=== PATIENT | male | born 1965 | race Caucasian/White ===

== ENCOUNTER → 2022-07-14 | Outpatient (CLI) | payer BC, SELFPAY ==
[2022-07-14 14:37] LABS: Erythrocyte Sedimentation Rate 7 mm/hr (0-20)
[2022-07-14 15:19] LABS: AST(SGOT) 32 U/L (15-37); Alanine Aminotransfer ALT/SGPT 69 U/L (16-61); Albumin, Serum 3.9 g/dL (3.2-5.0); Alkaline Phosphatase 106 U/L (45-117); Amylase 76 U/L (25-115); Anion Gap 4 (5-15); BUN 14 mg/dL (7-18); BUN/Creat Ratio 13.6 RATIO (10-20); CRP < 2.90 mg/L (0.0-3.0); Calcium,Total 9.3 mg/dL (8.5-10.1); Chloride 108 mmol/L (98-107); Creatinine, Serum 1.03 mg/dL (0.70-1.30); EST Glomerular Filtration Rate 79 mL/min (>60); Est Glom Filt Rate - Afr Amer 95 mL/min (>60); Globulin 4.1 g/dL (2.2-4.2); Glucose 105 mg/dL (74-106); LDH 247 U/L (87-241); Lipase 162 U/L (73-393); Potassium 4.9 mmol/L (3.5-5.1); Sodium Level 140 mmol/L (136-145)
[2022-07-16 13:08] LABS: Anti-Centromere B Ab <0.2 AI (0.0-0.9); Anti-Chromatin <0.2 AI (0.0-0.9); Anti-Jo <0.2 AI (0.0-0.9); Anti-Scleroderma-70 AB <0.2 AI (0.0-0.9); RNP Ab <0.2 AI (0.0-0.9); SJOGREN'S Anti-SS-A test < 0.2 AI (0.0-0.9); SJOGREN'S Anti-SS-B test < 0.2 AI (0.0-0.9); Smith Ab <0.2 AI (0.0-0.9)
[2022-07-16 15:08] LABS: Endomysial Antibody IgA Positive (Negative)
[2022-07-17 17:47] LABS: Immunoglobulin A 337 mg/dL (90-386); t-Transglutaminase IgA 39 U/mL (0-3)
[2022-07-17 17:51] LABS: Anti-dsDNA Ab <1 IU/mL (0-9)
[2022-07-23 11:08] LABS: Albumin 3.9 g/dL (2.9-4.4); Alpha-1-Globulins 0.2 g/dL (0.0-0.4); Cytoplasmic Ab (C-ANCA) <1:20 titer (Neg:<1:20); Immunoglobulin A 326 mg/dL (90-386); Immunoglobulin G 942 mg/dL (603-1613); Immunoglobulin M 44 mg/dL (20-172); PROEL- TOTAL PROTEIN 7.3 g/dL (6.0-8.5)
[2022-07-23 11:21] LABS: Immunoglobulin E 42 IU/mL (6-495); Perinuclear Ab (P-ANCA) <1:20 titer (Neg:<1:20)
== END | disposition home or self-care (01) ==
LOC: LAB 13:49
PROVIDERS: PCP Family Medicine; Referring Provider Internal Medicine Gastroenterology; Visit Provider Internal Medicine Gastroenterology
DX: K83.4 Spasm of sphincter of Oddi (principal); K86.1 Other chronic pancreatitis; R79.89 Other specified abnormal findings of blood chemistry
CPT/HCPCS: 36415; 80053; 82150; 82784; 82785; 83516; 83615; 83690; 84165; 85652; 86140; 86225; 86235; 86255; 86256; 86334

== ENCOUNTER → 2022-07-15 | Outpatient (CLI) | payer BC, SELFPAY ==
[2022-07-18 13:04] LABS: Pancreatic Elastase, Fecal 183 (>200)
[2022-07-20 09:22] LABS: Calprotectin, Stool 166 ug/g (0-120); Fats, Neutral Normal (.); Fats, Total Increased (.)
== END | disposition home or self-care (01) ==
PROVIDERS: PCP Family Medicine; Referring Provider Internal Medicine Gastroenterology; Visit Provider Internal Medicine Gastroenterology
DX: K58.9 Irritable bowel syndrome, unspecified (principal); K86.1 Other chronic pancreatitis; K83.4 Spasm of sphincter of Oddi; R79.89 Other specified abnormal findings of blood chemistry
CPT/HCPCS: 82653; 82705; 83630; 83993; 87493; 87506

== ENCOUNTER → 2022-07-23 | Outpatient (CLI) | payer BC, SELFPAY ==
--- NOTE | 2022-07-23 17:40 | CT_ITS ---
EXAM: CT ABDOMEN AND PELVIS WITH INTRAVENOUS CONTRAST CLINICAL INDICATION: abdominal pain TECHNIQUE: Helically acquired images were obtained of the abdomen and pelvis with intravenous contrast. This CT exam was performed using one or more of the following dose reduction techniques: automated exposure control, adjustment of the mA and/or kV according to patient size, and/or use of iterative reconstruction technique. This report was created using [employer] report generation technology. CONTRAST: Oral and amp; IV Readi-CAT and amp; 100mL Isovue-370 RADIATION DOSE: CTDIvol = 19.80 mGy, DLP = 1082.83 mGy-cm. COMPARISON: None. FINDINGS: LOWER THORAX: Unremarkable. Lung bases are clear. No cardiomegaly. No significant pericardial effusion. ABDOMEN: LIVER: Unremarkable. Homogeneous. No focal mass. GALLBLADDER AND BILE DUCTS: Cholecystectomy. No intra- or extrahepatic biliary ductal dilation. PANCREAS: Unremarkable. No focal cystic or solid mass. SPLEEN: Unremarkable. Normal size without focal cystic or solid mass. ADRENALS: Unremarkable. No nodules. KIDNEYS AND URETERS: Small well-circumscribed simple 1.7 cm x 1.3 cm left medial mid renal cyst. No follow-up is necessary. Normal renal size and position. No hydronephrosis. STOMACH AND BOWEL: Oral contrast reached the proximal transverse colon, no obstruction. Moderate stool in the proximal half of the colon, moderate gas in the distal colon and rectum. Possibly mild wall thickening of the jejunal segment, in the left upper abdomen. PELVIS: APPENDIX: Unremarkable retrocecal appendix contains gas. BLADDER: Unremarkable. REPRODUCTIVE: Unremarkable as visualized. No mass. ABDOMEN and PELVIS: INTRAPERITONEAL SPACE: Unremarkable. No ascites or other fluid collection. No free air. BONES/JOINTS: Incidental small typical benign bone hemangioma in T9. No spinal stenosis. No suspicious lytic or blastic abnormality. SOFT TISSUES: Mild bulging into the proximal inguinal rings, no inflammatory changes. No discrete abdominal or pelvic wall hernia. VASCULATURE: Unremarkable. Abdominal aorta is non-dilated. LYMPH NODES: Minimal mesenteric adenopathy. CT/Abdomen/Pelvis WITH Contrast IMPRESSION: Suspicion of jejunal enteritis. No bowel obstruction. Moderate colonic gas and stool. Electronically Signed: Tita Mason MD at 6:42 EDT ,
== END | disposition home or self-care (01) ==
LOC: CT 17:37
PROVIDERS: PCP Family Medicine; Referring Provider Internal Medicine Gastroenterology; Visit Provider Internal Medicine Gastroenterology
DX: K83.4 Spasm of sphincter of Oddi (principal); K86.1 Other chronic pancreatitis; R79.89 Other specified abnormal findings of blood chemistry
CPT/HCPCS: 74177; Q9967

== ENCOUNTER → 2023-01-12 | Outpatient (CLI) | payer BC, SELFPAY ==
[2023-01-12 16:28] LABS: Erythrocyte Sedimentation Rate 14 mm/hr (0-20)
[2023-01-12 16:40] LABS: CRP < 2.90 mg/L (0.0-3.0)
[2023-01-14 15:08] LABS: Endomysial Antibody IgA Negative (Negative); Immunoglobulin A 333 mg/dL (90-386); t-Transglutaminase IgA 4 U/mL (0-3)
== END | disposition home or self-care (01) ==
LOC: LAB 15:11
PROVIDERS: PCP Family Medicine; Referring Provider Internal Medicine Gastroenterology; Visit Provider Internal Medicine Gastroenterology
DX: K90.0 Celiac disease (principal); K85.00 Idiopathic acute pancreatitis without necrosis or infection
CPT/HCPCS: 36415; 82784; 83516; 85652; 86140; 86255

== ENCOUNTER → 2023-01-16 | Outpatient (CLI) | payer BC, SELFPAY ==
[2023-01-21 15:08] LABS: Pancreatic Elastase, Fecal 137 (>200)
== END | disposition home or self-care (01) ==
LOC: LABSPEC 06:15
PROVIDERS: PCP Family Medicine; Referring Provider Internal Medicine Gastroenterology; Visit Provider Internal Medicine Gastroenterology
DX: K90.0 Celiac disease (principal); K85.00 Idiopathic acute pancreatitis without necrosis or infection
CPT/HCPCS: 82653

== ENCOUNTER → 2023-05-07 | Outpatient (CLI) | payer BC, SELFPAY ==
[2023-05-07 15:11] LABS: Erythrocyte Sedimentation Rate 17 mm/hr (0-20)
[2023-05-07 15:43] LABS: CRP < 2.90 mg/L (0.0-3.0)
[2023-05-11 14:08] LABS: Endomysial Antibody IgA Negative (Negative); Immunoglobulin A 302 mg/dL (90-386); t-Transglutaminase IgA <2 U/mL (0-3)
== END | disposition home or self-care (01) ==
LOC: LAB 14:27
PROVIDERS: PCP Family Medicine; Referring Provider Internal Medicine Gastroenterology; Visit Provider Internal Medicine Gastroenterology
DX: K90.0 Celiac disease (principal)
CPT/HCPCS: 36415; 82784; 83516; 85652; 86140; 86255

== ENCOUNTER 2023-07-20 09:34 | Day surgery (SDC) | payer BC, SELFPAY ==
[2023-07-20] VITALS (8 sets, daily range): BP systolic 94–141; BP diastolic 71–90; PULSE 64–77; RESP 12–18; TEMP 36.3–36.7; O2SAT 97–100; BMI 25.4
--- NOTE | 2023-07-20 09:54 | HP.PCM_ITS ---
History and Physical Date of Admission: 07/20/23 57 M who presents to the office today for FH colon cancer with mets to liver mother with age 52; father colitis; brother colitis with r/t esophageal vessel rupture. Prior workup: MRI abd 06.11.18 OSH with degradation of exam r/t motion. Distal pancreatic cyst 3mm. Hepatic subcentimeter cysts noted with right lobe, steatosis. *BGI established 07.14.22 with history of idiopathic chronic pancreatitis and previously diagnosed sphincter Oddi dysfunction by Dr. Pitts [facility]. Utilizes Creon 36k 2 tabs with meals to manage pancreatitis; increased approximately a ye ar prior and aided in reducing frequency. Feels he is doing overall well but has issues several times a month with LUQ abdominal pain radiating into back, increased flatulence; symptoms previously lasted approximately a day but have since been lasting longer. Previous doctor prescribed PRN oxycodone for the pain which was helpful and will follow a clear liquid diet. GERD and issue which is managed with Prilosec 20mg QD. ? Biochemical CRP, ANCA, amylase, CMP (ALT H69), lipase, ESR, GAME, ALBINA without pertinent abnormality. LDH H247, Celiac +, tiss transglutaminase H39 Stool testing C.Difficile (cancelled), enteric pathogen, lactoferrin WNL. Ova/parasites and giardia not run. Calprotectin H166, Elastase L183, total fats increased Contact 07.18.22 to discuss results. ? CT abd/pel 07.23.22 with findings suggestive of jejunal enteritis and moderate colonic gas and stool burden. OV 10.10.22 suspect celiac disease-causing EPI resulting in pancreatitis, though there is possibility of chronic pancreatitis not related to celiac disease. Perform blood/stool testing after 3 months of gluten free. OV 01.12.23 Feels he is doing well since going gluten free; will continue to have intermittent bloating and pain that he can trace to foods. Does not wish to see esthetician facialist at this time. ? Biochemical ESR, CRP WNL. ? Celiac +, tiss transglutaminase 4 ? Stool elastase L 137 Contact 01.15.23 with bloodwork results, start gluten free diet. Contact 01.22.23 to increase Creon to 3 with meals and two with snacks; call in 1-2 months with an update. ? Biochemical 05.07.23 ESR, CRP, celiac WNL. OV 05.22.23 Is doing over all well since last visit. Has been trying hard to continue gluten free diet. Still has intermittent abdominal pain. Unsure if related to gluten intake or not. BM normal/ ROS Const Constitutional: No fatigue ENT ENT: No difficulty swallowing Gastro GI: Positive for excessive flatus and nausea/dyspepsia; No abdominal pain, belching, bloating, change in bowel habits, change in stool character, coffee ground emesis, constipation, cramping, diarrhea, heartburn, difficulty swallowing, feeling full early, incontinent of stools, Vomiting blood/hematemesis, Blood in stool, loose stools, Black,tarry stools, pain with swallowing, vomiting or other Musc Musculoskeletal: No joint pain Skin Skin: No yellowing of the eye or itchy eyes Psych Psychiatric: No anxiety and No depression Endo Endocrine: No fatigue Aller/Imm Allergy/Immunologic: No itchy eyes Ag/Lymp Hematologic/Lymphatic: No easy bleeding or easy bruising Exam Const General: cooperative and comfortable Nutritional Appearance: average body habitus and well nourished [facility] Head: normal to inspection Ears: hearing grossly normal bilaterally Nose: external nose normal Face and sinus: normal facial exam Mouth: oral mucosae normal Throat: posterior oropharynx normal Eyes General: appearance normal, both eyes and all related structures Neck Neck: normal visual inspection Chest Chest palpation & inspection: normal inspection of the chest and normal palpation of entire chest wall Resp Effort & Inspection: normal respiratory effort Auscultation: Bilateral: Clear to Auscultation Cardio Palpation: normal PMI Rate: regular rate Rhythm: regular rhythm GI Inspection: normal to inspection Auscultation: normal bowel sounds Percussion: normal to percussion Palpation: no hepatosplenomegaly Skin General: no rashes or lesions noted Neuro General: patient alert Extrem General: normal to inspection Psych Affect: normal affect Quality Reporting Tobacco Screening ([facility] 138) Smoking Status: Former smoker Assessment and Plan Assessment and Plan (1) Celiac disease: Status: Chronic Plan: From his imaging showing jejunitis, stool studies that show elevated fecal calprotectin and low fecal elastase, a high antiendomysial antibody and a very high tissue transglutaminase antibody I suspect that he has celiac disease that is indirectly causing exocrine pancreatic insufficiency therefore resulting in pancreatitis. (2) Idiopathic pancreatitis: Status: Chronic Qualifiers: Chronicity: acute Acute pancreatitis complication: unspecified Qualified Code(s): K85.00 - Idiopathic acute pancreatitis without necrosis or infection Plan: It is possible that he has elements of chronic pancreatitis because he says that anytime he has any alcohol he gets abdominal pain that is include sugar alcohols and alcohols such as alcohol and mouthwash. Otherwise he does not take in any alcohol because of the pain associated with it. I told him that we would have to see what his tissue transglutaminase does, ESR, CRP, fecal calprotectin and fecal elastase is after 3 months of being on a gluten-free diet. 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 There are no clinical changes since date of exam.
[2023-07-20] MEDS: Lactated Ringers 1,000 ML 15 ML IV (10:01)
--- NOTE | 2023-07-20 11:01 | OP.CCLET_ITS ---
07/20/2023 Israel Haque MD Re : Colonoscopy procedure for Destin Alexandra Dear Dr. Haque This procedure was performed on Thursday, July 20, 2023. My impressions and recommendations are as follows: Impressions : - Diverticulosis in the sigmoid colon. - The examination was otherwise normal on direct and retroflexion views. - No specimens collected. Recommendations : - Discharge patient to home. - Resume previous diet. - Continue present medications. - Repeat colonoscopy in 10 years for screening purposes. My findings are described in the full procedure note, which is enclosed. If I can be of further assistance, please feel free to contact me at . Sincerely, Harvey Pereira, 07/20/2023 11:00:27 AM This report has been signed electronically.
--- NOTE | 2023-07-20 11:01 | OP.COLON_ITS ---
Patient Name: Destin Alexandra Procedure Date: 07/20/2023 10:25 AM Date of : 1965 Age: 57 Procedure: Colonoscopy Indications: Screening for colorectal malignant neoplasm Providers: Harvey Pereira DO Referring MD: Israel Haque MD Medicines: Monitored Anesthesia Care Patient Profile: This is a 57 year old male. Refer to note in patient chart for documentation of history and physical. Last Colonoscopy: date unknown. Unable to locate last colonoscopy report. Complications: No immediate complications. Procedure: Pre-Anesthesia Assessment: - Prior to the procedure, a History and Physical was performed, and patient medications and allergies were reviewed. The patient is competent. The risks and benefits of the procedure and the sedation options and risks were discussed with the patient. All questions were answered and informed consent was obtained. Patient identification and proposed procedure were verified by the physician in the pre-procedure area. Mental Status Examination: alert and oriented. Airway Examination: normal oropharyngeal airway and neck mobility. Respiratory Examination: clear to auscultation. CV Examination: normal. Prophylactic Antibiotics: The patient does not require prophylactic antibiotics. Prior Anticoagulants: The patient has taken no anticoagulant or antiplatelet agents. ASA Grade Assessment: II - A patient with mild systemic disease. After reviewing the risks and benefits, the patient was deemed in satisfactory condition to undergo the procedure. The anesthesia plan was to use monitored anesthesia care (MAC). Immediately prior to administration of medications, the patient was re-assessed for adequacy to receive sedatives. The heart rate, respiratory rate, oxygen saturations, blood pressure, adequacy of pulmonary ventilation, and response to care were monitored throughout the procedure. The physical status of the patient was re-assessed after the procedure. After I obtained informed consent, the scope was passed under direct vision. Throughout the procedure, the patient's blood pressure, pulse, and oxygen saturations were monitored continuously. The pediatric colonoscope was introduced through the anus and advanced to the cecum, identified by appendiceal orifice and ileocecal valve. The colonoscopy was performed without difficulty. The patient tolerated the procedure well. The quality of the bowel preparation was adequate. The ileocecal valve, appendiceal orifice, and rectum were photographed. Scope In: 10:35:10 AM Scope Withdrawal Time 0 hours 9 minutes 19 seconds Scope Out: 10:50:30 AM Total Procedure Duration Time 0 hours 15 minutes 20 seconds Findings: The perianal and digital rectal examinations were normal. A few small-mouthed diverticula were found in the sigmoid colon. The exam was otherwise without abnormality on direct and retroflexion views. Impression: - Diverticulosis in the sigmoid colon. - The examination was otherwise normal on direct and retroflexion views. - No specimens collected. Recommendation: - Discharge patient to home. - Resume previous diet. - Continue present medications. - Repeat colonoscopy in 10 years for screening purposes. Procedure Code(s): --- Professional --- G0121, Colorectal cancer screening; colonoscopy on individual not meeting criteria for high risk CPT copyright 2021 [employer]. All rights reserved. The codes documented in this report are preliminary and upon private watchman review may be revised to meet current compliance requirements. Harvey Pereira DO 07/20/2023 11:00:27 AM This report has been signed electronically. Number of Addenda: 0 Note Initiated On: 07/20/2023 10:25 AM
== END 2023-07-20 11:48 | disposition home or self-care (01) ==
LOC: EN 09:35 → AC 09:36
PROVIDERS: PCP Family Medicine; Referring Provider Family Medicine; Visit Provider Internal Medicine Gastroenterology
PROC: 0DJD8ZZ Inspection of Lower Intestinal Tract, Via Natural or Artificial Opening Endoscopic (ICD-10-PCS; CPT 45378; principal; 2023-07-20 10:25)
DX: K90.0 Celiac disease (principal); K57.30 Diverticulosis of large intestine without perforation or abscess without bleeding; Z87.891 Personal history of nicotine dependence; Z80.0 Family history of malignant neoplasm of digestive organs; K85.00 Idiopathic acute pancreatitis without necrosis or infection
CPT/HCPCS: 45378; J7120; J2405

== ENCOUNTER → 2023-08-06 | Outpatient (CLI) | payer BC, SELFPAY ==
--- NOTE | 2023-08-06 13:36 | CT_ITS ---
STUDY: CT ABDOMEN AND PELVIS WITH CONTRAST REASON FOR EXAM: Male, 57 years old. Abdominal pain. History of celiac disease. Chronic abdominal pain. RADIATION DOSAGE (If Supplied By Facility): CTDIvol = ( 15.35 ) mGy, DLP = ( 750.74 ) mGycm TECHNIQUE: Transaxial images were obtained from the dome of the diaphragm to the symphysis pubis with oral contrast. Oral and amp;amp; IV Readi-CAT and amp;amp; 100mL Isovue-300 was administered. Sagittal and coronal images were reconstructed. Individualized dose optimization techniques were used for this CT. COMPARISON: Comparison is made with prior study dated July 23, 2022. FINDINGS: The visualized lung bases are unremarkable. The visualized portions of the heart are within normal limits. There is decreased attenuation of the liver consistent with steatosis. The patient is status post cholecystectomy. Normal spleen. Heterogeneous enlargement of the head of the prostate with tiny cystic changes within. Correlation with ultrasound or MRI is recommended. Normal bilateral adrenal glands. Normal right kidney. Stable 1.7 cm cyst in the medial aspect of the left kidney. Normal visualized stomach. Normal small intestine. There are scattered colonic diverticula consistent with diverticulosis. The appendix is visualized and appears normal. Normal abdominal aorta. Normal inferior vena cava. Normal retroperitoneum. Normal urinary bladder. Normal abdominal wall. There are mild degenerative changes of the visualized lumbar spine. CT/Abdomen/Pelvis WITH Contrast IMPRESSION: Heterogeneous enlargement of the head of the pancreas with tiny cystic changes within. Correlation with ultrasound and/or MRI is recommended for further evaluation. Electronically Signed: Carlos Casillas MD at 15:22 EST ,
== END | disposition home or self-care (01) ==
LOC: CT 13:35
PROVIDERS: PCP Family Medicine; Referring Provider Internal Medicine Gastroenterology; Visit Provider Internal Medicine Gastroenterology
DX: K90.0 Celiac disease (principal); R10.84 Generalized abdominal pain
CPT/HCPCS: 74177; Q9967

== ENCOUNTER → 2023-08-24 | Outpatient (CLI) | payer BC, SELFPAY ==
--- NOTE | 2023-08-24 10:38 | US_ITS ---
INDICATION: CT 11.9.23 abnormality recommend US, PANCREATITIS EXAMINATION: Ultrasound US Abdomen RUQ (limited) TECHNIQUE: Ac scale and color doppler imaging was performed of the right upper quadrant. COMPARISON: 08/06/2023 CT and 07/23/2015 ultrasound. FINDINGS: LIVER: Heterogeneous increased echogenicity. Mildly enlarged with the right lobe length measuring 16.4 cm No evidence of a mass. No intrahepatic duct dilation. GALLBLADDER: Status post cholecystectomy. COMMON BILE DUCT: Normal measuring 3 mm in diameter. PANCREAS: Nonvisualization of the pancreas due to overlying bowel gas. RIGHT KIDNEY: 5 mm nonobstructing stone. FREE FLUID: No free fluid in the right upper quadrant. US/Abdomen Limited IMPRESSION: 1. Pancreas not visualized due to overlying bowel gas. 2. Fatty infiltration of the liver and mild hepatomegaly. 3. No evidence of an acute abnormality in the right upper quadrant. Electronically Signed: Israel Beck DO at 5:37 EST ,
== END | disposition home or self-care (01) ==
LOC: US 10:37
PROVIDERS: PCP Family Medicine; Referring Provider Internal Medicine Gastroenterology; Visit Provider Internal Medicine Gastroenterology
DX: K85.00 Idiopathic acute pancreatitis without necrosis or infection (principal)
CPT/HCPCS: 76705

== ENCOUNTER → 2023-11-16 | Outpatient (CLI) | payer BC, SELFPAY ==
[2023-11-16 15:06] LABS: ALB/GLOB Ratio 1.1 RATIO (0.9-2.4); AST(SGOT) 26 U/L (15-37); Alanine Aminotransfer ALT/SGPT 63 U/L (16-61); Albumin, Serum 3.8 g/dL (3.2-5.0); Alkaline Phosphatase 87 U/L (45-117); Amylase 79 U/L (25-115); Anion Gap 2 (5-15); BUN 13 mg/dL (7-18); BUN/Creat Ratio 11.9 RATIO (10-20); Calcium,Total 8.9 mg/dL (8.5-10.1); Chloride 111 mmol/L (98-107); Creatinine, Serum 1.09 mg/dL (0.70-1.30); EST Glomerular Filtration Rate 73 mL/min (>60); Est Glom Filt Rate - Afr Amer 89 mL/min (>60); Globulin 3.6 g/dL (2.2-4.2); Glucose 99 mg/dL (74-106); Lipase 46 U/L (13-75); Potassium 4.5 mmol/L (3.5-5.1); Protein, Total 7.4 g/dL (6.4-8.2); Sodium Level 140 mmol/L (136-145)
[2023-11-18 16:10] LABS: Carbohydrate AG 19-9 25 U/mL (0-35); Deamidated Gliadin IgA 25 units (0-19); Deamidated Gliadin IgG 8 units (0-19); Endomysial Antibody IgA Negative (Negative); Immunoglobulin A 330 mg/dL (90-386); t-Transglutaminase IgA <2 U/mL (0-3)
== END | disposition home or self-care (01) ==
LOC: LAB 13:47
PROVIDERS: PCP Family Medicine; Referring Provider Internal Medicine Gastroenterology; Visit Provider Internal Medicine Gastroenterology
DX: K90.0 Celiac disease (principal); K85.00 Idiopathic acute pancreatitis without necrosis or infection
CPT/HCPCS: 36415; 80053; 82150; 82784; 83516; 83690; 86255; 86301

== ENCOUNTER → 2023-11-17 | Outpatient (CLI) | payer BC, SELFPAY ==
--- OUTSIDE RECORDS SUMMARY | 2023-11-17 19:55 | XMS RPT_ITS | CCD ---
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 Name Role Phone Shama Santiago MD Primary Care Provider SHAMA SANTIAGO Attending Unavailable SHAMA SANTIAGO Primary Care Unavailable SHAMA SANTIAGO Primary Care Unavailable SHAMA SANTIAGO Referring Unavailable SHAMA SANTIAGO Primary Care Unavailable SHAMA SANTIAGO Referring Unavailable SHAMA SANTIAGO Attending Unavailable SHAMA SANTIAGO Primary Care Unavailable SHAMA SANTIAGO Referring Unavailable Shama Santiago MD Primary Care Provider SHAMA SANTIAGO Primary Care Unavailable FRIEND, DO GODFREY Attending Unavailable FRIEND, DO GODFREY Referring Unavailable Allergies Allergy Classification Reported Allergen(s) Allergy Type Date of Onset Reaction(s) Facility (2 sources) Penicillins; Translations: [PENICILLINS] Drug Allergy 11-05-2005 Swelling, Shortness of Breath [facility] Work Phone: (15 sources) topiramate; Translations: [TOPIRAMATE] Drug Allergy 2015 Other: See Comments [facility] Work Phone: (15 sources) Valproate; Translations: [DIVALPROEX SODIUM] Drug Allergy 2015 Other: See Comments [facility] Work Phone: (2 sources) Tetanus Vaccines And Toxoid; Translations: [TETANUS VACCINES AND TOXOID] Drug Allergy 11-05-2005 Swelling [facility] Work Phone: (13 sources) Penicillins Drug Allergy 11-05-2005 Swelling, Shortness of Breath [facility] Work Phone: (13 sources) Tetanus Vaccines And Toxoid Drug Allergy 11-05-2005 Swelling [facility] Work Phone: Medications Completed/Discontinued Medications Medication Drug Class(es) Dates Sig (Normalized) Sig (Original) amylase 087323 unt / lipase 95252 unt / protease [id number] unt delayed release oral capsule (17 sources) Start: 10-12-2021 End: 05-14-2023 take 3 capsules by mouth three times daily at mealtime zoivlb-ikquxilv-ka ylase (CREON) 36,000-114,000- 180,000 unit delayed release capsule Take 3 capsules by mouth three times daily with meals. 810 capsule 3 05/14/2023 Active Problems Active Problems Problem Classification Problem Date Documented Da te Episodic/Chronic Biliary tract disease (15 sources) Dysfunction of sphincter of Oddi; Translations: [Spasm of sphincter of Oddi] Onset: 5 05-12-2017 Chronic Calculus of urinary tract (14 sources) Urolithiasis ; Translations: [Urinary calculus, unspecified] 09-23-2021 Episodic Disorders of lipid metabolism (18 sources) Mixed hyperlipidemia; Translations: [Mixed hyperlipidemia] Onset: 5 2015 Chronic Esophageal disorders (18 sources) Gastroesophageal reflux disease without esophagitis; Translations: [Gastro-esophageal reflux disease without esophagitis] Onset: 6 09-23-2021 Chronic Headache; including migraine (17 sources) Migraine without aura, not refractory ; Translations: [Migraine without aura, not intractable, without status migrainosus] Onset: 6 11-08-2015 Chronic Other gastrointestinal disorders (13 sources) Celiac disease; Translations: [Celiac disease] Onset: 3 Chronic Other screening for suspected conditions (not mental disorders or infectious disease) (15 sources) Liver function tests abnormal; Translations: [Abnormal results of liver function studies] Onset: 6 2015 Episodic Other upper respiratory disease (15 sources) Allergic rhinitis; Translations: [Allergic rhinitis, unspecified] Onset: 6 11-17-2018 Chronic Other upper respiratory disease (14 sources) Deviated nasal septum; Translations: [Deviated nasal septum] 2015 Episodic Pancreatic disorders (not diabetes) (18 sources) Idiopathic chronic pancreatitis; Translations: [Other chronic pancreatitis] Onset: 05-12-2017 Chronic Past or Other Problems Problem Classification Problem Date Documented Date Episodic/Chronic Abdominal hernia (14 sources) Diaphragmatic hernia; Translations: [Diaphragmatic hernia without obstruction or gangrene] Onset: 10-05-2007 2015 Episodic Anal and rectal conditions (14 sources) Anal fissure; Translations: [Anal fissure, unspecified] Onset: 01-22-2012 2015 Episodic Diabetes mellitus without complication (18 sources) Hyperglycemia; Translations: [Impaired fasting glucose] Onset: 11-13-2017 11-13-2017 Episodic Genitourinary symptoms and ill-defined conditions (14 sources) Proteinuria; Translations: [Proteinuria, unspecified] Onset: 11-28-2016 05-12-2017 Episodic Immunizations and screening for infectious disease (1 source) Encounter for immunization; Translations: [Encounter for immunization] Onset: 10-15-2022 Episodic Other aftercare (1 source) Drug therapy finding; Translations: [Other assisted (current) drug therapy] Onset: 11-10-2016 11-13-2017 Episodic Other aftercare (20 sources) Patient encounter status; Translations: [Other assisted (current) drug therapy] Onset: 11-08-2015 09-12-2020 Episodic Other aftercare (1 source) Other assisted (current) drug therapy; Translations: [Medication management] Onset: 09-12-2020 Episodic Other skin disorders (14 sources) Vitiligo; Translations: [Vitiligo] Onset: 11-08-2015 11-17-2018 Episodic Pancreatic disorders (not diabetes) (15 sources) Cyst of pancreas; Translations: [Cyst of pancreas] Onset: 05-23-2019 05-23-2019 Episodic Screening and history of mental health and substance abuse codes (14 sources) Ex-smoker; Translations: [Personal history of nicotine dependence] Onset: 03-27-2021 03-27-2021 Episodic Results Test Name Value Interpretation Reference Range Facil ity Vital Signs Date Time Vital Sign Value Performing Clinician Elenita bradford 05-14-2023 15:09-0400 Body height 174 cm Shama Santiago MD Work Phone: [facility] 05-14-2023 15:09-0400 Body weight 77.56 kg Shama Santiago MD Work Phone: [facility] 05-14-2023 15:09-0400 Diastolic blood pressure 80 mm[Hg] Shama Santiago MD Work Phone: [facility] 05-14-2023 15:09-0400 Heart rate 68 /min Shama Santiago MD Work Phone: [facility] 05-14-2023 15:09-0400 Respiratory rate 16 /min Shama Santiago MD Work Phone: [facility] 05-14-2023 15:09-0400 SaO2% (BldA) [Mass fraction] 98 % Shama Santiago MD Work Phone: [facility] 05-14-2023 15:09-0400 Systolic blood pressure 128 mm[Hg] Shama Santiago MD Work Phone: [facility] 10-15-2022 14:36-0500 Diastolic blood pressure 80 mm[Hg] Shama Santiago MD Work Phone: [facility] 10-15-2022 14:36-0500 Systolic blood pressure 130 mm[Hg] Shama Santiago MD Work Phone: [facility] 10-15-2022 14:01-0500 Body weight 78.93 kg Shama Santiago MD Work Phone: [facility] 10-15-2022 14:01-0500 Heart rate 60 /min Shama Santiago MD Work Phone: [facility] 10-15-2022 14:01-0500 Respiratory rate 16 /min Shama Santiago MD Work Phone: [facility] 04-14-2022 14:00-0400 Body height 173.4 cm Shama Santiago MD Work Phone: [facility] 04-14-2022 14:00-0400 Body weight 78.47 kg Shama Santiago MD Work Phone: [facility] 04-14-2022 14:00-0400 Diastolic blood pressure 86 mm[Hg] Shama Santiago MD Work Phone: [facility] 04-14-2022 14:00-0400 Heart rate 64 /min Shama Santiago MD Work Phone: [facility] 04-14-2022 14:00-0400 Respiratory rate 14 /min Shama Santaigo MD Work Phone: [facility] 04-14-2022 14:00-0400 Systolic blood pressure 120 mm[Hg] Shama Santiago MD Work Phone: [facility] Encounters Encounter Date Encounter Type Care Provider Facility Start: 11-17-2023 Chart abstracting Shama mccray MD Work Phone: [facility] Procedures Date Procedure Procedure Detail Performing Clinician Start: 07-20-2023 Colonoscopy Shama mccray MD Work Phone: Start: 05-07-2023 Lipid 1996 panel - S darrell or Plasma Shama Santiago MD Work Phone: Start: 04-14-2022 Adult depression scr eening assessment Shama Santiago MD Work Phone: Start: 12-25-2017 Colonoscopy Shama mccray MD Work Phone: Plan of Treatment Date Care Activity Detail Author Start: 07-20-2033 Colonoscopy Colonoscopy [facility] Start: 07-20-2033 Colorectal Cancer Screening Colorectal Cancer Screening [facility] Start: 07-20-2033 Screening for malignant neoplasm of colon [facility] Start: 05-07-2028 Lipid 1996 panel - Serum or Plasma Lipid Screening [facility] Start: 05-07-2028 Lipid panel Lipid Screening [facility] Start: 05-07-2028 LIPID SCREEN LIPID SCREEN [facility] Start: 05-07-2028 PROSTATE CANCER SCREENING DISCUSSION PROSTATE CANCER SCREENING DISCUSSION [facility] Start: 05-07-2028 Prostate specific antigen measurement Prostate Cancer Screening Discussion [facility] Start: 10-15-2027 LIPID SCREEN LIPID SCREEN [facility] Start: 04-14-2027 LIPID SCREEN LIPID SCREEN [facility] Start: 04-14-2027 PROSTATE CANCER SCREENING DISCUSSION PROSTATE CANCER SCREENING DISCUSSION [facility] Start: 10-12-2026 LIPID SCREEN LIPID SCREEN [facility] Start: 05-07-2026 DIABETES SCREEN DIABETES SCREEN [facility] Start: 05-07-2026 Diabetes Screening Diabetes Screening [facility] Start: 04-03-2026 PROSTATE CANCER SCREENING DISCUSSION PROSTATE CANCER SCREENING DISCUSSION [facility] Start: 10-15-2025 DIABETES SCREEN DIABETES SCREEN [facility] Start: 04-14-2025 DIABETES SCREEN DIABETES SCREEN [facility] Start: 10-12-2024 DIABETES SCREEN DIABETES SCREEN [facility] Start: 10-30-2023 End: 12-30-2023 Comprehensive metabolic 2000 panel - Serum or Plasma COMP METABOLIC PANEL Lab Routine Mixed hyperlipidemia Expected: 10/30/2023, Expires: 12/30/2023 [facility] Work Phone: Immunizations Immunization Date Immunization Notes Care Provider Fa david 10-12-2021 influenza, injectabl e, quadrivalent, contains preservative Shama Santiago MD Work Phone: [facility] 01-10-2021 COVID-19 vaccine, fu ll dose (MODERNA) Shama Santiago MD Work Phone: [facility] 12-13-2020 COVID-19 vaccine, fu ll dose (MODERNA) Shama Santiago MD Work Phone: [facility] Work Phone: 11-13-2020 zoster vaccine recombinant Shama Santiago MD Work Phone: [facility] Work Phone: 09-12-2020 influenza, injectabl e, quadrivalent, contains preservative Shama Santiago MD Work Phone: [facility] 09-12-2020 zoster vaccine recombinant Shama Santiago MD Work Phone: [facility] Payers Date Payer Category Payer Unknown [employer] PPO OOS [id number] 2012-Present [phone] [address] [place] [address] PPO [id number] 2012 Unknown [employer] PPO OOS [id number] 2012-Present [phone] [address] [place] [address] PPO [id number] 2012 Unknown [id number] 1965 Unknown [id number] Unknown [id number] Social History Date Type Detail Facility Start: 06-30-2014 End: 10-15-2022 Tobacco smoking status NHIS Ex-smoker [facility] History of tobacco use Cigarette Smoker C [facility] Start: 10-12-2021 End: 05-14-2023 Alcohol intake Current non-drinker of alcohol (finding) [facility] Start: 1965 Sex Assigned At Not on file [facility] Start: 04-04-2022 End: 04-14-2022 Exposure to SARS-CoV-2 (event) Not sure [facility] History of tobacco use Current smoker [facility] Work Phone: Start: 06-30-2014 End: 05-14-2023 Cigarettes smoked current (pack per day) - Reported 1 [facility] Work Phone: Start: 06-30-2014 End: 10-15-2022 Tobacco use and exposure Smokeless tobacco non-user [facility] Work Phone: Start: 10-15-2022 Tobacco Comment quit [address] [place] [address] Start: 10-15-2022 End: 05-14-2023 Tobacco use panel [facility] Work Phone: Adult Depression Screening Assessment 0 [facility] Work Phone: Clinical Notes 01-29-2022 to 11-17-2023 Isaac Mora LPN - 11/17/2023 10:20 AM ESTTelephone Encounter - Shama Santiago MD - 10/25/2023 8:25 PM ESTTelephone Encounter - Ellen Villanueva Ma - 10/24/2023 9:40 AM EST Note Date & Type Note Facility 11-17-2023 History of Presen t illness Narrative Scan on 11/16/2023 3:29 PM by Provider, SCAR Martinez: Chemistry documented in this encounter [facility] 10-25-2023 Miscellaneous Notes The following approved medication requests have been transmitted electronically. Requested Prescriptions Signed Prescriptions Disp Refills atorvastatin (LIPITOR) 10 mg tablet 90 tablet 1 Sig: TAKE 1 TABLET DAILY AT BEDTIME FOR CHOLESTEROL Authorizing Provider: SHAMA SANTIAGO MD Patient has been identified by name and date of : Yes, Provider Shama Santiago MD Date October 24, 2023 Time 9:40 AM Patient phones for refill(s): Requested Prescriptions Pending Prescriptions Disp Refills atorvastatin (LIPITOR) 10 mg tablet [Pharmacy Med Name: ATORVASTATIN TABS 10MG] 90 tablet 3 Sig: TAKE 1 TABLET DAILY AT BEDTIME FOR CHOLESTEROL Date of last office visit in primary care: 05/14/2023 Date of next office visit in primary care: 11/18/2023 Please advise. Thank you. Ellen Villanueva Ma. documented in this encounter [facility] 07-23-2023 Miscellaneous Notes The following approved medication requests have been transmitted electronically. Requested Prescriptions Signed Prescriptions Disp Refills omeprazole (PRILOSEC) 20 mg capsule 90 capsule 1 Sig: Take 1 capsule by mouth once daily. Authorizing Provider: SHAMA SANTIAGO propranolol ER (INDERAL LA) 80 mg 24 hr capsule 90 capsule 1 Sig: Take 1 capsule by mouth once daily. Authorizing Provider: SHAMA SANTIAGO MD Last refill 01/14/23 Qty: 90 with 1 refill [facility] 05/14/23 NOV 11/18/23 Isaac Mora LPN Pharmacy verified in [facility] Patient has been identified by name and date of : Yes Patient aware RX will be sent to pharmacy. No need to notify patient. Patient phones for refill(s): Requested Prescriptions Pending Prescriptions Disp Refills omeprazole (PRILOSEC) 20 mg capsule 90 capsule 1 Sig: Take 1 capsule by mouth once daily. propranolol ER (INDERAL LA) 80 mg 24 hr capsule 90 capsule 1 Sig: Take 1 capsule by mouth once daily. Date of last office visit : 05/14/2023 Date of next office visit : 11/18/2023 Last 2 Encounter Wt Readings: Date: Wt: 05/14/2023 77.6 kg (171 lb) 10/15/2022 78.9 kg (174 lb) Not applicable Please advise. Mya Barnard documented in this encounter [facility] 07-21-2023 Note HNO ID: [id number] Author: Becka Clark LPN Service: ? Author Type: ? Type: Progress Notes Filed: 07/21/2023 6:16 PM Note Text: Scan on 07/20/2023 11:13 AM by Michelle Maloney PA-C: Colonoscopy Scan on 07/20/2023 11:10 AM by Michelle Maloney PA-C: Colonoscopy [facility] 07-21-2023 History of Presen t illness Narrative Scan on 07/20/2023 11:13 AM by Michelle Maloney PA-C: Colonoscopy Scan on 07/20/2023 11:10 AM by Michelle Maloney PA-C: Colonoscopy documented in this encounter [facility] 05-14-2023 Note HNO ID: [id number] Author: Shama Santiago MD Service: ? Author Type: Physician Type: Progress Notes Filed: 05/14/2023 7:50 PM Note Text: Chief Complaint Patient presents with: Physical HPI Destin Alexandra is a 57 year old male who presents here today for Physical. Office visit - Physical 05/14/2023 Patient with Hx of Chronic pancreatitis, elevated fasting blood sugar, GERD, hyperlipidemia, Migraines as well as those reviewed and addresed below and in ROS. Patient has been doing ok. Had a pancreatitis flare last week and needs a refill of his percocet he takes prn. Office visit - 6 month follow up 10/15/2022 Patient with Hx of Chronic pancreatitis, elevated fasting blood sugar, GERD, hyperlipidemia, Migraines as well as those reviewed and addresed below and in ROS. Patient has seen Dr. Pereira in [place] and has been diagnosed with Celiac disease and he suspects this may be causing his pancreatitis attacks. Past medical history, appointments, medications, allergies reviewed. Previous Medical History PAST MEDICAL HISTORY Diagnosis Date Allergic rhinitis 11/05/2005 Anal fissure 01/22/2012 Celiac disease 10/15/[address] Pereira Current use of proton pump inhibitor 11/10/2016 Mg check 10/2017 Current use of proton pump inhibitor 11/10/2016 Mg check 10/2017 Deviated nasal septum per CT: recurrent sinusitis Diaphragmatic hernia without mention of obstruction or gangrene 10/05/2007 Elevated fasting blood sugar 11/13/2017 Ex-smoker 03/27/2021 Started 14 and quit 5 years later. Smoked 1 pack per week Gastroesophageal reflux disease without esophagitis 11/08/2015 Normal EGD 2006, while on PPI Idiopathic chronic pancreatitis (HCC) 05/12/2017 Causes was not determined (but may been the Depakote or Topamax he was on and is a side affect) Migraine without aura and without status migrainosus, not intractable 11/08/2015 has had benefits from Midrin, inderal, Imitrex, Ellavil. 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 10/30 liver US normal; 11/01 CT: poss. 4mm liver cyst; 09/29 hepatitis serology A,B,C negative Pancreatic cyst 05/23/2019 With Hx of pancreatitis will get US every 3 yrs. Next due 2020. Proteinuria 11/28/2016 Recheck 12/2016 was neg. Sphincter of Oddi dysfunction 2015 Syncope and collapse 01/01 referral to Kare[facility] Isaacs, neuro: diagnosed as vasovagal. EEG normal. Also 2D echo Normal; carotid duplex: 0-29% stenosis. CT WWO contrast brain: negative except left maxillary sinusitis; deviated septum, retention cyst Urinary calculus, unspecified Renal stones, multiple CT confirmations: at least seven occurrences. Stones: calcium oxalate/ calcium phospate. 24 urine: calcium, creatinine, Na normal; citrate low, uric acid and oxalate high Vitiligo 11/08/2015 Previous Surgical History PAST SURGICAL HISTORY Procedure Laterality Date CHOLECYSTECTOMY 07/04/14 COLONOSCOPY 02/02/12 repeat 5 yrs COLONOSCOPY FLX DX W/COLLJ SPEC WHEN PFRMD 10/05/2007 Colonoscopy COLONOSCOPY FLX DX W/COLLJ SPEC WHEN PFRMD 12/25/2017 Colonoscopy - 5 year follow-up normal-family history- ESOPHAGOGASTRODUODENOSCOPY TRANSORAL DIAGNOSTIC 10/05/2007 EGD FECAL OCCULT BLOOD TEST 11/28/2016 negative PAST SURGICAL HISTORY OF 1985 muscle biopsy--myositis?; symptoms resolved at intake visit 06/04 SEPTOPLASTY/SUBMUCOUS RESECJ W/WO CARTILAGE GRF 2003 Septoplasty SPHINCTEROTOMY ANAL DIVISION SPHINCTER SPX 02/03/12 Family History FAMILY HISTORY Problem Relation Age of Onset Colon Cancer Mother age 52, mets to liver Allergies Mother Stroke Father GI Father colitis, details unknown GI Brother colitis, details unknown; of esophageal vessel rupture Diabetes Other none Coronary Artery Disease Other none Allergies Sister Patient Allergies ALLERGIES Allergen Reactions Penicillins Swelling, Shortness of Breath Depakote [Divalproe* Other: See Comments pancreatitis Tetanus Vaccines An* Swelling Topamax [Topiramate] Other: See Comments Renal stones Current Medications Current Outpatient Medications on File Prior to Visit Medication Sig atorvastatin (LIPITOR) 10 mg tablet Take 1 tablet by mouth daily at bedtime. For cholesterol. omeprazole (PRILOSEC) 20 mg capsule Take 1 capsule by mouth once daily. propranolol ER (INDERAL LA) 80 mg 24 hr capsule Take 1 capsule by mouth once daily. smrjph-ufdljjri-xmlljtc (CREON) 36,000-114,000- 180,000 unit delayed release capsule Take 2 capsules by mouth three times daily with meals. hyoscyamine (LEVSIN) 0.125 mg tablet Take 1 tablet by mouth twice daily. promethazine (PHENERGAN) 12.5 mg tablet Take 1 tablet by mouth every 6 hours as ne (more content not included)... [facility] 05-14-2023 History of Presen t illness Narrative Chief Complaint Patient presents with: Physical HPI Destin Alexandra is a 57 year old male who presents here today for Physical. Office visit - Physical 05/14/2023 Patient with Hx of Chronic pancreatitis, elevated fasting blood sugar, GERD, hyperlipidemia, Migraines as well as those reviewed and addresed below and in ROS. Patient has been doing ok. Had a pancreatitis flare last week and needs a refill of his percocet he takes prn. Office visit - 6 month follow up 10/15/2022 Patient with Hx of Chronic pancreatitis, elevated fasting blood sugar, GERD, hyperlipidemia, Migraines as well as those reviewed and addresed below and in ROS. Patient has seen Dr. Pereira in [place] and has been diagnosed with Celiac disease and he suspects this may be causing his pancreatitis attacks. Past medical history, appointments, medications, allergies reviewed. Previous Medical History PAST MEDICAL HISTORY Diagnosis Date Allergic rhinitis 11/05/2005 Anal fissure 01/22/2012 Celiac disease 10/15/[address] Pereira Current use of proton pump inhibitor 11/10/2016 Mg check 10/2017 Current use of proton pump inhibitor 11/10/2016 Mg check 10/2017 Deviated nasal septum per CT: recurrent sinusitis Diaphragmatic hernia without mention of obstruction or gangrene 10/05/2007 Elevated fasting blood sugar 11/13/2017 Ex-smoker 03/27/2021 Started 14 and quit 5 years later. Smoked 1 pack per week Gastroesophageal reflux disease without esophagitis 11/08/2015 Normal EGD 2006, while on PPI Idiopathic chronic pancreatitis (HCC) 05/12/2017 Causes was not determined (but may been the Depakote or Topamax he was on and is a side affect) Migraine without aura and without status migrainosus, not intractable 11/08/2015 has had benefits from Midrin, inderal, Imitrex, Ellavil. Topamax discontinued because of increased kidney stones Mixed hyperlipidemia Myopathy, unspecified 10/85 myopathic illness characterized by proximal weakness, elevated CPK, normal NCS and EMG Nonspecific abnormal results of liver function study 09/29 09/29 Liver enzymes noted elevated on routine labwork. 10/30 liver US normal; 11/01 CT: poss. 4mm liver cyst; 09/29 hepatitis serology A,B,C negative Pancreatic cyst 05/23/2019 With Hx of pancreatitis will get US every 3 yrs. Next due 2020. Proteinuria 11/28/2016 Recheck 12/2016 was neg. Sphincter of Oddi dysfunction 2015 Syncope and collapse 01/01 referral to Kareem Isaacs, neuro: diagnosed as vasovagal. EEG normal. Also 2D echo Normal; carotid duplex: 0-29% stenosis. CT WWO contrast brain: negative except left maxillary sinusitis; deviated septum, retention cyst Urinary calculus, unspecified Renal stones, multiple CT confirmations: at least seven occurrences. Stones: calcium oxalate/ calcium phospate. 24 urine: calcium, creatinine, Na normal; citrate low, uric acid and oxalate high Vitiligo 11/08/2015 Previous Surgical History PAST SURGICAL HISTORY Procedure Laterality Date CHOLECYSTECTOMY 07/04/14 COLONOSCOPY 02/02/12 repeat 5 yrs COLONOSCOPY FLX DX W/COLLJ SPEC WHEN PFRMD 10/05/2007 Colonoscopy COLONOSCOPY FLX DX W/COLLJ SPEC WHEN PFRMD 12/25/2017 Colonoscopy - 5 year follow-up normal-family history- ESOPHAGOGASTRODUODENOSCOPY TRANSORAL DIAGNOSTIC 10/05/2007 EGD FECAL OCCULT BLOOD TEST 11/28/2016 negative PAST SURGICAL HISTORY OF 1985 muscle biopsy--myositis?; symptoms resolved at intake visit 06/04 SEPTOPLASTY/SUBMUCOUS RESECJ W/WO CARTILAGE GRF 2003 Septoplasty SPHINCTEROTOMY ANAL DIVISION SPHINCTER SPX 02/03/12 Family History FAMILY HISTORY Problem Relation Age of Onset Colon Cancer Mother age 52, mets to liver Allergies Mother Stroke Father GI Father colitis, details unknown GI Brother colitis, details unknown; of esophageal vessel rupture Diabetes Other none Coronary Artery Disease Other none Allergies Sister Patient Allergies ALLERGIES Allergen Reactions Penicillins Swelling, Shortness of Breath Depakote [Divalproe* Other: See Comments pancreatitis Tetanus Vaccines An* Swelling Topamax [Topiramate] Other: See Comments Renal stones Current Medications Current Outpatient Medications on File Prior to Visit Medication Sig atorvastatin (LIPITOR) 10 mg tablet Take 1 tablet by mouth daily at bedtime. For cholesterol. omeprazole (PRILOSEC) 20 mg capsule Take 1 capsule by mouth once daily. propranolol ER (INDERAL LA) 80 mg 24 hr capsule Take 1 capsule by mouth once daily. vkrbmw-ppnruuuu-azlhlvv (CREON) 36,000-114,000- 180,000 unit delayed release capsule Take 2 capsules by mouth three times daily with meals. hyoscyamine (LEVSIN) 0.125 mg tablet Take 1 tablet by mouth twice daily. promethazine (PHENERGAN) 12.5 mg tablet Take 1 tablet by mouth every 6 hours as needed. oxyCODONE IR (ROXICODONE) 5 mg immediate release tablet Take 1 tablet by mouth every 8 hours as needed for pain for up to 7 days. This is for recurrent pancreatitis outbreaks. SUMAtriptan Succinate 6 mg/0.5 mL crtg Inject 6 mg subcutaneously. As needed for migraine. May repeat after 1 hour if needed. No more than 2 doses in 24 hours. No current facility-administered medications on file prior to visit. Social History Social History Tobacco Use Smoking status: Former Packs/day: 1.00 Years: 10.00 Additional pack years: 0.00 Total pack years: 10.00 Types: Cigarettes Smokeless tobacco: Never Tobacco comments: quit 1993 Substance Use Topics Alcohol use: No Drug use: No Review of Symptoms REVIEW OF SYSTEMS GENERAL: No weight loss, malaise or fevers HEENT: Negative for frequent or significant headaches, No changes in hearing or vision, no nose bleeds or other nasal problems NECK: Negative for lumps, goiter, pain and significant neck swelling RESPIRATORY: Negative for cough, hemoptysis, wheezing, COPD, dyspnea or shortness of breath CARDIOVASCULAR: Negative for chest pain, leg swelling, hypertension, CHF or palpitations GI: No nausea, vomiting, or diarrhea and No heartburn or reflux symptoms. No blood : No history of dysuria, frequency or blood MUSCULOSKELETAL: Negative for new or changes in typical joint pain or swelling, back pain or muscle pain SKIN: Negative for lesions, rash, and itching PSYCH: Negative for sleep disturbance, mood disorder and recent psychosocial stressors HEMATOLOGY/LYMPHOLOGY: Negative for prolonged bleeding, bruising easily or swollen nodes ENDOCRINE: Negative for cold or heat intolerance, polyuria, polydipsia and goiter NEURO: No history of headaches, syncope, paralysis, seizures or tremors EXAM: BP 128/80 Pulse 68 Resp 16 Ht 174 cm (5' 8.5 ) Wt 77.6 kg (171 lb) SpO2 98% BMI 25.62 kg/m General Appearance: Well appearing, alert, in no acute distress, well-hydrated, well nourished.. Skin: Skin color, texture, turgor normal, no suspicious rashes or lesions. Head: Normocephalic, no masses, lesions, tenderness or abnormalities. Eyes: Anicteric sclera. Pupils are equally round and reactive to light. Extraocular movements are intact. . Ears: External ears, TM's normal, canals clear. Nose/Sinuses: Nares normal, septum midline, mucosa normal, no drainage or sinus tenderness. Oropharynx: Lips, mucosa, and tongue normal, teeth and gums normal, oropharynx normal. Neck: Supple, no adenopathy; thyroid symmetric, normal size, no bruits. Lungs: Lungs clear to auscultation. No wheezing, rhonchi, rales.. Heart: RRR without murmur, gallop, or rubs. No ectopy. Abdomen: Normal abdominal exam, Abdomen soft, non-tender. Bowel sounds normal. No masses, organomegaly. Extremities: No deformities, edema, skin discoloration, clubbing or cyanosis. Good capillary refill. . Musculoskeletal: No joint swelling, deformity, or tenderness. Peripheral Pulses: Normal. Neurologic: Gait normal. Reflexes normal and symmetric. Sensation to light touch and crainal nerves 2-12 intact.. Genitalia: Normal, Penis normal. No urethral discharge. Scrotum normal to palpation. No hernia.. Rectal: Normal exam. Health Maintenance List COLORECTAL CANCER SCREENING due on 12/25/2022 COVID-19 VACCINE(4 - Moderna series) due on 10/15/2023 DIABETES SCREEN due on 05/07/2026 LIPID SCREEN due on 05/07/2028 PROSTATE CANCER SCREENING DISCUSSION due on 05/07/2028 DEPRESSION ASSESSMENT Completed SHINGRIX VACCINE Completed DTAP,TDAP,TD Discontinued INFLUENZA Discontinued HEPATITIS C SCREENING Discontinued HIV SCREENING Discontinued Data reviewed Component Latest Ref Rng & Units 10/15/2022 05/07/2023 WBC 3.70 - 11.00 k/uL 7.22 RBC 4.20 - 6.00 m/uL 5.55 Hemoglobin 13.0 - 17.0 g/dL 16.1 Hematocrit 39.0 - 51.0 % 49.4 MCV 80.0 - 100.0 fL 89.0 MCH 26.0 - 34.0 pg 29.0 MCHC 30.5 - 36.0 g/dL 32.6 RDW-CV 11.5 - 15.0 % 13.9 Platelet Count 150 - 400 k/uL 229 MPV 9.0 - 12.7 fL 11.4 Neut% % 58.0 Abs Neut (ANC) 1.45 - 7.50 k/uL 4.19 Lymph% % 26.6 Abs Lymph 1.00 - 4.00 k/uL 1.92 [place]% % 8.9 Abs [place] <0.87 k/uL 0.64 Eosin% % 6.0 Abs Eosin <0.46 k/uL 0.43 Baso% % 0.4 Abs Baso <0.11 k/uL 0.03 Immature Gran % % 0.1 IMMATURE GRANS (ABS) <0.10 k/uL <0.03 NRBC /100 WBC 0.0 Absolute nRBC <0.01 k/uL <0.01 DTYPE Auto Protein, Total 6.3 - 8.0 g/dL 6.9 7.3 Albumin 3.9 - 4.9 g/dL 4.4 4.2 Calcium 8.5 - 10.2 mg/dL 9.3 9.3 Bilirubin, Total 0.2 - 1.3 mg/dL 0.3 0.5 Alkaline Phosphatase 38 - 113 U/L 86 79 AST 14 - 40 U/L 28 33 ALT 10 - 54 U/L 40 34 Glucose 74 - 99 mg/dL 102 (H) 92 BUN 9 - 24 mg/dL 15 15 Creatinine 0.73 - 1.22 mg/dL 0.91 1.11 Sodium 136 - 144 mmol/L 140 141 Potassium 3.7 - 5.1 mmol/L 4.4 4.3 Chloride 97 - 105 mmol/L 105 108 (H) CO2 22 - 30 mmol/L 25 22 Anion Gap 9 - 18 mmol/L 10 11 eGFR >=60 mL/min/1.73m 97 76 Color Yellow Light Yellow Clarity Clear Clear Glucose, Urine Trace, Negative Negative Bilirubin, Urine Negative Negative Ketones, Urine Trace, Negative Negative Specific [place], Ur 1.005 - 1.030 1.014 Hemoglobin/Blood,Ur Negative, Trace Negative pH, Urine 5.0 - 8.0 6.0 Protein, Urine Trace, Negative Negative Urobilinogen Negative Negative Nitrites Negative Negative Leukest Negative, 25 Jose Martin/uL Negative WBC, Urine 0-5 /HPF 0-5 /HPF RBC, Urine 0-3 /HPF 0-3 /HPF Total Cholesterol, Nonfasting <200 mg/dL 126 146 Triglycerides, Nonfasting <150 mg/dL 166 (H) 167 (H) HDL Cholesterol, Nonfasting >39 mg/dL 33 (L) 34 (L) LDL Cholesterol, Nonfasting <100 mg/dL 60 79 Non HDL Cholesterol, Nonfasting <130 mg/dL 93 112 VLDL Cholesterol, Nonfasting <30 mg/dL 33 (H) 33 (H) Total Chol/HDL Ratio, Nonfasting <5.10 mg/dL 3.82 4.29 LDL/HDL Ratio, Nonfasting <2.54 mg/dL 1.82 2.32 Hemoglobin A1C 4.3 - 5.6 % 6.3 (H) 6.2 (H) Estimated Average Glucose mg/dL 134 131 Vitamin B12 232 - 1,245 pg/mL 921 PSA <2.60 ng/mL 2.37 Magnesium 1.7 - 2.3 mg/dL 2.4 (H) A/P ASSESSMENT/PLAN: 1. Well adult exam - ICD9: V70.0, ICD10: Z00.00 (primary diagnosis) - Counseled on healthy diet and regular exercise - Colorectal cancer screening recommended - agrees to Colonoscopy - Follow up for annual exam in one year 2. Elevated fasting blood sugar - ICD9: 790.21, ICD10: R73.01 - improved. Patient to continue work on diet. 3. Mixed hyperlipidemia - ICD9: 272.2, ICD10: E78.2 - Controlled - Continue current medications - Counseled on healthy diet and regular exercise 4. Gastroesophageal reflux disease without esophagitis - ICD9: 530.81, ICD10: K21.9 - Continue treatment with Prilosec 20 mg QD 5. Migraine without aura and without status migrainosus, not intractable - ICD9: 346.10, ICD10: G43.009 - stable no changes. 6. Idiopathic chronic pancreatitis (HCC) - ICD9: 577.1, ICD10: K86.1 Cont prn - OXYCODONE 5 MG TABLET - cont f/u with with gastro. 7. Celiac disease - ICD9: 579.0, ICD10: K90.0 - management per gastro 8. Pancreatic cyst - ICD9: 577.2, ICD10: K86.2 - management per gastro. Requested Prescriptions Signed Prescriptions Disp Refills svreiw-issuysjn-kscpzsx (CREON) 36,000-114,000- 180,000 unit delayed release capsule 810 capsule 3 Sig: Take 3 capsules by mouth three times daily with meals. oxyCODONE IR (ROXICODONE) 5 mg immediate release tablet 21 tablet 0 Sig: Take 1 tablet by mouth every 8 hours as needed for pain for up to 7 days. This is for recurrent pancreatitis outbreaks. F/u 6 months routine check CMP, Lipid and A1c Shama Santiago MD documented in this encounter [facility] 05-12-2023 Note HNO ID: [id number] Author: Isaac Mora LPN Service: ? Author Type: ? Type: Progress Notes Filed: 05/13/2023 12:18 AM Note Text: Scan on 05/11/2023 2:35 PM by ProviderMichelle PA-C: Miscellaneous Lab [facility] 05-12-2023 History of Presen t illness Narrative Scan on 05/11/2023 2:35 PM by ProviderMichelle PA-C: Miscellaneous Lab documented in this encounter [facility] 04-27-2023 Miscellaneous Notes Patient has been identified by name and date of : Yes, Provider Dr Mullins 04/27/23 Time 9:58 am Pharmacy phones for refill(s): Requested Prescriptions Pending Prescriptions Disp Refills atorvastatin (LIPITOR) 10 mg tablet 90 tablet 1 Sig: Take 1 tablet by mouth daily at bedtime. For cholesterol. Date of last office visit in primary care: 10/15/22 next apt 05/14/23 Last 2 Encounter Wt Readings: Date: Wt: 10/15/2022 78.9 kg (174 lb) 04/14/2022 78.5 kg (173 lb) Previous labs/tests for medication: Cholesterol: HDL Cholesterol (mg/dL) Date Value 05/04/2018 30 HDL Cholesterol, Nonfasting (mg/dL) Date Value 10/15/2022 33 10/12/2021 33 LDL Cholesterol (mg/dL) Date Value 05/04/2018 108 LDL Cholesterol, Nonfasting (mg/dL) Date Value 10/15/2022 60 10/12/2021 73 ALT (U/L) Date Value 10/15/2022 40 04/03/2021 38 Non HDL Cholesterol, Nonfasting (mg/dL) Date Value 10/15/2022 93 10/12/2021 103 Thank you. Estefani DANIELLE documented in this encounter [facility] 01-22-2023 Note HNO ID: [id number] Author: Indigo Hitchcock MA Service: ? Author Type: Access Consultant Type: Progress Notes Filed: 01/22/2023 10:23 PM Note Text: Scan on 01/21/2023 3:39 PM by External Provider, PASherieC: Miscellaneous Lab Indigo Hitchcock MA [facility] 01-19-2023 Note HNO ID: [id number] Author: Indigo Hitchcock MA Service: ? Author Type: Access Consultant Type: Progress Notes Filed: 01/19/2023 1:50 PM Note Text: Scan on 01/12/2023 4:37 PM by External Provider: Hematology Scan on 01/12/2023 5:05 PM by External Provider: Hematology Scan on 01/14/2023 3:36 PM by External Provider: Miscellaneous Lab Indigo Hitchcock MA [facility] 01-19-2023 History of Presen t illness Narrative Scan on 01/12/2023 4:37 PM by External Provider: Hematology Scan on 01/12/2023 5:05 PM by External Provider: Hematology Scan on 01/14/2023 3:36 PM by External Provider: Miscellaneous Lab Indigo Hitchcock MA documented in this encounter [facility] 01-14-2023 Miscellaneous Notes The following approved medication requests have been transmitted electronically. Requested Prescriptions Signed Prescriptions Disp Refills omeprazole (PRILOSEC) 20 mg capsule 90 capsule 1 Sig: Take 1 capsule by mouth once daily. Authorizing Provider: SHAMA SANTIAGO propranolol ER (INDERAL LA) 80 mg 24 hr capsule 90 capsule 1 Sig: Take 1 capsule by mouth once daily. Authorizing Provider: SHAMA SANTIAGO MD Patient has been identified by name and date of : Yes Requested Prescriptions Pending Prescriptions Disp Refills omeprazole (PRILOSEC) 20 mg capsule 90 capsule 1 Sig: Take 1 capsule by mouth once daily. propranolol ER (INDERAL LA) 80 mg 24 hr capsule 90 capsule 1 Sig: Take 1 capsule by mouth once daily. SOURAV-10/15/22 Labs-10/15/22 NOV-04/20/23 med filled 07/22/22 RX INSTRUCTIONS: Patient aware RX escripted to mail away pharmacy. No need to notify patient. Beth Walters documented in this encounter [facility] 10-17-2022 Miscellaneous Notes Patient notified and voiced understanding. Indigo Hitchcock MA Let patient know electrolytes. Liver functions and kidney functions were ok. A1c higher at 6.3%. diabetes is 6.5% and higher. Advise working on reduced carbs, sugars, starches and sweets in diet. Lipid panel showed Trigs only slightly elevated at 166 (goal<150 and were 234), HDL is low at 33 Goal>40) and LDL is very good at 60. No changes needed in medication but increase exercise will help bring the HDL up and reduced fat in diet will help to further reduce the Trigs. documented in this encounter [facility] 10-15-2022 Note HNO ID: [id number] Author: Shama Santiago MD Service: ? Author Type: Physician Type: Progress Notes Filed: 10/16/2022 9:12 AM Note Text: Chief Complaint Patient presents with: F/U 6 months HPI Destin Alexandra is a 57 year old male who presents here today for 6 month follow up. Patient with Hx of Chronic pancreatitis, elevated fasting blood sugar, GERD, hyperlipidemia, Migraines as well as those reviewed and addresed below and in ROS. Patient has seen Dr. Pereira in Gastro and has been diagnosed with Celiac disease and he suspects this may be causing his pancreatitis attacks. Past medical history, appointments, medications, allergies reviewed. Previous Medical History PAST MEDICAL HISTORY Diagnosis Date Allergic rhinitis 11/05/2005 Anal fissure 01/22/2012 Current use of proton pump inhibitor 11/10/2016 Mg check 10/2017 Current use of proton pump inhibitor 11/10/2016 Mg check 10/2017 Deviated nasal septum per CT: recurrent sinusitis Diaphragmatic hernia without mention of obstruction or gangrene 10/05/2007 Elevated fasting blood sugar 11/13/2017 Ex-smoker 03/27/2021 Started 14 and quit 5 years later. Smoked 1 pack per week Gastroesophageal reflux disease without esophagitis 11/08/2015 Normal EGD 2006, while on PPI Idiopathic chronic pancreatitis (HCC) 05/12/2017 Causes was not determined (but may been the Depakote or Topamax he was on and is a side affect) Migraine without aura and without status migrainosus, not intractable 11/08/2015 has had benefits from Midrin, inderal, Imitrex, Ellavil. 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 10/30 liver US normal; 11/01 CT: poss. 4mm liver cyst; 09/29 hepatitis serology A,B,C negative Pancreatic cyst 05/23/2019 With Hx of pancreatitis will get US every 3 yrs. Next due 2020. Proteinuria 11/28/2016 Recheck 12/2016 was neg. Sphincter of Oddi dysfunction 2015 Syncope and collapse 01/01 referral to Kareem Isaacs, neuro: diagnosed as vasovagal. EEG normal. Also 2D echo Normal; carotid duplex: 0-29% stenosis. CT WWO contrast brain: negative except left maxillary sinusitis; deviated septum, retention cyst Urinary calculus, unspecified Renal stones, multiple CT confirmations: at least seven occurrences. Stones: calcium oxalate/ calcium phospate. 24 urine: calcium, creatinine, Na normal; citrate low, uric acid and oxalate high Vitiligo 11/08/2015 Previous Surgical History PAST SURGICAL HISTORY Procedure Laterality Date CHOLECYSTECTOMY 07/04/14 COLONOSCOPY 02/02/12 repeat 5 yrs COLONOSCOPY FLX DX W/COLLJ SPEC WHEN PFRMD 10/05/2007 Colonoscopy COLONOSCOPY FLX DX W/COLLJ SPEC WHEN PFRMD 12/25/2017 Colonoscopy - 5 year follow-up normal-family history- ESOPHAGOGASTRODUODENOSCOPY TRANSORAL DIAGNOSTIC 10/05/2007 EGD FECAL OCCULT BLOOD TEST 11/28/2016 negative PAST SURGICAL HISTORY OF 1985 muscle biopsy--myositis?; symptoms resolved at intake visit 06/04 SEPTOPLASTY/SUBMUCOUS RESECJ W/WO CARTILAGE GRF 2003 Septoplasty SPHINCTEROTOMY ANAL DIVISION SPHINCTER SPX 02/03/12 Family History FAMILY HISTORY Problem Relation Age of Onset Colon Cancer Mother age 52, mets to liver Allergies Mother Stroke Father GI Father colitis, details unknown GI Brother colitis, details unknown; of esophageal vessel rupture Diabetes Other none Coronary Artery Disease Other none Allergies Sister Patient Allergies ALLERGIES Allergen Reactions Penicillins Swelling, Shortness of Breath Depakote [Divalproe* Other: See Comments pancreatitis Tetanus Vaccines An* Swelling Topamax [Topiramate] Other: See Comments Renal stones Current Medications Current Outpatient Medications on File Prior to Visit Medication Sig omeprazole (PRILOSEC) 20 mg capsule Take 1 capsule by mouth once daily. propranolol ER (INDERAL LA) 80 mg 24 hr capsule Take 1 capsule by mouth once daily. atorvastatin (LIPITOR) 10 mg tablet Take 1 tablet by mouth daily at bedtime. For cholesterol. egczjv-qsvrjspd-pjlmoub (CREON) 36,000-114,000- 180,000 unit delayed release capsule Take 2 capsules by mouth three times daily with meals. hyoscyamine (LEVSIN) 0.125 mg tablet Take 1 tablet by mouth twice daily. oxyCODONE IR (ROXICODONE) 5 mg immediate release tablet Take 1 tablet by mouth every 8 hours as needed for pain for up to 7 days. This is for recurrent pancreatitis outbreaks. SUMAtriptan Succinate 6 mg/0.5 mL crtg Inject 6 mg subcutaneously. As needed for migraine. May repeat after 1 hour if needed. No more than 2 doses in 24 hours. promethazine (PHENERGAN) 12.5 mg tablet Take 1 tablet by mouth every 6 hours as needed. No current facility-administered medicatio (more content not included)... [facility] 10-15-2022 Instructions Shama Santiago MD - 10/15/2022 2:51 PM EST Please get labs and urine test done on or after 04/03/2023 prior to your next visit. documented in this encounter [facility] 10-15-2022 History of Presen t illness Narrative Chief Complaint Patient presents with: F/U 6 months HPI Destin Alexandra is a 57 year old male who presents here today for 6 month follow up. Patient with Hx of Chronic pancreatitis, elevated fasting blood sugar, GERD, hyperlipidemia, Migraines as well as those reviewed and addresed below and in ROS. Patient has seen Dr. Pereira in [place]astro and has been diagnosed with Celiac disease and he suspects this may be causing his pancreatitis attacks. Past medical history, appointments, medications, allergies reviewed. Previous Medical History PAST MEDICAL HISTORY Diagnosis Date Allergic rhinitis 11/05/2005 Anal fissure 01/22/2012 Current use of proton pump inhibitor 11/10/2016 Mg check 10/2017 Current use of proton pump inhibitor 11/10/2016 Mg check 10/2017 Deviated nasal septum per CT: recurrent sinusitis Diaphragmatic hernia without mention of obstruction or gangrene 10/05/2007 Elevated fasting blood sugar 11/13/2017 Ex-smoker 03/27/2021 Started 14 and quit 5 years later. Smoked 1 pack per week Gastroesophageal reflux disease without esophagitis 11/08/2015 Normal EGD 2006, while on PPI Idiopathic chronic pancreatitis (HCC) 05/12/2017 Causes was not determined (but may been the Depakote or Topamax he was on and is a side affect) Migraine without aura and without status migrainosus, not intractable 11/08/2015 has had benefits from Midrin, inderal, Imitrex, Ellavil. 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 10/30 liver US normal; 11/01 CT: poss. 4mm liver cyst; 09/29 hepatitis serology A,B,C negative Pancreatic cyst 05/23/2019 With Hx of pancreatitis will get US every 3 yrs. Next due 2020. Proteinuria 11/28/2016 Recheck 12/2016 was neg. Sphincter of Oddi dysfunction 2015 Syncope and collapse 01/01 referral to Kareem Isaacs, neuro: diagnosed as vasovagal. EEG normal. Also 2D echo Normal; carotid duplex: 0-29% stenosis. CT WWO contrast brain: negative except left maxillary sinusitis; deviated septum, retention cyst Urinary calculus, unspecified Renal stones, multiple CT confirmations: at least seven occurrences. Stones: calcium oxalate/ calcium phospate. 24 urine: calcium, creatinine, Na normal; citrate low, uric acid and oxalate high Vitiligo 11/08/2015 Previous Surgical History PAST SURGICAL HISTORY Procedure Laterality Date CHOLECYSTECTOMY 07/04/14 COLONOSCOPY 02/02/12 repeat 5 yrs COLONOSCOPY FLX DX W/COLLJ SPEC WHEN PFRMD 10/05/2007 Colonoscopy COLONOSCOPY FLX DX W/COLLJ SPEC WHEN PFRMD 12/25/2017 Colonoscopy - 5 year follow-up normal-family history- ESOPHAGOGASTRODUODENOSCOPY TRANSORAL DIAGNOSTIC 10/05/2007 EGD FECAL OCCULT BLOOD TEST 11/28/2016 negative PAST SURGICAL HISTORY OF 1984 muscle biopsy--myositis?; symptoms resolved at intake visit 06/04 SEPTOPLASTY/SUBMUCOUS RESECJ W/WO CARTILAGE GRF 2003 Septoplasty SPHINCTEROTOMY ANAL DIVISION SPHINCTER SPX 02/03/12 Family History FAMILY HISTORY Problem Relation Age of Onset Colon Cancer Mother age 52, mets to liver Allergies Mother Stroke Father GI Father colitis, details unknown GI Brother colitis, details unknown; of esophageal vessel rupture Diabetes Other none Coronary Artery Disease Other none Allergies Sister Patient Allergies ALLERGIES Allergen Reactions Penicillins Swelling, Shortness of Breath Depakote [Divalproe* Other: See Comments pancreatitis Tetanus Vaccines An* Swelling Topamax [Topiramate] Other: See Comments Renal stones Current Medications Current Outpatient Medications on File Prior to Visit Medication Sig omeprazole (PRILOSEC) 20 mg capsule Take 1 capsule by mouth once daily. propranolol ER (INDERAL LA) 80 mg 24 hr capsule Take 1 capsule by mouth once daily. atorvastatin (LIPITOR) 10 mg tablet Take 1 tablet by mouth daily at bedtime. For cholesterol. lcavxu-jahgzaaz-ibugivp (CREON) 36,000-114,000- 180,000 unit delayed release capsule Take 2 capsules by mouth three times daily with meals. hyoscyamine (LEVSIN) 0.125 mg tablet Take 1 tablet by mouth twice daily. oxyCODONE IR (ROXICODONE) 5 mg immediate release tablet Take 1 tablet by mouth every 8 hours as needed for pain for up to 7 days. This is for recurrent pancreatitis outbreaks. SUMAtriptan Succinate 6 mg/0.5 mL crtg Inject 6 mg subcutaneously. As needed for migraine. May repeat after 1 hour if needed. No more than 2 doses in 24 hours. promethazine (PHENERGAN) 12.5 mg tablet Take 1 tablet by mouth every 6 hours as needed. No current facility-administered medications on file prior to visit. Social History Social History Tobacco Use Smoking status: Former Packs/day: 1.00 Years: 10.00 Pack years: 10.00 Types: Cigarettes Smokeless tobacco: Never Tobacco comments: quit 1993 Substance Use Topics Alcohol use: No Drug use: No Review of Symptoms REVIEW OF SYSTEMS GENERAL: No weight loss, malaise or fevers NECK: Negative for lumps, goiter, pain and significant neck swelling RESPIRATORY: Negative for cough, hemoptysis, wheezing, COPD, dyspnea or shortness of breath CARDIOVASCULAR: Negative for chest pain, leg swelling, hypertension, CHF or palpitations GI: No nausea, vomiting, or diarrhea. Has had two pancreatic bouts since last being seen. ENDOCRINE: Negative for cold or heat intolerance, polyuria, polydipsia and goiter NEURO: No history of headaches, syncope, paralysis, seizures or tremors EXAM: BP 130/90 (BP Site: Left Arm, BP Position: Sitting, BP Cuff Size: Regular Adult) Pulse 60 Resp 16 Wt 78.9 kg (174 lb) BMI 26.26 kg/m BP 130/80 Pulse 60 Resp 16 Wt 78.9 kg (174 lb) BMI 26.26 kg/m Last 5 Encounter Wt Readings: Date: Wt: 10/15/2022 78.9 kg (174 lb) 04/14/2022 78.5 kg (173 lb) 10/12/2021 78.9 kg (174 lb) 03/27/2021 77.6 kg (171 lb) 09/12/2020 78 kg (172 lb) General Appearance: Well appearing, alert, in no acute distress, well-hydrated, well nourished.. Neck: Supple, no adenopathy; thyroid symmetric, normal size, no bruits. Lungs: Lungs clear to auscultation. No wheezing, rhonchi, rales.. Heart: RRR without murmur, gallop, or rubs. No ectopy. Abdomen: Normal abdominal exam, Abdomen soft, non-tender. Bowel sounds normal. No masses, organomegaly. Extremities: No deformities, edema, skin discoloration, Good capillary refill. . Peripheral Pulses: Normal. Health Maintenance List COVID-19 VACCINE(4 - Booster for Moderna series) due on 02/10/2022 DEPRESSION ASSESSMENT Never done COLORECTAL CANCER SCREENING due on 12/25/2022 DIABETES SCREEN due on 04/14/2025 LIPID SCREEN due on 04/14/2027 PROSTATE CANCER SCREENING DISCUSSION due on 04/14/2027 SHINGRIX VACCINE Completed DTAP,TDAP,TD Discontinued INFLUENZA Discontinued HEPATITIS C SCREENING Discontinued HIV SCREENING Discontinued Data reviewed Component Latest Ref Rng & Units 04/14/2022 WBC 3.70 - 11.00 k/uL 8.42 RBC 4.20 - 6.00 m/uL 5.74 Hemoglobin 13.0 - 17.0 g/dL 16.7 Hematocrit 39.0 - 51.0 % 52.5 (H) MCV 80.0 - 100.0 fL 91.5 MCH 26.0 - 34.0 pg 29.1 MCHC 30.5 - 36.0 g/dL 31.8 RDW-CV 11.5 - 15.0 % 13.6 Platelet Count 150 - 400 k/uL 252 MPV 9.0 - 12.7 fL 11.6 Neut% % 57.3 Abs Neut (ANC) 1.45 - 7.50 k/uL 4.83 Lymph% % 29.0 Abs Lymph 1.00 - 4.00 k/uL 2.44 [place]% % 8.6 Abs [place] <0.87 k/uL 0.72 Eosin% % 4.3 Abs Eosin <0.46 k/uL 0.36 Baso% % 0.6 Abs Baso <0.11 k/uL 0.05 Immature Gran % % 0.2 IMMATURE GRANS (ABS) <0.10 k/uL <0.03 NRBC /100 WBC 0.0 Absolute nRBC <0.01 k/uL <0.01 DTYPE Auto Protein, Total 6.3 - 8.0 g/dL 7.0 Albumin 3.9 - 4.9 g/dL 4.3 Calcium 8.5 - 10.2 mg/dL 9.4 Bilirubin, Total 0.2 - 1.3 mg/dL 0.4 Alkaline Phosphatase 38 - 113 U/L 83 AST 14 - 40 U/L 28 ALT 10 - 54 U/L 35 Glucose 74 - 99 mg/dL 103 (H) BUN 9 - 24 mg/dL 12 Creatinine 0.73 - 1.22 mg/dL 0.91 Sodium 136 - 144 mmol/L 139 Potassium 3.7 - 5.1 mmol/L 4.7 Chloride 97 - 105 mmol/L 105 CO2 22 - 30 mmol/L 22 Anion Gap 9 - 18 mmol/L 12 eGFR >=60 mL/min/1.73m 98 Color Yellow Light Yellow Clarity Clear Clear Glucose, Urine Negative Negative Bilirubin, Urine Negative Negative Ketones, Urine Negative Negative Specific [place], Ur 1.005 - 1.030 1.008 Hemoglobin/Blood,Ur Negative 1+ (A) pH, Urine 5.0 - 8.0 6.0 Protein, Urine Negative Negative Urobilinogen Negative Negative Nitrites Negative Negative Leukest Negative Negative WBC, Urine 0-5 /HPF 0-5 /HPF RBC, Urine 0-3 /HPF 0-3 /HPF Total Cholesterol, Nonfasting <200 mg/dL 140 Triglycerides, Nonfasting <150 mg/dL 234 (H) HDL Cholesterol, Nonfasting >39 mg/dL 35 (L) LDL Cholesterol, Nonfasting <100 mg/dL 58 Non HDL Cholesterol, Nonfasting <130 mg/dL 105 VLDL Cholesterol, Nonfasting <30 mg/dL 47 (H) Total Chol/HDL Ratio, Nonfasting <5.10 mg/dL 4.00 LDL/HDL Ratio, Nonfasting <2.54 mg/dL 1.66 Hemoglobin A1C 4.3 - 5.6 % 6.1 (H) Estimated Average Glucose mg/dL 128 Vitamin B12 232-1,245 pg/mL 724 PSA <2.60 ng/mL 2.08 Magnesium 1.7 - 2.3 mg/dL 2.3 A/P ASSESSMENT/PLAN: 1. Mixed hyperlipidemia - ICD9: 272.2, ICD10: E78.2 (primary diagnosis) - to be determined upon return of lab results - Encouraged following a low fat, low cholesterol diet. - Discussed the benefits of regular aerobic exercise and weight loss. - Encouraged following a low carbohydrate, healthy oil intake diet. - Continue current therapy. 2. Elevated fasting blood sugar - ICD9: 790.21, ICD10: R73.01 Await A1c to see if life changes helping. 3. Idiopathic chronic pancreatitis (HCC) - ICD9: 577.1, ICD10: K86.1 Cont prn - OXYCODONE 5 MG TABLET - cont enzyme replacement. 4. Gastroesophageal reflux disease without esophagitis - ICD9: 530.81, ICD10: K21.9 - Continue treatment with Prilosec 20 mg QD 5. Migraine without aura and without status migrainosus, not intractable - ICD9: 346.10, ICD10: G43.009 - stable clinically 6. Celiac disease - ICD9: 579.0, ICD10: K90.0 - seeing Gastro: Friend Requested Prescriptions Signed Prescriptions Disp Refills atorvastatin (LIPITOR) 10 mg tablet 90 tablet 1 Sig: Take 1 tablet by mouth daily at bedtime. For cholesterol. xjusjk-ysqlrkgg-gmarhhr (CREON) 36,000-114,000- 180,000 unit delayed release capsule 540 capsule 1 Sig: Take 2 capsules by mouth three times daily with meals. hyoscyamine (LEVSIN) 0.125 mg tablet 180 tablet 1 Sig: Take 1 tablet by mouth twice daily. promethazine (PHENERGAN) 12.5 mg tablet 90 tablet 0 Sig: Take 1 tablet by mouth every 6 hours as needed. oxyCODONE IR (ROXICODONE) 5 mg immediate release tablet 21 tablet 0 Sig: Take 1 tablet by mouth every 8 hours as needed for pain for up to 7 days. This is for recurrent pancreatitis outbreaks. F/u 6 months WAE check CMP, lipid, UA, A1c, B12, Mg, PSA prior. Shama Santiago MD documented in this encounter [facility] 07-22-2022 Miscellaneous Notes Last refills 01/29/22 Qty: 90 with 1 refill SOURAV 04/14/22 NOV 10/15/22 Isaac Mora LPN Patient has been identified by name and date of : Yes Requested Prescriptions Pending Prescriptions Disp Refills omeprazole (PRILOSEC) 20 mg capsule 90 capsule 1 Sig: Take 1 capsule by mouth once daily. propranolol ER (INDERAL LA) 80 mg 24 hr capsule 90 capsule 1 Sig: Take 1 capsule by mouth once daily. RX INSTRUCTIONS: Patient aware RX will be sent to pharmacy. No need to notify patient. Marisabel Estes Pss documented in this encounter [facility] 04-14-2022 Instructions Shama Santiago MD - 04/14/2022 2:36 PM EDT Please get labs and urine test done on or after 10/03/2022 prior to your next visit. documented in this encounter [facility] 04-14-2022 History of Presen t illness Narrative Chief Complaint Patient presents with: Physical HPI Destin Alexandra is a 56 year old male who presents here today for Physical. Patient with Hx of Chronic pancreatitis, elevated fasting blood sugar, GERD, hyperlipidemia, Migraines as well as those reviewed and addresed below and in ROS. Patient has noted with the Creon increase a year ago he may not have as frequent pancreatitis episodes but they seem to last longer. Past medical history, appointments, medications, allergies reviewed. Previous Medical History PAST MEDICAL HISTORY Diagnosis Date Allergic rhinitis 11/05/2005 Anal fissure 01/22/2012 Current use of proton pump inhibitor 11/10/2016 Mg check 10/2017 Current use of proton pump inhibitor 11/10/2016 Mg check 10/2017 Deviated nasal septum per CT: recurrent sinusitis Diaphragmatic hernia without mention of obstruction or gangrene 10/05/2007 Elevated fasting blood sugar 11/13/2017 Ex-smoker 03/27/2021 Started 14 and quit 5 years later. Smoked 1 pack per week Gastroesophageal reflux disease without esophagitis 11/08/2015 Normal EGD 2006, while on PPI Idiopathic chronic pancreatitis (HCC) 05/12/2017 Causes was not determined (but may been the Depakote or Topamax he was on and is a side affect) Migraine without aura and without status migrainosus, not intractable 11/08/2015 has had benefits from Midrin, inderal, Imitrex, Ellavil. 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 10/30 liver US normal; 11/01 CT: poss. 4mm liver cyst; 09/29 hepatitis serology A,B,C negative Pancreatic cyst 05/23/2019 With Hx of pancreatitis will get US every 3 yrs. Next due 2020. Proteinuria 11/28/2016 Recheck 12/2016 was neg. Sphincter of Oddi dysfunction 2015 Syncope and collapse 01/01 referral to Kareem Isaacs, neuro: diagnosed as vasovagal. EEG normal. Also 2D echo Normal; carotid duplex: 0-29% stenosis. CT WWO contrast brain: negative except left maxillary sinusitis; deviated septum, retention cyst Urinary calculus, unspecified Renal stones, multiple CT confirmations: at least seven occurrences. Stones: calcium oxalate/ calcium phospate. 24 urine: calcium, creatinine, Na normal; citrate low, uric acid and oxalate high Vitiligo 11/08/2015 Previous Surgical History PAST SURGICAL HISTORY Procedure Laterality Date CHOLECYSTECTOMY 07/04/14 COLONOSCOPY 02/02/12 repeat 5 yrs COLONOSCOPY FLX DX W/COLLJ SPEC WHEN PFRMD 10/05/2007 Colonoscopy COLONOSCOPY FLX DX W/COLLJ SPEC WHEN PFRMD 12/25/2017 Colonoscopy - 5 year follow-up normal-family history- ESOPHAGOGASTRODUODENOSCOPY TRANSORAL DIAGNOSTIC 10/05/2007 EGD FECAL OCCULT BLOOD TEST 11/28/2016 negative PAST SURGICAL HISTORY OF 1985 muscle biopsy--myositis?; symptoms resolved at intake visit 06/04 SEPTOPLASTY/SUBMUCOUS RESECJ W/WO CARTILAGE GRF 2003 Septoplasty SPHINCTEROTOMY ANAL DIVISION SPHINCTER SPX 02/03/12 Family History FAMILY HISTORY Problem Relation Age of Onset Colon Cancer Mother age 52, mets to liver Allergies Mother Stroke Father GI Father colitis, details unknown GI Brother colitis, details unknown; of esophageal vessel rupture Diabetes Other none Coronary Artery Disease Other none Allergies Sister Patient Allergies ALLERGIES Allergen Reactions Penicillins Swelling, Shortness of Breath Depakote [Divalproe* Other: See Comments pancreatitis Tetanus Vaccines An* Swelling Topamax [Topiramate] Other: See Comments Renal stones Current Medications Current Outpatient Medications on File Prior to Visit Medication Sig omeprazole (PRILOSEC) 20 mg capsule Take 1 capsule by mouth once daily. propranolol ER (INDERAL LA) 80 mg 24 hr capsule Take 1 capsule by mouth once daily. atorvastatin (LIPITOR) 10 mg tablet Take 1 tablet by mouth daily at bedtime. For cholesterol. wqxxqq-eqyhurlb-agqnxog (CREON) 36,000-114,000- 180,000 unit delayed release capsule Take 2 capsules by mouth three times daily with meals. hyoscyamine (LEVSIN) 0.125 mg tablet Take 1 tablet by mouth twice daily. SUMAtriptan Succinate 6 mg/0.5 mL crtg Inject 6 mg subcutaneously. As needed for migraine. May repeat after 1 hour if needed. No more than 2 doses in 24 hours. promethazine (PHENERGAN) 12.5 mg tablet Take 1 tablet by mouth every 6 hours as needed. oxyCODONE IR (ROXICODONE) 5 mg immediate release tablet Take 1 tablet by mouth every 6 hours as needed for pain for up to 180 days. No current facility-administered medications on file prior to visit. Social History Social History Tobacco Use Smoking status: Former Smoker Packs/day: 1.00 Years: 10.00 Pack years: 10.00 Types: Cigarettes Smokeless tobacco: Never Used Tobacco comment: quit 1993 Substance Use Topics Alcohol use: No Drug use: No Review of Symptoms REVIEW OF SYSTEMS GENERAL: No weight loss, malaise or fevers HEENT: Negative for frequent or significant headaches, No changes in hearing or vision, no nose bleeds or other nasal problems NECK: Negative for lumps, goiter, pain and significant neck swelling RESPIRATORY: Negative for cough, hemoptysis, wheezing, COPD, dyspnea or shortness of breath CARDIOVASCULAR: Negative for chest pain, leg swelling, hypertension, CHF or palpitations GI: No nausea, vomiting, or diarrhea, No heartburn or reflux symptoms, See HPI and no blood : No history of dysuria, blood MUSCULOSKELETAL: Negative for joint pain or swelling, back pain or muscle pain SKIN: Negative for lesions, rash, and itching PSYCH: Negative for sleep disturbance, mood disorder and recent psychosocial stressors HEMATOLOGY/LYMPHOLOGY: Negative for prolonged bleeding, bruising easily or swollen nodes ENDOCRINE: Negative for cold or heat intolerance, polyuria, polydipsia and goiter NEURO: No history of headaches, syncope, paralysis, seizures or tremors EXAM: BP 120/86 (BP Site: Left Arm, BP Position: Sitting, BP Cuff Size: Regular Adult) Pulse 64 Resp 14 Ht 173.4 cm (5' 8.25 ) Wt 78.5 kg (173 lb) BMI 26.11 kg/m Last 6 Encounter Wt Readings: Date: Wt: 04/14/2022 78.5 kg (173 lb) 10/12/2021 78.9 kg (174 lb) 03/27/2021 77.6 kg (171 lb) 09/12/2020 78 kg (172 lb) 11/28/2019 77.1 kg (170 lb) 06/09/2019 76.2 kg (168 lb) General Appearance: Well appearing, alert, in no acute distress, well-hydrated, well nourished.. Skin: Skin color, texture, turgor normal, no suspicious rashes or lesions. Head: Normocephalic, no masses, lesions, tenderness or abnormalities. Eyes: Anicteric sclera. Pupils are equally round and reactive to light. Extraocular movements are intact. . Ears: External ears, TM's normal, canals clear. Neck: Supple, no adenopathy; thyroid symmetric, normal size, no bruits. Lungs: Lungs clear to auscultation. No wheezing, rhonchi, rales.. Heart: RRR without murmur, gallop, or rubs. No ectopy. Abdomen: Normal abdominal exam, Abdomen soft, non-tender. Bowel sounds normal. No masses, organomegaly. Extremities: No deformities, edema, skin discoloration.. Musculoskeletal: Spine range of motion normal. Muscular strength intact, No joint swelling, deformity, or tenderness. Peripheral Pulses: Normal. Neurologic: Gait normal. Reflexes normal and symmetric. Sensation to light touch and crainal nerves 2-12 intact.. Genitalia: Normal, Penis normal. No urethral discharge. Scrotum normal to palpation. No hernia.. Rectal: Normal exam. Health Maintenance List DEPRESSION SCREENING due on 06/09/2020 COVID-19 VACCINE(4 - Booster for Moderna series) due on 04/17/2022 COLORECTAL CANCER SCREENING due on 12/25/2022 DIABETES SCREEN due on 10/12/2024 PROSTATE CANCER SCREENING DISCUSSION due on 04/03/2026 LIPID SCREEN due on 10/12/2026 SHINGRIX VACCINE Completed DTAP,TDAP,TD Discontinued INFLUENZA Discontinued HEPATITIS C SCREENING Discontinued HIV SCREENING Discontinued Data reviewed A/P ASSESSMENT/PLAN: 1. Well adult exam - ICD9: V70.0, ICD10: Z00.00 (primary diagnosis) - Counseled on healthy diet and regular exercise - Follow up for annual exam in one year 2. Mixed hyperlipidemia - ICD9: 272.2, ICD10: E78.2 - to be determined upon return of lab results - Encouraged following a low fat, low cholesterol diet. - Discussed the benefits of regular aerobic exercise and weight loss. - Encouraged following a low carbohydrate, healthy oil intake diet. - Continue current therapy. 3. Elevated fasting blood sugar - ICD9: 790.21, ICD10: R73.01 - Await labs 4. Gastroesophageal reflux disease without esophagitis - ICD9: 530.81, ICD10: K21.9 - Continue treatment with Prilosec 20 mg every day - Await labs 5. Migraine without aura and without status migrainosus, not intractable - ICD9: 346.10, ICD10: G43.009 - Clinically stable no changes. 6. Idiopathic chronic pancreatitis (HCC) - ICD9: 577.1, ICD10: K86.1 Cont prn - OXYCODONE 5 MG TABLET - Cont Levsin. - Consult to Gastro: Dr. Pereira. PDMP website checked and validated. All prescriptions have been APPROPRIATELY filled. No suspicious activity was identified. 04/14/2022 by Shama Santiago MD 7. Sphincter of Oddi dysfunction - ICD9: 576.5, ICD10: K83.4 - As per #6 8. Allergic rhinitis, unspecified seasonality, unspecified trigger - ICD9: 477.9, ICD10: J30.9 - Stable. F/u 6 months routine check LIPID, CMP and A1c prior Shama Santiago MD documented in this encounter [facility] 01-29-2022 Miscellaneous Notes Patient has been identified by name and date of : Yes Patient phones for refill(s): Pending Prescriptions Disp Refills OMEPRAZOLE 20 MG CAPSULE,DELAYED RELEASE 90 capsule 1 Sig: Take 1 capsule by mouth once daily. YULISA: No PROPRANOLOL ER 80 MG CAPSULE,24 HR,EXTENDED RELEASE 90 capsule 1 Sig: Take 1 capsule by mouth once daily. YULISA: No Date of last office visit with pcp:10/12/2021 Future appt: 04/14/2022 Last 2 Encounter Wt Readings: Date: Wt: 10/12/2021 78.9 kg (174 lb) 03/27/2021 77.6 kg (171 lb) Previous labs/tests for medication: Blood Pressure: BUN (mg/dL) Date Value 04/03/2021 17 Sodium (mmol/L) Date Value 04/03/2021 141 Last 1 Encounter BP Readings: Date: BP: 10/12/2021 122/80 Liver Function: ALT (U/L) Date Value 04/03/2021 38 AST (U/L) Date Value 04/03/2021 27 Please advise. Thank you. Adrienne Campuzano RN documented in this encounter [facility] Diagnosis Mixed hyperlipidemia- Primary Elevated fasting blood sugar Impaired fasting glucose Idiopathic chronic pancreatitis (HCC) Gastroesophageal reflux disease without esophagitis Esophageal reflux Migraine without aura and without status migrainosus, not intractable Migraine without aura, without mention of intractable migraine without mention of status migrainosus Celiac disease Prostate cancer screening Special screening for malignant neoplasm of prostate Medication management Encounter for long-term (current) use of other medications [facility] Diagnosis Well adult exam- Primary Routine general medical examination at a health care facility Elevated fasting blood sugar Impaired fasting glucose Mixed hyperlipidemia Gastroesophageal reflux disease without esophagitis Esophageal reflux Migraine without aura and without status migrainosus, not intractable Migraine without aura, without mention of intractable migraine without mention of status migrainosus Idiopathic chronic pancreatitis (HCC) Celiac disease Pancreatic cyst Cyst and pseudocyst of pancreas documented in this encounter [facility] Advance Directives Documents on File Type Date Recorded Patient Circulation Supervisor Expl anation Advance Directive(s) 12/25/2017 9:54 AM Advance Directive(s) 12/21/2017 8:46 AM Documents on File Type Date Recorded Patient Circulation Supervisor Expl anation Advance Directive(s) 12/25/2017 9:54 AM Advance Directive(s) 12/21/2017 8:46 AM Reason for Referral Specialty Diagnoses / Procedures Referred By Robert wylie Referred To Contact Gastroenterology Diagnoses Idiopathic chronic pancreatitis (HCC) Sphincter of Oddi dysfunction Procedures CONSULT TO GASTROENTEROLOGY OFFICE/OUTPATIENT [facility] 60-74 MINUTES Shama Santiago MD [address] [place] [address] Referral ID Status Reason Start Date Expiration Date Visits Requested Visits Authorized [id number] Authorized PCP Requested Referral 04/14/2022 04/14/2023 1 1 Summary Purpose Family History No Family History Records FoundNo Family History Records Found Additional Source Comments Source Comments (unrecognize d section and content) In the event this informatio n is protected by the Federal Confidentiality of Alcohol and Drug Abuse Patient Records regulations: The Federal rules restrict any use of the information to criminally investigate or prosecute any alcohol or drug abuse patient.[facility] the event this information is protected by the Federal Confidentiality of Alcohol and Drug Abuse Patient Records regulations: The Federal rules restrict any use of the information to criminally investigate or prosecute any alcohol or drug abuse patient.[facility] the event this information is protected by the Federal Confidentiality of Alcohol and Drug Abuse Patient Records regulations: The Federal rules restrict any use of the information to criminally investigate or prosecute any alcohol or drug abuse patient.[facility] the event this information is protected by the Federal Confidentiality of Alcohol and Drug Abuse Patient Records regulations: The Federal rules restrict any use of the information to criminally investigate or prosecute any alcohol or drug abuse patient.[facility] the event this information is protected by the Federal Confidentiality of Alcohol and Drug Abuse Patient Records regulations: The Federal rules restrict any use of the information to criminally investigate or prosecute any alcohol or drug abuse patient.[facility] the event this information is protected by the Federal Confidentiality of Alcohol and Drug Abuse Patient Records regulations: The Federal rules restrict any use of the information to criminally investigate or prosecute any alcohol or drug abuse patient.[facility] the event this information is protected by the Federal Confidentiality of Alcohol and Drug Abuse Patient Records regulations: The Federal rules restrict any use of the information to criminally investigate or prosecute any alcohol or drug abuse patient.[facility] the event this information is protected by the Federal Confidentiality of Alcohol and Drug Abuse Patient Records regulations: The Federal rules restrict any use of the information to criminally investigate or prosecute any alcohol or drug abuse patient.[facility] the event this information is protected by the Federal Confidentiality of Alcohol and Drug Abuse Patient Records regulations: The Federal rules restrict any use of the information to criminally investigate or prosecute any alcohol or drug abuse patient.[facility] the event this information is protected by the Federal Confidentiality of Alcohol and Drug Abuse Patient Records regulations: The Federal rules restrict any use of the information to criminally investigate or prosecute any alcohol or drug abuse patient.[facility] the event this information is protected by the Federal Confidentiality of Alcohol and Drug Abuse Patient Records regulations: The Federal rules restrict any use of the information to criminally investigate or prosecute any alcohol or drug abuse patient.[facility] the event this information is protected by the Federal Confidentiality of Alcohol and Drug Abuse Patient Records regulations: The Federal rules restrict any use of the information to criminally investigate or prosecute any alcohol or drug abuse patient.[facility] the event this information is protected by the Federal Confidentiality of Alcohol and Drug Abuse Patient Records regulations: The Federal rules restrict any use of the information to criminally investigate or prosecute any alcohol or drug abuse patient.[facility] the event this information is protected by the Federal Confidentiality of Alcohol and Drug Abuse Patient Records regulations: The Federal rules restrict any use of the information to criminally investigate or prosecute any alcohol or drug abuse patient.[facility] Reason for Visit (unrecogniz ed section and content) Reason Comments Physical Reason Comments Refill Request Reason Comments F/U 6 months Reason Comments Results Reason Onset Date Comments Refill Request 01/14/2023 Reason Onset Date Comments Refill Request 04/27/2023 Reason Comments Outside Hycr-Spe-EIJ Ordered Reason Comments Physical Reason Comments Outside Colonoscopy Reason Onset Date Comments Refill Request 07/23/2023 Care Teams (unrecognized sec tion and content) Concrete Conveyor Operator Relationship Specialty Start Date End Date Shama Santiago MD [address] [place] [address] PCP - General Family Practice 08/07/15 Concrete Conveyor Operator Relationship Specialty Start Date End Date Shama Santiago MD [address] [place] [address] PCP - General Family Medicine 08/07/15 Concrete Conveyor Operator Relationship Specialty Start Date End Date Shama Santiago MD [address] [place] [address] PCP - General Family Medicine 08/07/15 Concrete Conveyor Operator Relationship Specialty Start Date End Date Shama Santiago MD [address] [place] [address] PCP - General Family Medicine 08/07/15 Concrete Conveyor Operator Relationship Specialty Start Date End Date Shama Santiago MD [address] [place] [address] PCP - General Family Medicine 08/07/15 Concrete Conveyor Operator Relationship Specialty Start Date End Date Shama Santiago MD [address] [place] [address] PCP - General Family Medicine 08/07/15 Concrete Conveyor Operator Relationship Specialty Start Date End Date Shama Santiago MD [address] [place] [address] PCP - General Family Medicine 08/07/15 Concrete Conveyor Operator Relationship Specialty Start Date End Date Shama Santiago MD [address] [place] [address] PCP - General Family Medicine 08/07/15 [employer] Relationship Specialty Start Date End Date Shama Santiago MD [address] [facility] [place] [address] PCP - General Family Medicine 08/07/15 [employer] Relationship Specialty Start Date End Date Shama Santiago MD [address] [place] [address] PCP - General Family Medicine 08/07/15 (unrecognized sect ion and content) No Status Records FoundNo Status Records Found INFORMATION SOURCE (unrecogn ized section and content) DATE CREATED AUTHOR AUTHOR'S KAYE CHAVIRA 11/04/2023 [facility] FOR RECORDS PERTAINING TO PATIENTS WHO ARE OR HAVE BEEN ENROLLED IN A CHEMICAL DEPENDENCY/SUBSTANCEABUSE PROGRAM, SOME INFORMATION MAY BE OMITTED. This clinical summary was aggregated from multiple sources. Caution should be exercised in using it in the provision of clinical care. This summary normalizes information from multiple sources, and as a consequence, information in this document may materially change the coding, format and clinical context of patient data. In addition, data may be omitted in some cases. CLINICAL DECISIONS SHOULD BE BASED ON THE PRIMARY CLINICAL RECORDS. [facility] [employer] [facility]. provides no warranty or guarantee of the accuracy or completeness of information in this document.
[2023-11-23 20:07] LABS: Pancreatic Elastase, Fecal 114 (>200)
== END | disposition home or self-care (01) ==
LOC: LABSPEC 14:38
PROVIDERS: PCP Family Medicine; Referring Provider Internal Medicine Gastroenterology; Visit Provider Internal Medicine Gastroenterology
DX: K90.0 Celiac disease (principal); K85.00 Idiopathic acute pancreatitis without necrosis or infection
CPT/HCPCS: 82653

== ENCOUNTER → 2024-05-16 | Outpatient (CLI) | payer BC, SELFPAY ==
[2024-05-16 16:12] LABS: Erythrocyte Sedimentation Rate 15 mm/hr (0-20)
[2024-05-16 16:44] LABS: CRP < 2.90 mg/L (0.0-3.0)
[2024-05-19 16:10] LABS: Deamidated Gliadin IgA 15 units (0-19); Deamidated Gliadin IgG 5 units (0-19); Endomysial Antibody IgA Negative (Negative); Immunoglobulin A 322 mg/dL (90-386); t-Transglutaminase IgA 2 U/mL (0-3)
== END | disposition home or self-care (01) ==
PROVIDERS: PCP Family Medicine; Referring Provider Internal Medicine Gastroenterology; Visit Provider Internal Medicine Gastroenterology
DX: K85.00 Idiopathic acute pancreatitis without necrosis or infection (principal); K90.0 Celiac disease; K83.4 Spasm of sphincter of Oddi; R10.84 Generalized abdominal pain
CPT/HCPCS: 36415; 82784; 83516; 85652; 86140; 86255

== ENCOUNTER → 2024-05-17 | Outpatient (CLI) | payer BC, SELFPAY ==
[2024-05-20 00:07] LABS: Pancreatic Elastase, Fecal 510 (>200)
== END | disposition home or self-care (01) ==
LOC: LABSPEC 10:16
PROVIDERS: PCP Family Medicine; Referring Provider Internal Medicine Gastroenterology; Visit Provider Internal Medicine Gastroenterology
DX: K85.00 Idiopathic acute pancreatitis without necrosis or infection (principal); K90.0 Celiac disease; K83.4 Spasm of sphincter of Oddi; R10.84 Generalized abdominal pain
CPT/HCPCS: 82653

== ENCOUNTER → 2025-07-24 | Outpatient (CLI) | payer BC, SELFPAY ==
--- NOTE | 2025-07-24 10:11 | NM_ITS ---
PROCEDURE: GASTRIC EMPTYING STUDY 07/24/2025 REASON FOR EXAM: ABDOMINAL PAIN COMPARISON: None TECHNIQUE: Procedure Code: NMGES Modality: NM Procedure: GASTRIC EMPTYING STUDY The patient ingested a standard meal of oatmeal, and water. Delete there was no vomiting postprandially. Anterior and posterior planar images of the upper abdomen were obtained for 1 minute immediately following the meal at 1h, 2h and 4h if more than 10% of the activity persisted within the stomach. Regions of interest were drawn, and a geometric mean was used to calculate a [id number]. Medications taken in the past 24 hours that may affect gastric emptying: None RADIOPHARMACEUTICAL: Technetium labeled sulfur colloid DOSE 1.2mCi FINDINGS: Percent activity remaining in stomach: 1 hour 38 % (normal 37-90%) 2 NM/Gastric Emptying Study IMPRESSION: Normal gastric emptying examination. Reading Location: [id number]
--- OUTSIDE RECORDS SUMMARY | 2025-07-24 13:26 | XMS RPT_ITS | CCD ---
Author Organization [facility] Care Team Providers Care Solar Installation Supervisor Name Role Phone Israel Santiago MD Primary Care Provider Care Physician, No Primary Primary Care Provider Unavailable Care Physician, No Primary Referring Provider Un available FriendDr. Godfrey Attending Provider [phone] Israel Santiago MD Primary Care Provider Israel Santiago MD Primary Care Provider Dr. Israel Santiago Primary Care Provider Dr. Israel Santiago Referring Provider Dr. Epifanio Pereira Attending Provider Dr. Israel Santiago Primary Care Provider Dr. Israel Santiago Referring Provider Dr. Epifanio Pereira Attending Provider [phone] Dr. Epifanio Pereira Other Provider Dr. Israel Santiago Primary Care Provider Dr. Israel Santiago Referring Provider Dr. Epifanio Pereira Attending Provider Dr. Epifanio Pereira Other Provider ISRAEL SANTIAGO Primary Care Unavailable FRIEND, DO GODFREY Attending Unavailable FRIEND, DO EPIFANIO Referring Unavailable Dr. Israel Santiago Primary Care Provider Dr. Israel Santiago Referring Provider Dr. Epifanio Pereira Attending Provider [phone] Israel Santiago MD Primary Care Provider Kn[place]le TOBACCO SPRAYER.Batsheva SIGALA Unavailable Darby Wilkins PA-C Unavailable Israel Santiago MD Primary Care Provider Supa TOBACCO SPRAYER.WIRE BRUSH OPERATORBatsheva Unavailable Darby Wilkins PA-C Unavailable ISRAEL SANTIAGO Attending Unavailable ISRAEL SANTIAGO Primary Care Unavailable ISRAEL SANTIAGO Referring Unavailable ISRAEL SANTIAGO Primary Care Unavailable ISRAEL SANTIAGO Primary Care Unavailable ISRAEL SANTIAGO Referring Unavailable ISRAEL SANTIAGO Attending Unavailable ISREAL SANTIAGO Primary Care Unavailable ISRAEL SANTIAGO Primary Care Unavailable ISRAEL SANTIAGO Referring Unavailable Friend, Epifanio Attending Unavailable Israel Santiago Referring Unavailable Israel Santiago Primary Care Unavailable Friend, Epifanio Attending Unavailable Israel Santiago Referring Unavailable Israel Santiago Primary Care Unavailable Friend, Epifanio Referring Unavailable Friend, Epifanio Attending Unavailable Israel Santiago Primary Care Unavailable Allergies Allergy Classification Reported Allergen(s) Allergy Type Date of Onset Reaction(s) Facility (4 sources) Penicillins; Translations: [PENICILLINS] Drug Allergy 6 Swelling, Shortness of Breath [facility] Work Phone: (20 sources) topiramate; Translations: [TOPIRAMATE] Drug Allergy 5 Other: See Comments [facility] Work Phone: (20 sources) Valproate; Translations: [DIVALPROEX SODIUM] Drug Allergy 5 Other: See Comments [facility] Work Phone: (2 sources) Tetanus Vaccines And Toxoid; Translations: [TETANUS VACCINES AND TOXOID] Drug Allergy 6 Swelling [facility] Work Phone: (20 sources) Penicillins Drug Allergy 6 Swelling, Shortness of Breath [facility] Work Phone: (20 sources) Tetanus Vaccines And Toxoid Drug Allergy 6 Swelling [facility] Work Phone: (8 sources) Penicillins Allergy to substance 4 Swelling [facility] (9 sources) tetanus and diphtheria toxoids; Translations: [tetanus and diphtheria toxoids] Allergy to substance 4 Swelling [facility] (2 sources) Penicillins Drug Allergy 6 Swelling, Shortness of Breath [facility] (1 source) Penicillins Drug allergy (disorder) 3 [facility] (1 source) topiramate Drug Allergy 3 [facility] (1 source) Valproate Drug Allergy 3 [facility] Medications Current Medications Medication Drug Class(es) Dates Sig (Normalized) Sig (Original) amylase 177269 unt / lipase 27572 unt / protease 204162 unt delayed release oral capsule (20 sources) Start: 10-12-2021 End: 11-23-2024 take 3 capsules by mouth three times daily at mealtime [id number]-[id number] mylase (CREON) 36,000-114,000- 180,000 unit delayed release capsule Take 3 capsules by mouth three times a day with meals. 810 capsule 3 11/23/2024 Active Comment on above: Take 2 capsules by m outh three times daily with meals. Take 3 capsules by m outh three times daily with meals. atorvastatin 10 mg oral tablet (20 sources) HMG-CoA Reductase Inhibitor Start: 10-12-2021 End: 03-20-2025 atorvastatin (LIPITOR) 10 mg tablet TAKE 1 TABLET DAILY AT BEDTIME FOR CHOLESTEROL 90 tablet 1 03/20/2025 Active Comment on above: Take 1 tablet by paco th daily at bedtime. For cholesterol. TAKE 1 TABLET DAILY AT BEDTIME FOR CHOLESTEROL dicyclomine hydrochloride 10 mg oral capsule (20 sources) Anticholinergic Start: 08-05-2023 End: 08-05-2023 take 1 capsule by mouth twice daily as needed for pain dicyclomine (BENTYL) 10 mg capsule TAKE 1 CAPSULE BY MOUTH 2 TIMES A DAY NEEDED FOR ABDOMINAL PAIN. MAY TAKE AN ADDITIONAL CAPSULE NEEDED. 08/05/2023 Active Start: 07-14-2023 take 10 mg by mouth three times daily Dicyclomine Active 10 MG PO THREE TIMES A DAY July 13, 2023 11:00pm Start: 06-02-2023 End: 07-02-2023 take 10 mg by mouth three times daily Dicyclomine Discontinued 10 MG PO THREE TIMES A DAY June 01, 2023 11:00pm July 01, 2023 11:04pm Comment on above: TAKE 1 CAPSULE BY MO [facility] 2 TIMES A DAY NEEDED FOR ABDOMINAL PAIN. MAY TAKE AN ADDITIONAL CAPSULE NEEDED. omeprazole 20 mg delayed release oral capsule (20 sources) Proton Pump Inhibitor Start: End: take 1 capsule by mouth once daily omeprazole (PRILOSEC) 20 mg capsule Take 1 capsule by mouth once daily. 90 capsule 1 05/26/2025 Active Comment on above: Take 1 capsule by [facility] once daily. oxyCODONE hydrochloride 5 mg oral tablet (20 sources) Opioid Agonist Start: End: take 1 tablet by mouth every eight hours as needed for pain oxyCODONE IR (ROXICODONE) 5 mg immediate release tablet Indications: Idiopathic chronic pancreatitis (HCC) Take 1 tablet by mouth every 8 hours as needed for pain for up to 7 days. This is for recurrent pancreatitis outbreaks. 21 tablet 05/26/2025 06/02/2025 Active Start: 04-14-2022 End: 05-21-2023 take 1 tablet by mouth every eight hours as needed for pain oxyCODONE IR (ROXICODONE) 5 mg immediate release tablet Indications: Idiopathic chronic pancreatitis (HCC) Take 1 tablet by mouth every 8 hours as needed for pain for up to 7 days. This is for recurrent pancreatitis outbreaks. 21 tablet 0 05/14/2023 Active Start: 10-12-2021 End: 04-14-2022 take 1 tablet by mouth every six hours as needed for pain oxyCODONE IR (ROXICODONE) 5 mg immediate release tablet Indications: Idiopathic chronic pancreatitis (HCC) Take 1 tablet by mouth every 6 hours as needed for pain for up to 180 days. 20 tablet 0 10/12/2021 04/14/2022 Discontinued Start: 07-25-2015 take 5-10 mg by mout h every four hours as needed Oxycodone Active 5 - 10 MG PO EVERY 4 HOURS NEEDED 40 July 24, 2015 11:00pm Comment on above: Take 1 tablet by [facility] every 6 hours as needed for pain for up to 180 days. Take 1 tablet by paco th every 8 hours as needed for pain for up to 7 days. This is for recurrent pancreatitis outbreaks. promethazine hydrochloride 12.5 mg oral tablet (20 sources) Phenothiazine Start: 08-07-20 End: 05-26-20 take 1 tablet by mouth every six hours as needed promethazine (PHENERGAN) 12.5 mg tablet Take 1 tablet by mouth every 6 hours as needed. 90 tablet 05/26/2025 Active Start: 07-25-2015 take 12.5-25 mg by m out every four hours as needed Promethazine Active 12.5 - 25 MG PO EVERY 4 HOURS NEEDED July 24, 2015 11:00pm Comment on above: Take 1 tablet by paco every 6 hours as needed. 24 hr propranolol hydrochloride 80 mg extended release oral capsule (20 sources) beta-Adrenergic Howard Start: End: take 1 capsule by mouth once daily propranolol ER (INDERAL LA) 80 mg 24 hr capsule Take 1 capsule by mouth once daily. 90 capsule 1 05/26/2025 Active Start: 06-06-2014 take 80 mg by mouth once daily Propranolol Active 80 MG PO DAILY June 05, 2014 11:00pm Comment on above: Take 1 capsule by [facility] once daily. 0.5 ml SUMAtriptan 12 mg/ml auto-injector (20 sources) Serotonin-1b and Serotonin-1d Receptor Agonist Start: 04-29-2022 Sumatriptan Succinate Active 6 MG SC every 1 to 4 hours April 28, 2022 11:00pm do not exceed 2 doses in a 24 hour period Start: 11-13-2017 SUMAtriptan [place] ccinate 6 mg/0.5 mL crtg Inject 6 mg subcutaneously. As needed for migraine. May repeat after 1 hour if needed. No more than 2 doses in 24 hours. 24 Kit 3 11/13/2017 Active Comment on above: Inject 6 mg subcutan eously. As needed for migraine. May repeat after 1 hour if needed. No more than 2 doses in 24 hours. Completed/Discontinued Medications Medication Drug Class(es) Dates Sig (Normalized) Sig (Original) acetaminophen 325 mg / oxyCODONE hydrochloride 5 mg oral tablet (8 sources) Opioid Agonist Start: 06-06-2014 End: 07-25-2015 take 1 tablet by mouth every four hours as needed Oxycodone-Acetamin ophen Discontinued 1 - 2 TABLET PO EVERY 4 HOURS NEEDED June 05, 2014 11:00pm July 25, 2015 11:44am doxycycline hyclate 100 mg oral capsule (4 sources) Tetracycline-cla ss Drug Start: 08-05-2023 End: 09-04-2023 take 100 mg by mouth twice daily Doxycycline Hyclate Discontinued 100 MG PO TWICE A DAY 60 August 05, 2023 8:39am September 04, 2023 12:05am hyoscyamine sulfate 0.125 mg oral tablet (20 sources) Start: 04-29-2022 Hyoscyamine Sulfate (Levsin) 0.125 mg tablet Active 0.125 MG PO 2 to 4 times per day April 29, 2022 12:00am Start: 07-26-2020 End: 11-23-2024 take 1 tablet by mouth twice daily hyoscyamine (LEVSIN) 0.125 mg tablet Take 1 tablet by mouth twice daily. 180 tablet 1 10/15/2022 11/23/2024 Discontinued (Discontinued by another Health Care Provider) Comment on above: Take 1 tablet by paco twice daily. rifAXIMin 550 mg oral tablet (3 sources) Rifamycin Antibacterial Start: 3 End: 3 take 1 tablet by mouth twice daily Rifaximin (Xifaxan) 550 mg tablet Discontinued 550 MG PO TWICE A DAY May 24, 2023 11:00pm June 02, 2023 7:53am Problems Active Problems Problem Classification Problem Date Documented Da te Episodic/Chronic Abdominal pain (9 sources) Abdominal pain; Translations: [Unspecified abdominal pain] Onset: 5 07-23-2015 Episodic Biliary tract disease (20 sources) Dysfunction of sphincter of Oddi; Translations: [Spasm of sphincter of Oddi] Onset: 5 05-12-2017 Chronic Calculus of urinary tract (20 sources) Urolithiasis ; Translations: [Urinary calculus, unspecified] 09-23-2021 Episodic Disorders of lipid metabolism (20 sources) Mixed hyperlipidemia; Translations: [Mixed hyperlipidemia] Onset: 5 2015 Chronic Esophageal disorders (20 sources) Gastroesophageal reflux disease without esophagitis; Translations: [Gastro-esophageal reflux disease without esophagitis] Onset: 6 09-23-2021 Chronic Headache; including migraine (20 sources) Migraine without aura, not refractory ; Translations: [Migraine without aura, not intractable, without status migrainosus] Onset: 6 11-08-2015 Chronic Other aftercare (20 sources) Patient encounter status; Translations: [Other assisted (current) drug therapy] Onset: 6 09-12-2020 Episodic Other gastrointestinal disorders (20 sources) Celiac disease; Translations: [Celiac disease] Onset: 3 Chronic Other gastrointestinal disorders (6 sources) Celiac disease; Translations: [Celiac disease] Onset: 3 10-10-2022 Chronic Other screening for suspected conditions (not mental disorders or infectious disease) (20 sources) Liver function tests abnormal; Translations: [Abnormal results of liver function studies] Onset: 6 2015 Episodic Other upper respiratory disease (20 sources) Allergic rhinitis; Translations: [Allergic rhinitis, unspecified] Onset: 6 11-17-2018 Chronic Other upper respiratory disease (20 sources) Deviated nasal septum; Translations: [Deviated nasal septum] 2015 Episodic Pancreatic disorders (not diabetes) (20 sources) Idiopathic chronic pancreatitis; Translations: [Other chronic pancreatitis] Onset: 7 05-12-2017 Chronic Screening and history of mental health and substance abuse codes (20 sources) Ex-smoker; Translations: [Personal history of nicotine dependence] Onset: 1 03-27-2021 Episodic Unclassified (8 sources) Transformed migraine; Translations: [Chronic migraine] 07-23-2015 Past or Other Problems Problem Classification Problem Date Documented Date Episodic/Chronic Abdominal hernia (20 sources) Diaphragmatic hernia; Translations: [Diaphragmatic hernia without obstruction or gangrene] Onset: 10-05-2007 2015 Episodic Anal and rectal conditions (20 sources) Anal fissure; Translations: [Anal fissure, unspecified] Onset: 01-22-2012 2015 Episodic Diabetes mellitus without complication (20 sources) Hyperglycemia; Translations: [Impaired fasting glucose] Onset: 11-13-2017 11-13-2017 Episodic Genitourinary symptoms and ill-defined conditions (20 sources) Proteinuria; Translations: [Proteinuria, unspecified] Onset: 11-28-2016 05-12-2017 Episodic Immunizations and screening for infectious disease (3 sources) Vaccination needed; Translations: [Encounter for immunization] Onset: 11-23-2024 11-18-2023 Episodic Other aftercare (1 source) Drug therapy finding; Translations: [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] Onset: 11-10-2016 11-13-2017 Episodic Other aftercare (1 source) 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 [address] OFFICE VISIT Date of Service: 07/10/25 MR#: [id number] Acct: [id number] Name: MICHAEL ALEXANDRA Rep #: [id number] : 1965 Provider: Epifanio Pereira DO Age/Sex: 59/M Location: [facility] [place] Status: Signed Intake Vital Signs 07/20/23 10:01 Height 5 ft 8 in Intake Visit Reasons: 6 M FU Allergies divalproex sodium (From Depakote) Allergy (Intermediate, Verified 07/20/23 09:58) pancreatitis topiramate (From Topamax) Allergy (Intermediate, Verified 07/20/23 09:58) Renal stones Penicillins Allergy (Verified 07/20/23 09:58) Swelling tetanus and diphtheria toxoids (Tetanus Diphtheria Toxoid) Allergy (Verified 07/20/23 09:58) Swelling Medications ???Medication ???Instructions ???Recorded ???Confirmed ???Type omeprazole 20 mg capsule,delayed 20 mg PO DAILY 06/06/14 07/10/25 H istory release propranolol 80 mg tablet 80 mg PO DAILY 06/06/14 07/10/25 H istory oxycodone 5 mg tablet 5 - 10 mg (1 - 2 x 5 mg) PO Q4H 07/10/25 Rx PRN PRN PAIN #40 TABLETS promethazine 25 mg tablet 12.5 - 25 mg (0.5 - 1 x 25 mg) PO 07/25/15 07/10/25 Rx Q4H PRN PRN Nausea #20 TABLETS atorvastatin 10 mg tablet 10 mg PO QHS 04/29/22 07/10/25 His tory [id number] 3 cap PO TID 04/29/22 07/10/25 His tory 36,000-114,000-180,000 unit capsule,delay rel (Creon) sumatriptan succinate 6 mg/0.5 mL 6 mg subcut Q1-4H PRN migraine 07/10/25 History subcutaneous pen injector headache dicyclomine 10 mg capsule 10 mg PO BID PRN abdominal pain 30 09/19/24 07/10/25 Rx days #90 caps metformin 500 mg tablet 500 mg PO QDAY 07/10/25 07/10/25 H istory PFSH Medical History Abnormal LFTs Allergic rhinitis Anal fissure Chronic pancreatitis Deviated septum Diaphragmatic hernia without mention of obstruction or gangrene Elevated fasting blood sugar Former smoker GERD (gastroesophageal reflux disease) High cholesterol History of renal stone Migraine headache Mixed hyperlipidemia Myopathy Pancreatic cyst Spasm of sphincter of Oddi Syncope Wears glasses Wears partial dentures Surgical History H/O colectomy History of cholecystectomy Family History Mother , Colon cancer mets to liver Colon cancer Father TIA (transient ischemic attack) Colitis Brother Colitis Esophageal rupture Social History Smoking Status: Former smoker alcohol intake: never HPI HPI Details: MICHAEL ALEXANDRA, is a 59 M who presents to the office today for follow up. FH colon cancer with mets to liver mother with age 52; father colitis; brother colitis with r/t esophageal vessel rupture. ??? Prior workup: MRI abd 06.11.18???OSH with degradation of exam r/t motion. Distal pancreatic cyst 3mm. Hepatic subcentimeter cysts noted with right lobe, steatosis. ??? *BGI established 07.14.22 with history of idiopathic chronic pancreatitis and previously diagnosed sphincter Oddi dysfunction by Dr. Pitts [facility]. Utilizes Creon 36k 2 tabs with meals to manage pancreatitis; increased approximately a year prior and aided in reducing frequency. Feels he is doing overall well but has issues several times a month with LUQ abdominal pain radiating into back, increased flatulence; symptoms previously lasted approximately a day but have since been lasting longer. Previous doctor prescribed PRN oxycodone for the pain which was helpful and will follow a clear liquid diet. GERD and issue which is managed with Prilosec 20mg QD. ?Biochem ical???CRP,???ANCA,???amyl ase, CMP (ALT H69), lipase,???ESR,???GAME, ALBINA without pertinent abnormality. LDH H247, Celiac +, tiss transglutaminase H39 Stool testing C.Difficile (cancelled), enteric pathogen, lactoferrin WNL. Ova/parasites and giardia not run. Calprotectin H166, Elastase L183, total fats increased Contact 07.18.22 to discuss results. ?CT abd/pel 07.23.22???with findings suggestive of jejunal enteritis and moderate colonic gas and stool burden. OV 10.10.22 suspect celiac disease-causing EPI resulting in pancreatitis, though there is possibility of chronic pancreatitis not related to celiac disease. Perform blood/stool testing after 3 months of gluten free. OV 01.12.23 Feels he is doing well since going gluten free; will continue to have intermittent bloating and pain that he can trace to foods. 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 ?Biochem ical???ESR, (more content not included)... Normal [facility] Free PSA [Mass/Vol]on 2024 Free PSA/Total PSA [Mass fraction] 25 % Normal [facility] Comment on above: Order Comment: Speci men Type: BLOOD SPECIMEN Ordering Facility: [facility] Address: [address] [place] [address] Result Comment: Tota l and free PSA test methodology used is the Electrochemiluminescence Immunoassay by [employer]. Total or free PSA values by differing methodologies cannot be interchanged. The below table lists the probability of finding prostate cancer upon needle biopsy, for men 50 years or older and total PSA concentrations from 4.0-10.0 ng/mL. Results should be interpreted within the broader clinical context. Free PSA(%) 50-59 years 60-69 years >69 years <11 49.2% 57.5% 64.5% 11-18 26.9% 33.9% 40.8% 19-25 18.3% 23.9% 29.7% >25 9.1% 12.2% 15.8% Performed By: #### 1 0886-0, 97338-9 #### [facility] CLIA [id number] [address] [place] [address] [place] Prostate specific Ag [Mass/Vol] 2.67 ng/mL High <2.60 [facility] Comment on above: Order Comment: Speci men Type: BLOOD SPECIMEN Ordering Facility: [facility] Address: [address] [place] [address] Result Comment: Tota l PSA test methodology used is the Electrochemiluminescence Immunoassay by [employer]. Total PSA values by differing methodologies cannot be interchanged. For an individual patient, the significance of a PSA level should be interpreted in a broad clinical context, including age, race, family history, digital rectal exam, prostate size, results of prior testing (prostate biopsy, free PSA, PCA3), and use of 5-alpha reductase inhibitors. Considering the high incidence of asymptomatic cancer in the general population that may not pose an ultimate risk to a patient, the decision to recommend urological evaluation or prostate biopsy should be individualized after consideration of all these factors. REFERENCE: Juli Rodriguez M.D., M.P.H., Pee Ortiz M.D., Ph.D., Shalom De Luna M.D., Mile Mccallum, M.P.H., Evelia Hutson Sc.D. Effect of Verification Bias on Screening for Prostate Cancer by Measurement of Prostatic Specific Antigen. N Engl J Med 2003,349:335-42. Performed By: #### 1 0886-0, 99804-9 #### [facility] CLIA [id number] [address] [place] [address] [place] HAV IgM Ser Qlon 07-03-2025 HAV IgM Ql (S) Negative Normal Negative [facility] Comment on above: Order Comment: Speci men Type: BLOOD SPECIMEN Ordering Facility: [facility] Address: [address] [place] [address] Result Comment: No e vidence of recent infection with Hepatitis A virus. Performed By: #### 1 9123-9, LIPNF, , 2132-05 #### [facility] CLIA [id number] [address] [place] [address] [place] HBV core IgM Ser Qlon 2024 HBV core IgM Ql (S) Negative Normal Negative [facility] Comment on above: Order Comment: Speci men Type: BLOOD SPECIMEN Ordering Facility: [facility] Address: [address] [place] [address] Result Comment: No e vidence of recent infection with Hepatitis B virus. Should recent infection be suspected, repeat testing may be considered 3-4 weeks after this draw. Performed By: #### 1 9123-9, LIPNF, , 2132-05 #### [facility] CLIA [id number] [address] [place] [address] [place] HBV surface Ag Ser Qlon 10 HBV surface Ag Ql (S) Negative Normal Negative [facility] Comment on above: Order Comment: Speci men Type: BLOOD SPECIMEN Ordering Facility: [facility] Address: [address] [place] [address] Performed By: #### 1 9123-9, LIPNF, 82599-0, 2132-9 #### [facility] CLIA [id number] [address] [place] [address] [place] HCV RNA REEMA+probe Qnon 07-03 HCV RNA REEMA+probe Ql Not detected Normal Not detected [facility] Comment on above: Order Comment: Speci men Type: BLOOD SPECIMEN Ordering Facility: [facility] Address: [address] [place] [address] Performed By: #### 1 1011-4 #### [facility] CLIA [id number] [address] [place] [address] [place] Hepatic function 2000 panelo n 07-03-2025 Albumin [Mass/Vol] 4.1 g/dL Normal 3.9-4.9 [facility] Comment on above: Order Comment: Speci men Type: BLOOD SPECIMEN Ordering Facility: [facility] Address: [address] [place] [address] Performed By: #### 1 0886-0, 77462-1 #### [facility] CLIA [id number] [address] [place] [address] [place] ALP [Catalytic activity/Vol] 73 U/L Normal 38-113 [facility] Comment on above: Order Comment: Speci men Type: BLOOD SPECIMEN Ordering Facility: [facility] Address: [address] [place] [address] Performed By: #### 1 0886-0, 90196-3 #### [facility] CLIA [id number] [address] [place] [address] [place] ALT [Catalytic activity/Vol] 45 U/L Normal 10-54 [facility] Comment on above: Order Comment: Speci men Type: BLOOD SPECIMEN Ordering Facility: [facility] Address: [address] [place] [address] Performed By: #### 1 0886-0, 01463-5 #### [facility] CLIA [id number] [address] [place] [address] [place] AST [Catalytic activity/Vol] 33 U/L Normal 14-40 [facility] Comment on above: Order Comment: Speci men Type: BLOOD SPECIMEN [facility] [facility] Address: [address] [place] [address] Performed By: #### 1 0886-0, 66332-2 #### [facility] CLIA [id number] [address] [place] [address] [place] Bilirubin [Mass/Vol] 0.3 mg/dL Normal 0.2-1.3 [facility] Comment on above: Order Comment: Speci men Type: BLOOD SPECIMEN Ordering Facility: [facility] Address: [address] [place] [address] Performed By: #### 1 0886-0, 62314-9 #### [facility] CLIA [id number] [address] [place] [address] [place] Bilirubin.conjugated [Mass/Vol] 0.1 mg/dL Normal <0.3 [facility] Comment on above: Order Comment: Speci men Type: BLOOD SPECIMEN Ordering Facility: [facility] Address: [address] [place] [address] Performed By: #### 1 0886-0, 92930-1 #### [facility] CLIA [id number] [address] [place] [address] [place] Protein [Mass/Vol] 6.8 g/dL Normal 6.3-8.0 [facility] Comment on above: Order Comment: Speci men Type: BLOOD SPECIMEN Ordering Facility: [facility] Address: [address] [place] [address] Performed By: #### 1 0886-0, 18407-4 #### [facility] CLIA [id number] [address] [place] [address] [place] CBC W Auto Differential pane l (Bld)on 05-26-2025 Basophils (Bld) [#/Vol] 0.04 10*3/uL Normal <0.11 [facility] Comment on above: Order Comment: Speci men Type: BLOOD SPECIMEN Ordering Facility: [facility] Address: [address] [place] [address] Performed By: #### 1 9123-9, LIPNF, , 2132-05 #### [facility] CLIA [id number] [address] [place] [address] [place] Basophils/100 WBC (Bld) 0.6 % Normal [facility] Comment on above: Order Comment: Speci men Type: BLOOD SPECIMEN Ordering Facility: [facility] Address: [address] [place] [address] Performed By: #### 1 9123-9, LIPNF, , 2132-05 #### [facility] CLIA [id number] [address] [place] [address] [place] Differential cell count method Nom (Bld) Auto Normal [facility] Comment on above: Order Comment: Speci men Type: BLOOD SPECIMEN Ordering Facility: [facility] Address: [address] [place] [address] Performed By: #### 1 9123-9, LIPNF, , 2132-05 #### [facility] CLIA [id number] [address] [place] [address] [place] Eosinophils (Bld) [#/Vol] 0.38 10*3/uL Normal <0.46 [facility] Comment on above: Order Comment: Speci men Type: BLOOD SPECIMEN Ordering Facility: [facility] Address: [address] [place] [address] Performed By: #### 1 9123-9, LIPNF, , 2132-05 #### [facility] CLIA [id number] [address] [place], [place] [address] [place] Eosinophils/100 WBC (Bld) 5.6 % Normal [facility] Comment on above: Order Comment: Speci men Type: BLOOD SPECIMEN Ordering Facility: [facility] Address: [address] [place] [address] Performed By: #### 1 9123-9, LIPNF, , 2132-05 #### [facility] CLIA [id number] [address] [place] [address] [place] Erythrocyte distribution width (RBC) [Ratio] 14.2 % Normal 11.5-15.0 [facility] Comment on above: Order Comment: Speci men Type: BLOOD SPECIMEN Ordering Facility: [facility] Address: [address] [place] [address] Performed By: #### 1 9123-9, LIPNF, , 2132-05 #### [facility] CLIA [id number] [address] [place] [address] [place] Hematocrit (Bld) [Volume fraction] 50.0 % Normal 39.0-51.0 [facility] Comment on above: Order Comment: Speci men Type: BLOOD SPECIMEN Ordering Facility: [facility] Address: [address] [place] [address] Performed By: #### 1 9123-9, LIPNF, , 2132-05 #### [facility] CLIA [id number] [address] [place], [place] [address] [place] Hemoglobin (Bld) [Mass/Vol] 16.1 g/dL Normal 13.0-17.0 [facility] Comment on above: Order Comment: Speci men Type: BLOOD SPECIMEN Ordering Facility: [facility] Address: [address] [place] [address] Performed By: #### 1 9123-9, LIPNF, , 2132-05 #### [facility] CLIA [id number] [address] [place] [address] [place] Immature granulocytes (Bld) [#/Vol] 10*3/uL Normal <0.10 [facility] Comment on above: Order Comment: Speci men Type: BLOOD SPECIMEN Ordering Facility: [facility] Address: [address] [place] [address] Performed By: #### 1 9123-9, LIPNF, , 2132-05 #### [facility] CLIA [id number] [address] [place] [address] [place] Immature granulocytes/100 WBC (Bld) 0.1 % Normal [facility] Comment on above: Order Comment: Speci men Type: BLOOD SPECIMEN Ordering Facility: [facility] Address: [address] [place] [address] Performed By: #### 1 9123-9, LIPNF, , 2132-05 #### [facility] CLIA [id number] [address] [place] [address] [place] Lymphocytes (Bld) [#/Vol] 2.02 10*3/uL Normal 1.00-4.00 [facility] Comment on above: Order Comment: Speci men Type: BLOOD SPECIMEN Ordering Facility: [facility] Address: [address] [place] [address] Performed By: #### 1 9123-9, LIPNF, , 2132-05 #### [facility] CLIA [id number] [address] [place] [address] [place] Lymphocytes/100 WBC (Bld) 29.8 % Normal [facility] Comment on above: Order Comment: Speci men Type: BLOOD SPECIMEN Ordering Facility: [facility] Address: [address] [place] [address] Performed By: #### 1 9123-9, LIPNF, , 2132-05 #### [facility] CLIA [id number] [address] [place] [address] [place] MCH (RBC) [Entitic mass] 28.3 pg Normal 26.0-34.0 [facility] Comment on above: Order Comment: Speci men Type: BLOOD SPECIMEN Ordering Facility: [facility] Address: [address] [place] [address] Performed By: #### 1 9123-9, LIPNF, , 2132-05 #### [facility] CLIA [id number] [address] [place] [address] [place] MCHC (RBC) [Mass/Vol] 32.2 g/dL Normal 30.5-36.0 [facility] Comment on above: Order Comment: Speci men Type: BLOOD SPECIMEN Ordering Facility: [facility] Address: [address] [place] [address] Performed By: #### 1 9123-9, LIPNF, , 2132-05 #### [facility] CLIA [id number] [address] [place] [address] [place] MCV (RBC) [Entitic vol] 88.0 fL Normal 80.0-100.0 [facility] Comment on above: Order Comment: Speci men Type: BLOOD SPECIMEN Ordering Facility: [facility] Address: [address] [place] [address] Performed By: #### 1 9123-9, LIPNF, , 2132-05 #### [facility] CLIA [id number] [address] [place] [address] [place] Monocytes (Bld) [#/Vol] 0.59 10*3/uL Normal <0.87 [facility] Comment on above: Order Comment: Speci men Type: BLOOD SPECIMEN Ordering Facility: [facility] Address: [address] [place] [address] Performed By: #### 1 9123-9, LIPNF, , 2132-05 #### [facility] CLIA [id number] [address] [place], [place] [address] [place] Monocytes/100 WBC (Bld) 8.7 % Normal [facility] Comment on above: Order Comment: Speci men Type: BLOOD SPECIMEN Ordering Facility: [facility] Address: [address] [place] [address] Performed By: #### 1 9123-9, LIPNF, , 2132-05 #### [facility] CLIA [id number] [address] [place] [address] [place] Neutrophils (Bld) [#/Vol] 3.73 10*3/uL Normal 1.45-7.50 [facility] Comment on above: Order Comment: Speci men Type: BLOOD SPECIMEN Ordering Facility: [facility] Address: [address] [place] [address] Performed By: #### 1 9123-9, LIPNF, , 2132-05 #### [facility] CLIA [id number] [address] [place] [address] [place] Neutrophils/100 WBC (Bld) 55.2 % Normal [facility] Comment on above: Order Comment: Speci men Type: BLOOD SPECIMEN Ordering Facility: [facility] Address: [address] [place], [place] [address] Performed By: #### 1 9123-9, LIPNF, , 2132-05 #### [facility] CLIA [id number] [address] [place] [address] [place] Nucleated RBC (Bld) [#/Vol] 10*3/uL Normal <0.01 [facility] Comment on above: Order Comment: Speci men Type: BLOOD SPECIMEN Ordering Facility: [facility] Address: [address] [place] [address] Performed By: #### 1 9123-9, LIPNF, , 2132-05 #### [facility] CLIA [id number] [address] [place] [address] [place] Nucleated RBC/100 WBC (Bld) [Ratio] 0.0 /100 WBC Normal [facility] Comment on above: Order Comment: Speci men Type: BLOOD SPECIMEN Ordering Facility: [facility] Address: [address] [place] [address] Performed By: #### 1 9123-9, LIPNF, , 2132-05 #### [facility] CLIA [id number] [address] [place] [address] [place] Platelet mean volume (Bld) [Entitic vol] 11.0 fL Normal 9.0-12.7 [facility] Comment on above: Order Comment: Speci men Type: BLOOD SPECIMEN Ordering Facility: [facility] Address: [address] [place] [address] Performed By: #### 1 9123-9, LIPNF, , 2132-05 #### [facility] CLIA [id number] [address] [place] [address] [place] Platelets (Bld) [#/Vol] 238 10*3/uL Normal 150-400 [facility] Comment on above: Order Comment: Speci men Type: BLOOD SPECIMEN Ordering Facility: [facility] Address: [address] [place] [address] Performed By: #### 1 9123-9, LIPNF, , 2132-05 #### [facility] CLIA [id number] [address] [place] [address] [place] RBC (Bld) [#/Vol] 5.68 10*6/uL Normal 4.20-6.00 [facility] Comment on above: Order Comment: Speci men Type: BLOOD SPECIMEN Ordering Facility: [facility] Address: [address] [place] [address] Performed By: #### 1 9123-9, LIPNF, , 2132-05 #### [facility] CLIA [id number] [address] [place] [address] [place] WBC (Bld) [#/Vol] 6.77 10*3/uL Normal 3.70-11.00 [facility] Comment on above: Order Comment: Speci men Type: BLOOD SPECIMEN Ordering Facility: [facility] Address: [address] [place] [address] Performed By: #### 1 9123-9, LIPNF, , 2132-05 #### [facility] CLIA [id number] [address] [place] [address] [place] CNOVon 05-26-2025 CNOV Office Visit (FAMPWS ) -- MICHAEL ALEXANDRA ([id number]) 1965 M Date Time Provider Department 05/26/25 1:00 PM ISRAEL SANTIAGO FAMPWS During your visit today, we recorded the following information about you: Pulse Respiration Blood pressure Weight 66/minute 16/minute 112/80 79.4 kg Height 1.721 m Israel Santiago MD 05/26/2025 1:54 PM Signed Chief Complaint Patient presents with: Well Adult HPI Michael Alexandra is a 59 year old male who presents here today for a Physical and chronic health issues. Patient with Hx of chronic pancreatitis, Elevated fasting blood sugar, GERD, Hyperlipidemia, Migraines as well as those reviewed and addressed below in ROS. Labs ordered to be completed today, but not done. HM - Anxiety/Depression screening negative. Michael reports increased abdominal pain over the past few months, describing difficulty distinguishing between gastric and pancreatic pain. He uses Bentyl as needed, occasionally up to twice daily, for abdominal discomfort and stress, prescribed by Dr. Pereira, whom he continues to see. He denies the need for a Bentyl refill at this time. He also takes Creon for pancreatic insufficiency and has been advised by Dr. Pereira that discontinuation is unlikely due to his pancreatic condition. He experiences occasional nausea and emesis, managed with antiemetic medication. He also reports occasional heartburn, usually controlled with omeprazole, but recently had a severe episode relieved by Tums. He denies significant diarrhea, hematochezia, hematuria, or changes in urinary frequency. He follows a gluten-free and oil-free diet due to celiac disease and notes that dairy products, particularly milk, seem to provide nutritional benefits without exacerbating symptoms. He denies recent fevers, frequent headaches, changes in hearing or vision, nasal or throat issues, neck lumps or swelling, wheezing, hemoptysis, chest pain, palpitations, or lower extremity edema. He reports no unusual muscle or joint aches, skin lesions, rashes, or sores, except for a recent case of poison flash that resolved slowly. He denies easy bruising, bleeding, changes in heat or cold tolerance, increased thirst, syncope, seizures, or tremors. He has not undergone any surgeries in the past year and is unaware of any new health issues in his blood relatives. He has three living brothers and one brother, Shalom, who from esophageal varices and had a history of colitis. His mother of colon cancer, and his father had a stroke and colitis. Another brother also has colitis. He has no living grandparents. He lives with his daughter and her family, including a 4-month-old grandson, while they build a house nearby. He enjoys spending time with his grandson and observing his daughter's parenting. Past medical history, appointments, medications, allergies reviewed. Previous Medical History PAST MEDICAL HISTORY Diagnosis Date Allergic rhinitis 11/05/2005 Anal fissure 01/22/2012 Celiac disease (HCC) 10/15/[address] 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 10/30 liver US normal; 11/01 CT: poss. 4mm liver cyst; 09/29 hepatitis serology A,B,C negative Pancreatic cyst (HCC) 05/23/2019 With Hx of pancreatitis will get US every 3 yrs. Next due 2020. Pancreatic insufficiency (HCC) 05/18/[address] Pereira Proteinuria 11/28/2016 Recheck 12/2016 was neg. Sphincter of Oddi dysfunction 2015 Syncope and collapse 12/2005 referral to [facility] Isaacs, neuro: diagnosed as vasovagal. EEG normal. Also 2D echo Normal; carotid duplex: 0-29% stenosis. CT WWO contrast brain: negative except left maxillary sinusitis; deviated septum, retention cyst Urinary calculus, unspecified Renal stones, multiple CT confirmations: at least seven occurrences. Stones: calcium oxalate/ calcium phospate. 24 urine: calcium, creatinine, Na normal; citrate low, uric acid and oxalate high Vitiligo (more content not included)... Normal [facility] Comprehensive metabolic 2000 panelon 05-26-2025 Albumin [Mass/Vol] 4.2 g/dL Normal 3.9-4.9 [facility] Comment on above: Order Comment: Speci men Type: BLOOD SPECIMEN Ordering Facility: [facility] Address: [address] [place] [address] Performed By: #### 1 9123-9, LIP, 09863-7, 2132-9 #### [facility] CLIA [id number] [address] [place] [address] [place] ALP [Catalytic activity/Vol] 79 U/L Normal 38-113 [facility] Comment on above: Order Comment: Speci men Type: BLOOD SPECIMEN Ordering Facility: [facility] Address: [address] [place] [address] Performed By: #### 1 9123-9, LIPNF, , 2132-05 #### [facility] CLIA [id number] [address] [place] [address] [place] ALT [Catalytic activity/Vol] 58 U/L High 10-54 [facility] Comment on above: Order Comment: Speci men Type: BLOOD SPECIMEN Ordering Facility: [facility] Address: [address] [place] [address] Performed By: #### 1 9123-9, LIPNF, , 2132-05 #### [facility] CLIA [id number] [address] [place] [address] [place] Anion gap [Moles/Vol] 14 mmol/L Normal 8-15 [facility] Comment on above: Order Comment: Speci men Type: BLOOD SPECIMEN Ordering Facility: [facility] Address: [address] [place] [address] Performed By: #### 1 9123-9, LIPNF, , 2132-05 #### [facility] CLIA [id number] [address] [place] [address] [place] AST [Catalytic activity/Vol] 44 U/L High 14-40 [facility] Comment on above: Order Comment: Speci men Type: BLOOD SPECIMEN Ordering Facility: [facility] Address: [address] [place] [address] Performed By: #### 1 9123-9, LIPNF, , 2132-05 #### [facility] CLIA [id number] [address] [place] [address] [place] Bilirubin [Mass/Vol] 0.6 mg/dL Normal 0.2-1.3 [facility] Comment on above: Order Comment: Speci men Type: BLOOD SPECIMEN Ordering Facility: [facility] Address: [address] [place] [address] Performed By: #### 1 9123-9, LIPNF, , 2132-05 #### [facility] CLIA [id number] [address] [place] [address] [place] Calcium [Mass/Vol] 9.2 mg/dL Normal 8.5-10.2 [facility] Comment on above: Order Comment: Speci men Type: BLOOD SPECIMEN Ordering Facility: [facility] Address: [address] [place] [address] Performed By: #### 1 9123-9, LIPNF, , 2132-05 #### [facility] CLIA [id number] [address] [place] [address] [place] Chloride [Moles/Vol] 105 mmol/L Normal 98-107 [facility] Comment on above: Order Comment: Speci men Type: BLOOD SPECIMEN Ordering Facility: [facility] Address: [address] [place] [address] Performed By: #### 1 9123-9, LIPNF, , 2132-05 #### [facility] CLIA [id number] [address] [place] [address] [place] CO2 [Moles/Vol] 22 mmol/L Normal 22-30 [facility] Comment on above: Order Comment: Speci men Type: BLOOD SPECIMEN Ordering Facility: [facility] Address: [address] [place] [address] Performed By: #### 1 9123-9, LIPNF, , 2132-05 #### [facility] CLIA [id number] [address] [place] [address] [place] Creatinine [Mass/Vol] 1.00 mg/dL Normal 0.73-1.22 [facility] Comment on above: Order Comment: Nancy kelly Type: BLOOD SPECIMEN Ordering Facility: [facility] Address: [address] [place] [address] Performed By: #### 1 9123-9, LIPLEMUEL, , 2132-05 #### [facility] CLIA [id number] [address] [place] [address] [place] eGFRcr SerPlBld CKD-EPI 2020 86 mL/min/1.73m??? Normal >=60 [facility] Comment on above: Order Comment: Nancy kelly Type: BLOOD SPECIMEN Ordering Facility: [facility] Address: [address] [place] [address] Result Comment: Tamy mated Glomerular Filtration Rate (eGFR) is calculated using the 2020 CKD-EPI creatinine equation. This equation utilizes serum creatinine, sex, and age as parameters. The creatinine assay has traceable calibration to isotope dilution-mass spectrometry. Refer to KDIGO guidelines for clinical interpretation. In patients with unstable renal function, e.g. those with acute kidney injury, the eGFR may not accurately reflect actual GFR. Performed By: #### 1 9123-9, LIPLEMUEL, , 2132-05 #### [facility] CLIA [id number] [address] [place] [address] [place] Glucose [Mass/Vol] 98 mg/dL Normal 74-99 [facility] Comment on above: Order Comment: Nancy kelly Type: BLOOD SPECIMEN Ordering Facility: [facility] Address: [address] [place] [address] Result Comment: The [place] [employer] (ADA) provides guidance for cutoff values for fasting glucose and random glucose. The ADA defines fasting as no caloric intake for at least 8 hours. Fasting plasma glucose results between 100 to 125 mg/dL indicate increased risk for diabetes (prediabetes). Fasting plasma glucose results greater than or equal to 126 mg/dL meet the criteria for diagnosis of diabetes. In the absence of unequivocal hyperglycemia, results should be confirmed by repeat testing. In a patient with classic symptoms of hyperglycemia or hyperglycemic crisis, random plasma glucose results greater than or equal to 200 mg/dL meet the criteria for diagnosis of diabetes. Reference: Standards of Medical Care in Diabetes 2016, [place] [employer]. Diabetes Care. 2016.39(Suppl 1). Performed By: #### 1 9123-9, LIPNF, 56079-7, 2132-05 #### [facility] CLIA [id number] [address] [place] [address] [place] Potassium [Moles/Vol] 4.8 mmol/L Normal 3.7-5.1 [facility] Comment on above: Order Comment: Nancy kelly Type: BLOOD SPECIMEN Ordering Facility: [facility] Address: [address] [place] [address] Performed By: #### 1 91239, LIPNF, , 2132-05 #### [facility] CLIA [id number] [address] [place] [address] [place] Protein [Mass/Vol] 6.8 g/dL Normal 6.3-8.0 [facility] Comment on above: Order Comment: Nancy kelly Type: BLOOD SPECIMEN Ordering Facility: [facility] Address: [address] [place] [address] Performed By: #### 1 91239, LIPNF, , 2132-05 #### [facility] CLIA [id number] [address] [place] [address] [place] Sodium [Moles/Vol] 141 mmol/L Normal 136-144 [facility] Comment on above: Order Comment: Isacci leticia Type: BLOOD SPECIMEN Ordering Facility: [facility] Address: [address] [place] [address] Performed By: #### 1 9123-9, LIPNF, , 2132-05 #### [facility] CLIA [id number] [address] [place], [place] [address] [place] Urea nitrogen [Mass/Vol] 14 mg/dL Normal 9-24 [facility] Comment on above: Order Comment: Nancy kelly Type: BLOOD SPECIMEN Ordering Facility: [facility] Address: [address] [place] [address] Performed By: #### 1 9123-9, LIPNF, 59623-6, 2132-9 #### [facility] CLIA [id number] [address] [place] [address] [place] HbA1c (Bld)on 05-26-2025 Average glucose Estimated from glycated hemoglobin (Bld) [Mass/Vol] 137 mg/dL Normal [facility] Comment on above: Order Comment: Nancy kelly Type: BLOOD SPECIMEN Ordering Facility: [facility] Address: [address] [place] [address] Result Comment: eAG: (Estimated average glucose) is a calculated value from HgbA1c and is new accounts banking representative of the average blood glucose level in the last 2-3 month period. Performed By: #### 5 5454-3 #### [facility] CLIA [id number] [address] [place] [address] [place] HbA1c (Bld) [Mass fraction] 6.4 % High 4.3-5.6 [facility] Comment on above: Order Comment: Nancy kelly Type: BLOOD SPECIMEN Ordering Facility: [facility] Address: [address] [place] [address] Result Comment: Amer ican Diabetes Association guidelines indicate that patients with HgbA1c in the range 5.7-6.4% are at increased risk for development of diabetes, and intervention by lifestyle modification may be beneficial. HgbA1c greater or equal to 6.5% is considered diagnostic of diabetes. Performed By: #### 5 5454-3 #### [facility] CLIA [id number] [address] [place], [place] [address] [place] LIPID PANEL, NONFASTINGon Cholesterol [Mass/Vol] 143 mg/dL Normal <200 [facility] Comment on above: Order Comment: Speci men Type: BLOOD SPECIMEN Ordering Facility: [facility] Address: [address] [place] [address] Result Comment: <200 mg/dL, Desirable 200-239 mg/dL, Borderline high >239 mg/dL, High Performed By: #### 1 9123-9, LIPNF, , 2132-05 #### [facility] CLIA [id number] [address] [place] [address] [place] HDL CHOLESTEROL, NF 34 mg/dL Low >39 [facility] Comment on above: Order Comment: Speci men Type: BLOOD SPECIMEN Ordering Facility: [facility] Address: [address] [place] [address] Result Comment: 40-5 9 mg/dL, Acceptable >59 mg/dL, High: Negative risk factor for coronary heart disease <40 mg/dL, Low: Positive risk factor for coronary heart disease Performed By: #### 1 9123-9, LIPNF, , 2132-05 #### [facility] CLIA [id number] [address] [place] [address] [place] LDL CHOLESTEROL CALCULATED, NF 78 mg/dL Normal <100 [facility] Comment on above: Order Comment: Speci men Type: BLOOD SPECIMEN Ordering Facility: [facility] Address: [address] [place] [address] Result Comment: <100 mg/dL, Optimal 100-129 mg/dL, Near optimal/above optimal 130-159 mg/dL, Borderline high 160-189 mg/dL, High >189 mg/dL, Very high Secondary prevention optimal LDL Cholesterol levels are recommended to be <70 mg/dL LDL cholesterol is calculated using the Rollins-NIH equation. Performed By: #### 1 9123-9, LIPNF, , 2132-05 #### [facility] CLIA [id number] [address] [place] [address] [place] LDL/HDL RATIO, NF 2.29 mg/dL Normal <2.54 [facility] Comment on above: Order Comment: Speci men Type: BLOOD SPECIMEN Ordering Facility: [facility] Address: [address] [place] [address] Result Comment: Kathryn guillen: 1. National Cholesterol Education Program ATP III Guideline At-A-Glance Quick Desk Reference: National Heart, Lung, and Blood [place]. National Institutes of Health. 2001: NIH Publication No. 01-3305. 2. An International Atherosclerosis Society position paper: global recommendations for the management of dyslipidemia: executive summary, Atherosclerosis. 2014: 232(2):410-413. Performed By: #### 1 9123-9, LIPNF, , 2132-05 #### [facility] CLIA [id number] [address] [place] [address] [place] NON HDL CHOL, NF 109 mg/dL Normal <130 [facility] Comment on above: Order Comment: Nancy leticia Type: BLOOD SPECIMEN Ordering Facility: [facility] Address: [address] [place] [address] Result Comment: <130 mg/dL, Optimal 130-159 mg/dL, Near optimal/above optimal 160-189 mg/dL, Borderline high 190-219 mg/dL, High >219 mg/dL, Very high Secondary prevention optimal non HDL Cholesterol levels are recommended to be <100 mg/dL Performed By: #### 1 23-9, LIPNF, , 2132-05 #### [facility] CLIA [id number] [address] [place] [address] [place] T CHOL/HDL RATIO NF 4.21 mg/dL Normal <5.10 [facility] Comment on above: Order Comment: Nancy leticia Type: BLOOD SPECIMEN Ordering Facility: [facility] Address: [address] [place] [address] Performed By: #### 1 9123-9, LIPNF, , 2132-05 #### [facility] CLIA [id number] [address] [place], [place] [address] [place] TRIGLYCERIDES, NF 184 mg/dL High <150 [facility] Comment on above: Order Comment: Speci men Type: BLOOD SPECIMEN Ordering Facility: [facility] Address: [address] [place] [address] Result Comment: <150 mg/dL, Normal 150-199 mg/dL, Borderline high 200-499 mg/dL, High >499 mg/dL, Very high Performed By: #### 1 9123-9, LIPNF, 48353-7, 2132-05 #### [facility] CLIA [id number] [address] [place] [address] [place] VLDL CHOLESTEROL, NF 28 mg/dL Normal <30 [facility] Comment on above: Order Comment: Speci men Type: BLOOD SPECIMEN Ordering Facility: [facility] Address: [address] [place] [address] Performed By: #### 1 9123-9, LIPNF, 07909-3, 2132-05 #### [facility] CLIA [id number] [address] [place] [address] [place] Magnesium SerPl-mCncon 05-26 Magnesium [Mass/Vol] 2.3 mg/dL Normal 1.7-2.3 [facility] Comment on above: Order Comment: Speci men Type: BLOOD SPECIMEN Ordering Facility: [facility] Address: [address] [place] [address] Performed By: #### 1 9123-9, LIPNF, , 2132-05 #### [facility] CLIA [id number] [address] [place] [address] [place] PSA SerPl-mCncon 05-26-2025 Prostate specific Ag [Mass/Vol] 2.76 ng/mL High <2.60 [facility] Comment on above: Order Comment: Speci men Type: BLOOD SPECIMEN Ordering Facility: [facility] Address: [address] [place] [address] Result Comment: Tota l PSA test methodology used is the Electrochemiluminescence Immunoassay by [employer]. Total PSA values by differing methodologies cannot be interchanged. For an individual patient, the significance of a PSA level should be interpreted in a broad clinical context, including age, race, family history, digital rectal exam, prostate size, results of prior testing (prostate biopsy, free PSA, PCA3), and use of 5-alpha reductase inhibitors. Considering the high incidence of asymptomatic cancer in the general population that may not pose an ultimate risk to a patient, the decision to recommend urological evaluation or prostate biopsy should be individualized after consideration of all these factors. REFERENCE: Juli Rodriguez M.D., M.P.H., Pee Ortiz M.D., Ph.D., Shalom De Luna M.D., Mile Mccallum, M.P.H., Evelia Hutson Sc.D. Effect of Verification Bias on Screening for Prostate Cancer by Measurement of Prostatic Specific Antigen. N Engl J Med 2003,349:335-42. Performed By: #### 2 857-1 #### [facility] CLIA [id number] [address] [place] [address] [place] Urinalysis complete panel (U )on 05-26-2025 Bacteria LM.HPF (Urine sed) [#/Area] Negative Normal Negative [facility] Comment on above: Order Comment: Speci men Type: BLOOD SPECIMEN Ordering Facility: [facility] Address: [address] [place] [address] Performed By: #### 1 9123-9, LIPNF, , 2132-05 #### [facility] CLIA [id number] [address] [place] [address] [place] Bilirubin Ql (U) Negative Normal Negative [facility] Comment on above: Order Comment: Speci men Type: BLOOD SPECIMEN Ordering Facility: [facility] Address: [address] [place] [address] Performed By: #### 1 9123-9, LIPNF, , 2132-05 #### [facility] CLIA [id number] [address] [id number] [address] [place] Clarity (Unsp spec) Clear Normal Clear [facility] Comment on above: Order Comment: Speci men Type: BLOOD SPECIMEN Ordering Facility: [facility] Address: [address] [place] [address] Performed By: #### 1 9123-9, LIPNF, , 2132-05 #### [facility] CLIA [id number] [address] [place] [address] [place] Color (U) Yellow Normal Yellow [facility] Comment on above: Order Comment: Speci men Type: BLOOD SPECIMEN Ordering Facility: [facility] Address: [address] [place] [address] Performed By: #### 1 9123-9, LIPNF, , 2132-05 #### [facility] CLIA [id number] [address] [place] [address] [place] Epithelial cells LM.HPF (Urine sed) [#/Area] None Seen Normal [facility] Comment on above: Order Comment: Speci men Type: BLOOD SPECIMEN Ordering Facility: [facility] Address: [address] [place] [address] Performed By: #### 1 9123-9, LIPNF, , 2132-05 #### [facility] CLIA [id number] [address] [place] [address] [place] Glucose Test strip (U) [Mass/Vol] Trace Abnormal Negative [facility] Comment on above: Order Comment: Speci men Type: BLOOD SPECIMEN Ordering Facility: [facility] Address: [address] [place] [address] Performed By: #### 1 9123-9, LIPNF, , 2132-05 #### [facility] CLIA [id number] [address] [place] [address] [place] Hemoglobin Ql (U) Negative Normal Negative [facility] Comment on above: Order Comment: Speci men Type: BLOOD SPECIMEN Ordering Facility: [facility] Address: [address] [place] [address] Performed By: #### 1 23-9, LIPNF, , 2132-05 #### [facility] CLIA [id number] [address] [place] [address] [place] Hyaline casts (Urine sed) [#/Area] 0 /[LPF] Normal 0 /LPF [facility] Comment on above: Order Comment: Speci men Type: BLOOD SPECIMEN Ordering Facility: [facility] Address: [address] [place] [address] Performed By: #### 1 91-9, LIPNF, , 2132-05 #### [facility] CLIA [id number] [address] [place] [address] [place] Ketones Ql (U) Negative Normal Negative [facility] Comment on above: Order Comment: Speci men Type: BLOOD SPECIMEN Ordering Facility: [facility] Address: [address] [place] [address] Performed By: #### 1 23-9, LIPNF, , 2132-05 #### [facility] CLIA [id number] [address] [place] [address] [place] Leukocyte esterase Test strip Ql (U) Negative Normal Negative [facility] Comment on above: Order Comment: Speci men Type: BLOOD SPECIMEN Ordering Facility: [facility] Address: [address] [place] [address] Performed By: #### 1 23-9, LIPNF, , 2132-05 #### [facility] CLIA [id number] [address] [place] [address] [place] Nitrite Ql (U) Negative Normal Negative [facility] Comment on above: Order Comment: Speci men Type: BLOOD SPECIMEN Ordering Facility: [facility] Address: [address] [place] [address] Performed By: #### 1 9123-9, LIPNF, 76244-4, 2132-05 #### [facility] CLIA [id number] [address] [place] [address] [place] pH (U) 5.5 [pH] Normal 5.0-8.0 [facility] Comment on above: Order Comment: Speci men Type: BLOOD SPECIMEN Ordering Facility: [facility] Address: [address] [place] [address] Performed By: #### 1 9123-9, LIPNF, 83554-4, 2132-05 #### [facility] CLIA [id number] [address] [place] [address] [place] Protein (U) [Mass/Vol] Negative Normal Negative [facility] Comment on above: Order Comment: Speci men Type: BLOOD SPECIMEN Ordering Facility: [facility] Address: [address] [place] [address] Performed By: #### 1 9123-9, LIPNF, , 2132-05 #### [facility] CLIA [id number] [address] [place] [address] [place] RBC LM.HPF (Urine sed) [#/Area] 0-2 /HPF Normal 0-2 /HPF [facility] Comment on above: Order Comment: Speci men Type: BLOOD SPECIMEN Ordering Facility: [facility] Address: [address] [place] [address] Performed By: #### 1 9123-9, LIPNF, , 2132-05 #### [facility] CLIA [id number] [address] [place] [address] [place] Specific gravity (U) [Rel density] 1.018 Normal 1.005-1.030 [facility] Comment on above: Order Comment: Speci men Type: BLOOD SPECIMEN Ordering Facility: [facility] Address: [address] [place] [address] Performed By: #### 1 9123-9, LIPNF, , 2132-05 #### [facility] CLIA [id number] [address] [place] [address] [place] Urobilinogen Ql (U) 0.2 EU/dL Normal 0.2-1.0 EU/dL [facility] Comment on above: Order Comment: Speci men Type: BLOOD SPECIMEN Ordering Facility: [facility] Address: [address] [place] [address] Performed By: #### 1 9123-9, LIPNF, , 2132-05 #### [facility] CLIA [id number] [address] [place] [address] [place] WBC LM.HPF (Urine sed) [#/Area] 0-5 /HPF Normal 0-5 /HPF [facility] Comment on above: Order Comment: Speci men Type: BLOOD SPECIMEN Ordering Facility: [facility] Address: [address] [place] [address] Performed By: #### 1 9123-9, LIPNF, , 2132-05 #### [facility] CLIA [id number] [address] [place] [address] [place] Vit B12 SerPl-ncon 08-29-2 025 Cobalamin (Vitamin B12) [Mass/Vol] 1020 pg/mL Normal 232-1245 [facility] Comment on above: Order Comment: Speci men Type: BLOOD SPECIMEN Ordering Facility: [facility] Address: [address] [place] [address] Performed By: #### 1 9123-9, LIPNF, , 2132-05 #### [facility] CLIA [id number] [address] [place] [address] [place] CNOVon 11-23-2024 CNOV Office Visit (FAMPWS ) -- MICHAEL ALEXANDRA ([id number]) 1965 M Date Time Provider Department 11/23/24 2:00 PM ISRAEL SANTIAGO During your visit today, we recorded the following information about you: Pulse Respiration Blood pressure Weight 72/minute 16/minute 120/78 80.7 kg Israel Santiago MD 11/23/2024 8:24 PM Signed Chief Complaint Patient presents with: F/U 6 months HPI Michael Alexandra is a 59 year old male who presents here today for 6 month follow up. Patient with Hx of Chronic pancreatitis, elevated fasting blood sugar, GERD, hyperlipidemia, Migraines as well as those reviewed and addresed below and in ROS. Patient sees Dr. Pereira. He is back on bentyl Patient has been doing ok. Has not been having the pancreatic flares as often. Past medical history, appointments, medications, allergies reviewed. Previous Medical History PAST MEDICAL HISTORY Diagnosis Date Allergic rhinitis 11/05/2005 Anal fissure 01/22/2012 Celiac disease 10/15/[address] 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 10/30 liver US normal; 11/01 CT: poss. 4mm liver cyst; 09/29 hepatitis serology A,B,C negative Pancreatic cyst 05/23/2019 With Hx of pancreatitis will get US every 3 yrs. Next due 2020. Pancreatic insufficiency 05/18/[address] Pereira Proteinuria 11/28/2016 Recheck 12/2016 was neg. Sphincter of Oddi dysfunction 2015 Syncope and collapse 12/2005 referral to [facility] Isaacs, neuro: diagnosed as [...] Medication Sig atorvastatin (LIPITOR) 10 mg tablet TAKE 1 TABLET DAILY AT BEDTIME FOR CHOLESTEROL aajjqu-qyhufugg-lfhqmrk (CREON) 36,000-114,000- 180,000 unit delayed release capsule Take 3 capsules by mouth three times a day with meals. oxyCODONE IR (ROXICODONE) 5 mg immediate release tablet Take 1 tablet by mouth every 8 hours as needed for pain for up to 7 days. This is for recurrent pancreatitis outbreaks. propranolol ER (INDERAL LA) 80 mg 24 hr capsule Take 1 capsule by mouth once daily. omeprazole (PRILOSEC) 20 mg capsule Take 1 capsule by mouth once daily. dicyclomine (BENTYL) 10 mg capsule TAKE 1 CAPSULE BY MOUTH 2 TIMES A DAY NEEDED FOR ABDOMINAL PAIN. MAY TAKE AN ADDITIONAL CAPSULE NEEDED. (more content not included)... Normal [facility] HbA1c (Bld)on 11-23-2024 Average glucose Estimated from glycated hemoglobin (Bld) [Mass/Vol] 140 mg/dL Normal [facility] Comment on above: Order Comment: Nancy kelly Type: BLOOD SPECIMEN Ordering Facility: [facility] Address: [address] [place] [address] Result Comment: eAG: (Estimated average glucose) is a calculated value from HgbA1c and is new accounts banking representative of the average blood glucose level in the last 2-3 month period. Performed By: #### 5 5454-3 #### [facility] CLIA [id number] [address] [place] [address] [place] HbA1c (Bld) [Mass fraction] 6.5 % High 4.3-5.6 [facility] Comment on above: Order Comment: Nancy kelly Type: BLOOD SPECIMEN Ordering Facility: [facility] Address: [address] [place] [address] Result Comment: Amer ican Diabetes Association guidelines indicate that patients with HgbA1c in the range 5.7-6.4% are at increased risk for development of diabetes, and intervention by lifestyle modification may be beneficial. HgbA1c greater or equal to 6.5% is considered diagnostic of diabetes. Performed By: #### 5 5454-3 #### [facility] CLIA [id number] [address] [place] [address] [place] LIPID PANEL, NONFASTINGon Cholesterol [Mass/Vol] 147 mg/dL NINF - 200 mg/dL [facility] Comment on above: <200 mg/dL, Desirabl e 200-239 mg/dL, Borderline high >239 mg/dL, High HDL Cholesterol, Nonfasting 38 mg/dL Low 39 - PINF mg/dL [facility] Comment on above: 40-59 mg/dL, Accepta ble >59 mg/dL, High: Negative risk factor for coronary heart disease <40 mg/dL, Low: Positive risk factor for coronary heart disease Interpretation and review of laboratory results Abnormal [facility] LDL Cholesterol, Nonfasting 76 mg/dL NINF - 100 mg/dL [facility] Comment on above: <100 mg/dL, Optimal 100-129 mg/dL, Near optimal/above optimal 130-159 mg/dL, Borderline high 160-189 mg/dL, High >189 mg/dL, Very high Secondary prevention optimal LDL Cholesterol levels are recommended to be < 70 mg/dL LDL/HDL Ratio, Nonfasting 2 mg/dL NINF - 2.54 mg/dL [facility] Comment on above: Reference: 1. National Cholesterol Education Program ATP III Guideline At-A-Glance Quick Desk Reference: National Heart, Lung, and Blood [place]. National Institutes of Health. 2001: NIH Publication No. 01-3305. 2. An International Atherosclerosis Society position paper: global recommendations for the management of dyslipidemia: executive summary, Atherosclerosis. 2014: 232(2):410-413. Non HDL Cholesterol, Nonfasting 109 mg/dL NINF - 130 mg/dL [facility] Comment on above: <130 mg/dL, Optimal 130-159 mg/dL, Near optimal/above optimal 160-189 mg/dL, Borderline high 190-219 mg/dL, High >219 mg/dL, Very high Secondary prevention optimal non HDL Cholesterol levels are recommended to be <100 mg/dL Total Chol/HDL Ratio, Nonfasting 3.87 mg/dL NINF - 5.10 mg/dL [facility] Triglycerides, Nonfasting 166 mg/dL High NINF - 150 mg/dL [facility] Comment on above: <150 mg/dL, Normal 150-199 mg/dL, Borderline high 200-499 mg/dL, High >499 mg/dL, Very high VLDL Cholesterol, Nonfasting 33 mg/dL High NINF - 30 mg/dL [facility] Cholesterol [Mass/Vol] 147 mg/dL Normal <200 [facility] Comment on above: Order Comment: Speci men Type: BLOOD SPECIMEN Ordering Facility: [facility] Address: [address] [place] [address] Result Comment: <200 mg/dL, Desirable 200-239 mg/dL, Borderline high >239 mg/dL, High Performed By: #### 1 9123-9, LIPNF, 50775-0, 2132-05 #### [facility] CLIA [id number] [address] [place] [address] [place] HDL CHOLESTEROL, NF 38 mg/dL Low >39 [facility] Comment on above: Order Comment: Speci men Type: BLOOD SPECIMEN Ordering Facility: [facility] Address: [address] [place] [address] Result Comment: 40-5 9 mg/dL, Acceptable >59 mg/dL, High: Negative risk factor for coronary heart disease <40 mg/dL, Low: Positive risk factor for coronary heart disease Performed By: #### 1 9123-9, LIPNF, , 2132-05 #### [facility] CLIA [id number] [address] [place] [address] [place] LDL CHOLESTEROL, NF 76 mg/dL Normal <100 [facility] Comment on above: Order Comment: Speci men Type: BLOOD SPECIMEN Ordering Facility: [facility] Address: [address] [place] [address] Result Comment: <100 mg/dL, Optimal 100-129 mg/dL, Near optimal/above optimal 130-159 mg/dL, Borderline high 160-189 mg/dL, High >189 mg/dL, Very high Secondary prevention optimal LDL Cholesterol levels are recommended to be < 70 mg/dL Performed By: #### 1 9123-9, LIPNF, , 2132-05 #### [facility] CLIA [id number] [address] [place] [address] [place] LDL/HDL RATIO, NF 2.00 mg/dL Normal <2.54 [facility] Comment on above: Order Comment: Speci men Type: BLOOD SPECIMEN Ordering Facility: [facility] Address: [address] [place] [address] Result Comment: Kathryn guillen: 1. National Cholesterol Education Program ATP III Guideline At-A-Glance Quick Desk Reference: National Heart, Lung, and Blood [place]. National Institutes of Health. 2001: NIH Publication No. 01-3305. 2. An International Atherosclerosis Society position paper: global recommendations for the management of dyslipidemia: executive summary, Atherosclerosis. 2014: 232(2):410-413. Performed By: #### 1 23-9, LIPNF, , 2132-05 #### [facility] CLIA [id number] [address] [place] [address] [place] NON HDL CHOL, NF 109 mg/dL Normal <130 [facility] Comment on above: Order Comment: Isacci men Type: BLOOD SPECIMEN Ordering Facility: [facility] Address: [address] [place] [address] Result Comment: <130 mg/dL, Optimal 130-159 mg/dL, Near optimal/above optimal 160-189 mg/dL, Borderline high 190-219 mg/dL, High >219 mg/dL, Very high Secondary prevention optimal non HDL Cholesterol levels are recommended to be <100 mg/dL Performed By: #### 1 23-9, LIPNF, , 2132-05 #### [facility] CLIA [id number] [address] [place] [address] [place] T CHOL/HDL RATIO NF 3.87 mg/dL Normal <5.10 [facility] Comment on above: Order Comment: Speci men Type: BLOOD SPECIMEN Ordering Facility: [facility] Address: [address] [place] [address] Performed By: #### 1 9123-9, LIPNF, , 2132-05 #### [facility] CLIA [id number] [address] [place] [address] [place] TRIGLYCERIDES, NF 166 mg/dL High <150 [facility] Comment on above: Order Comment: Speci men Type: BLOOD SPECIMEN Ordering Facility: [facility] Address: [address] [place] [address] Result Comment: <150 mg/dL, Normal 150-199 mg/dL, Borderline high 200-499 mg/dL, High >499 mg/dL, Very high Performed By: #### 1 9123-9, LIPNF, 95751-3, 2132-9 #### [facility] CLIA [id number] [address] [place] [address] [place] VLDL CHOLESTEROL, NF 33 mg/dL High <30 [facility] Comment on above: Order Comment: Speclonnie men Type: BLOOD SPECIMEN Ordering Facility: [facility] Address: [address] [place] [address] Performed By: #### 1 9123-9, LIPNF, 18448-9, 2131-9 #### [facility] CLIA [id number] [address] [place] [address] [place] Gastroenterology Visit Repor ton 11-18-2024 Gastroenterology Visit Report [facility] Gastroenterology [address] [facility] [place] [id number] OFFICE VISIT Date of Service: 11/18/24 MR#: [id number] Acct: [id number] Name: MICHAEL ALEXANDRA Rep #: [id number] : 1965 Provider: Epifanio Pereira DO Age/Sex: 59/M Location: [facility] Status: Signed Intake Vital Signs 07/20/23 10:01 Height 5 ft 8 in Intake Visit Reasons: 6 M FU Allergies divalproex sodium (From Depakote) Allergy (Intermediate, Verified 07/20/23 09:58) pancreatitis topiramate (From Topamax) Allergy (Intermediate, Verified 07/20/23 09:58) Renal stones Penicillins Allergy (Verified 07/20/23 09:58) Swelling tetanus and diphtheria toxoids (Tetanus Diphtheria Toxoid) Allergy (Verified 07/20/23 09:58) Swelling Medications ???Medication ???Instructions ???Recorded ???Confirmed ???Type omeprazole 20 mg capsule,delayed 20 mg PO DAILY 06/06/14 11/18/24 H istory release propranolol 80 mg tablet 80 mg PO DAILY 06/06/14 11/18/24 H istory oxycodone 5 mg tablet 5 - 10 mg (1 - 2 x 5 mg) PO Q4H 11/18/24 Rx PRN PRN PAIN #40 TABLETS promethazine 25 mg tablet 12.5 - 25 mg (0.5 - 1 x 25 mg) PO 07/25/15 11/18/24 Rx Q4H PRN PRN Nausea #20 TABLETS atorvastatin 10 mg tablet 10 mg PO QHS 04/29/22 11/18/24 His tory bajvrd-seilekmw-wcubmjz 3 cap PO TID 04/29/22 11/18/24 His tory 36,000-114,000-180,000 unit capsule,delay rel (Creon) sumatriptan succinate 6 mg/0.5 mL 6 mg subcut Q1-4H PRN migraine 11/18/24 History subcutaneous pen injector headache dicyclomine 10 mg capsule 10 mg PO BID PRN abdominal pain 30 09/19/24 11/18/24 Rx days #90 caps PFSH Medical History Abnormal LFTs Allergic rhinitis Anal fissure Chronic pancreatitis Deviated septum Diaphragmatic hernia without mention of obstruction or gangrene Elevated fasting blood sugar Former smoker GERD (gastroesophageal reflux disease) High cholesterol History of renal stone Migraine headache Mixed hyperlipidemia Myopathy Pancreatic cyst Spasm of sphincter of Oddi Syncope Wears glasses Wears partial dentures Surgical History H/O colectomy History of cholecystectomy Family History Mother , Colon cancer mets to liver Colon cancer Father TIA (transient ischemic attack) Colitis Brother Colitis Esophageal rupture Social History Smoking Status: Former smoker alcohol intake: never HPI HPI Details: MICHAEL ALEXANDRA, is a 59 M who presents to the office today for follow up. FH colon cancer with mets to liver mother with age 52; father colitis; brother colitis with r/t esophageal vessel rupture. ??? Prior workup: MRI abd 06.11.18???OSH with degradation of exam r/t motion. Distal pancreatic cyst 3mm. Hepatic subcentimeter cysts noted with right lobe, steatosis. ??? *BGI established 07.14.22 with history of idiopathic chronic pancreatitis and previously diagnosed sphincter Oddi dysfunction by Dr. Pitts [facility]. Utilizes Creon 36k 2 tabs with meals to manage pancreatitis; increased approximately a year prior and aided in reducing frequency. Feels he is doing overall well but has issues several times a month with LUQ abdominal pain radiating into back, increased flatulence; symptoms previously lasted approximately a day but have since been lasting longer. Previous doctor prescribed PRN oxycodone for the pain which was helpful and will follow a clear liquid diet. GERD and issue which is managed with Prilosec 20mg QD. ?Biochem ical???CRP,???ANCA,???amyl ase, CMP (ALT H69), lipase,???ESR,???GAME, ALBINA without pertinent abnormality. LDH H247, Celiac +, tiss transglutaminase H39 Stool testing C.Difficile (cancelled), enteric pathogen, lactoferrin WNL. Ova/parasites and giardia not run. Calprotectin H166, Elastase L183, total fats increased Contact 07.18.22 to discuss results. ?CT abd/pel 07.23.22???with findings suggestive of jejunal enteritis and moderate colonic gas and stool burden. OV 1 suspect celiac disease-causing EPI resulting in pancreatitis, though there is possibility of chronic pancreatitis not related to celiac disease. Perform blood/stool testing after 3 months of gluten free. OV 01.12.23 Feels he is doing well since going gluten free; will continue to have intermittent bloating and pain that he can trace to foods. 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 ?Biochem ical???ESR, CRP WNL. ? Celiac +, tiss tr (more content not included)... [facility] ([facility]) -- MICHAEL ALEXANDRA ([id number]) 1965 M Date Time Provider Department 05/19/24 [facility] During your visit today, we recorded the following information about you: Israel Santiago MD 05/19/2024 9:17 AM Signed Let patient know his A1c is 6.4% down from 6.5%. cont to work on reduced carbs, sweets, sugars and starches to avoid becoming diabetic. Lipid panel showed Trigs elevated at 317 (goal<150 and were 146), HDL is low at 34 (goal>40 and was 37), LDL is ok at 91. Working on reduced fat in diet and walking for exercise can help improve the Trigs and HDL. Electrolytes, kidney and liver functions, CBC, B12, prostate lab, CBC and UA were all ok. Dede Rosado MA 05/19/2024 9:24 AM Signed Pt informed, verbalized understanding Dede Rosado MA Allergies As of Date: 05/19/2024 Noted Allergy Reaction PENICILLINS 11/05/2005 7 - Swelling 12 - Shortness of Breath DEPAKOTE (DIVALPROEX SODIUM) 2015 14 - Other: See Comments Comments: pancreatitis TETANUS VACCINES AND TOXOID 11/05/2005 7 - Swelling TOPAMAX (TOPIRAMATE) 2015 14 - Other: See Comments Comments: Renal stones Date Reviewed: 05/18/2024 Reviewed by: Israel Santiago MD - Fully Assessed Reason for Visit: Results [95] Prescriptions as of 05/19/2024 - lqzmsm-cdffityj-csviqij (CREON) 36,000-114,000- 180,000 unit delayed release capsule Take 3 capsules by mouth three times a day with meals. - oxyCODONE IR (ROXICODONE) 5 mg immediate release tablet Take 1 tablet by mouth every 8 hours as needed for pain for up to 7 days. This is for recurrent pancreatitis outbreaks. - propranolol ER (INDERAL LA) 80 mg 24 hr capsule Take 1 capsule by mouth once daily. - omeprazole (PRILOSEC) 20 mg capsule Take 1 capsule by mouth once daily. - atorvastatin (LIPITOR) 10 mg tablet TAKE 1 TABLET DAILY AT BEDTIME FOR CHOLESTEROL - dicyclomine (BENTYL) 10 mg capsule TAKE 1 CAPSULE BY MOUTH 2 TIMES A DAY NEEDED FOR ABDOMINAL PAIN. MAY TAKE AN ADDITIONAL CAPSULE NEEDED. - hyoscyamine (LEVSIN) 0.125 mg tablet Take 1 tablet by mouth twice daily. - promethazine (PHENERGAN) 12.5 mg tablet Take 1 tablet by mouth every 6 hours as needed. - SUMAtriptan Succinate 6 mg/0.5 mL crtg Inject 6 mg subcutaneously. As needed for migraine. May repeat after 1 hour if needed. No more than 2 doses in 24 hours. Problem List As Of Date 05/19/2024 Noted Resolved Allergic rhinitis [J30.9] 11/05/2005 Mixed hyperlipidemia [E78.2] Nonspecific abnormal results of liver function * Deviated nasal septum [J34.2] Urinary calculus, unspecified [N20.9] Diaphragmatic hernia without mention of obstruc*10/05/2007 Anal fissure [K60.2] 01/22/2012 Sphincter of Oddi dysfunction [K83.4] 2015 Vitiligo [L80] 11/08/2015 Gastroesophageal reflux disease without esophag*11/08/2015 Migraine without aura and without status migrai*11/08/2015 Prostate cancer screening [Z12.5] 11/08/2015 Well adult exam [Z00.00] 11/10/2016 Colon cancer screening [Z12.11] 11/10/2016 Proteinuria [R80.9] 11/28/2016 Idiopathic chronic pancreatitis (HCC) [K86.1] 05/12/2017 Elevated hemoglobin A1c [R73.09] 11/13/2017 Pancreatic cyst [K86.2] 05/23/2019 Medication management [Z79.899] 09/12/2020 Ex-smoker [Z87.891] 03/27/2021 Celiac disease [K90.0] 10/15/2022 Pancreatic insufficiency [K86.89] 05/18/2024 Encounter Status:Closed by DEDE ROSADO on 05/19/24 [facility] 11-19-2023 [facility] Telephone ([facility]) -- MICHAEL ALEXANDRA ( ) 1965 M Date Time Provider Department 11/19/23 [facility] During your visit today, we recorded the following information about you: Israel Santiago MD 11/19/2023 10:14 AM Signed Let patient know his A1c is 6.5% which could be technically be diagnosed as diabetic. I want to wait for his next A1c and if still 6.5% or higher then he will be considered diabetic which would be due to his pancrease issues. Advise working on less carbs, sweet's, sugars and starches in diet. His other labs were ok. Isaac Mora LPN 11/19/2023 10:20 AM Signed Left message for pt to contact office. CAITY Duran M Robin, RN 11/19/2023 1:33 PM Signed Pt returned call and given provider's message below with verbalized understanding. Allergies As of Date: 11/19/2023 Noted Allergy Reaction PENICILLINS 11/05/2005 7 - Swelling 12 - Shortness of Breath DEPAKOTE (DIVALPROEX SODIUM) 2015 14 - Other: See Comments Comments: pancreatitis TETANUS VACCINES AND TOXOID 11/05/2005 7 - Swelling TOPAMAX (TOPIRAMATE) 2015 14 - Other: See Comments Comments: Renal stones Date Reviewed: 11/18/2023 Reviewed by: Israel Santiago MD - Fully Assessed Reason for Visit: Results [95] Prescriptions as of 11/19/2023 - oxyCODONE IR (ROXICODONE) 5 mg immediate release tablet Take 1 tablet by mouth every 8 hours as needed for pain for up to 7 days. This is for recurrent pancreatitis outbreaks. - dicyclomine (BENTYL) 10 mg capsule TAKE 1 CAPSULE BY MOUTH 2 TIMES A DAY NEEDED FOR ABDOMINAL PAIN. MAY TAKE AN ADDITIONAL CAPSULE NEEDED. - atorvastatin (LIPITOR) 10 mg tablet TAKE 1 TABLET DAILY AT BEDTIME FOR CHOLESTEROL - omeprazole (PRILOSEC) 20 mg capsule Take 1 capsule by mouth once daily. - propranolol ER (INDERAL LA) 80 mg 24 hr capsule Take 1 capsule by mouth once daily. - pfqtuz-ovrrwjhu-xeqqumh (CREON) 36,000-114,000- 180,000 unit delayed release capsule Take 3 capsules by mouth three times daily with meals. - hyoscyamine (LEVSIN) 0.125 mg tablet Take 1 tablet by mouth twice daily. - promethazine (PHENERGAN) 12.5 mg tablet Take 1 tablet by mouth every 6 hours as needed. - SUMAtriptan Succinate 6 mg/0.5 mL crtg Inject 6 mg subcutaneously. As needed for migraine. May repeat after 1 hour if needed. No more than 2 doses in 24 hours. Problem List As Of Date 11/19/2023 Noted Resolved Allergic rhinitis [J30.9] 11/05/2005 Mixed hyperlipidemia [E78.2] Nonspecific abnormal results of liver function * Deviated nasal septum [J34.2] Urinary calculus, unspecified [N20.9] Diaphragmatic hernia without mention of obstruc*10/05/2007 Anal fissure [K60.2] 01/22/2012 Sphincter of Oddi dysfunction [K83.4] 2015 Vitiligo [L80] 11/08/2015 Gastroesophageal reflux disease without esophag*11/08/2015 Migraine without aura and without status migrai*11/08/2015 Prostate cancer screening [Z12.5] 11/08/2015 Well adult exam [Z00.00] 11/10/2016 Colon cancer screening [Z12.11] 11/10/2016 Proteinuria [R80.9] 11/28/2016 Idiopathic chronic pancreatitis (HCC) [K86.1] 05/12/2017 Elevated hemoglobin A1c [R73.09] 11/13/2017 Pancreatic cyst [K86.2] 05/23/2019 Medication management [Z79.899] 09/12/2020 Ex-smoker [Z87.891] 03/27/2021 Celiac disease [K90.0] 10/15/2022 Encounter Status:Closed by Navdeep FORMAN on 11/19/23 [facility] Basophil percentageOrdered B y: Epifanio Friend on 11-16-2023 Amylase [Catalytic activity/Vol] 79 U/L 25-115 [facility] Bilirubin [Mass/Vol] 0.60 mg/dL 0.20-1.[address] [facility] Comment on above: For patients on eltr ombopag therapy, use of Dimension [place] TBIL is not recommended. Chloride [Moles/Vol] 111 mmol/L 98-[address] [facility] Glucose [Mass/Vol] 99 mg/dL 74-106 [facility] Potassium [Moles/Vol] 4.5 mmol/L 3.5-5.1 [facility] Protein [Mass/Vol] 7.4 g/dL 6.4-8.2 [facility] Sodium [Moles/Vol] 140 mmol/L 136-145 [facility] Laboratory - Chemistry and C hemistry - challengeOrdered By: Epifanio Friend on 11-16-2023 Albumin/Globulin [Mass ratio] 1.1 {ratio} 0.9-2.4 [facility] ALP [Catalytic activity/Vol] 87 U/L 45-117 [facility] ALT [Catalytic activity/Vol] 63 U/L 16-61 [facility] CO2 [Moles/Vol] 27.0 mmol/L 21.0-32.0 [facility] Globulin (S) [Mass/Vol] 3.6 g/dL 2.2-4.2 [facility] Lipase [Catalytic activity/Vol] 46 U/L 13-75 [facility] Comment on above: Please note:LIPASE r evised reference range effective 23. New Lipase methodology. Expected to produce lower values than the previous assay method. NEW Reference Range: 13 - 75 U/L Urea nitrogen/Creatinine [Mass ratio] 11.9 mg/mg 10-20 [facility] No Panel InformationOrdered By: Epifanio Pereira on 11-16-2023 Anti-Gliadin IgA Antibody 25 units 0-19 [facility] Comment on above: Negative 0 - 19 Weak Positive 20 - 30 Moderate to Strong Positive >30 Anti-Gliadin IgG Antibody 8 units 0-19 [facility] Comment on above: Negative 0 - 19 Weak Positive 20 - 30 Moderate to Strong Positive >30 CA 19-9 Antigen 25 U/mL 0-35 [facility] Comment on above: [employer] El ectrochemiluminescence Immunoassay(ECLIA)Values obtained with different assay methods or kits cannotbe used interchangeably. Results cannot be interpreted asabsolute evidence of the presence or absence of malignantdisease.Performed at: [facility] [address] [id number] Director: Brannon Kline PhD, Phone: [phone] Endomysial IgA Antibody Negative Negative [facility] Estimated GFR (MDRD) Amer 89 mL/min >60 [facility] Comment on above: GFR Calc Estimated GFR (MDRD) Non-Af Amer 73 mL/min >60 [facility] Comment on above: Non- GFR Calc Immunoglobulin A 330 mg/dL 90-386 [facility] Tissue Transglutaminase IgG Ab 5 U/mL 0-5 [facility] Comment on above: Negative 0 - 5 Weak Positive 6 - 9 Positive >9 Serum or plasma calcium ruth urement (mass/volume)Ordered By: Epifanio Pereira on 11-16-2023 Calcium [Mass/Vol] 8.9 mg/dL 8.5-10.1 [facility] Serum or plasma creatinine m easurement (mass/volume)Ordered By: Epifanio Pereira on 11-16-2023 Creatinine [Mass/Vol] 1.09 mg/dL 0.70-1.30 [facility] Comment on above: The validity of the calculated GFR & GFRAA in patients over 70 years has not been determined. Clinical correlation is essential. Serum or plasma urea nitroge n measurement (mass/volume)Ordered By: Epifanio Pereira on 11-16-2023 Urea nitrogen [Mass/Vol] 13 mg/dL 7-18 [facility] Serum tissue transglutaminas e IgA antibody assay (units/volume)Ordered By: Epifanio Pereira on 11-16-2023 tTG IgA Qn (S) <2 U/mL 0-3 [facility] Comment on above: Negative 0 - 3 Weak Positive 4 - 10 Positive >10 Tissue Transglutaminase (tTG) has been identified as the endomysial antigen. Studies have demonstr- ated that endomysial IgA antibodies have over 99% specificity for gluten sensitive enteropathy. Thin prep Papanicolaou smear with manual screeningOrdered By: Epifanio Pereira on 11-16-2023 Thin prep Papanicolaou smear with manual screening 3.8 g/dL 3.2-5.0 [facility] Thin prep Papanicolaou smear with manual screening 26 U/L 15-37 [facility] Thin prep Papanicolaou smear with manual screening 2 5-15 [facility] MR ABDOMEN WO CONTRAST W [facility] 11-04-2023 MR ABDOMEN WO CONTRAST W MRCP EXAM: MR Abdomen Without Intravenous Contrast, MRCP Protocol CLINICAL HISTORY: The patient is 58 years old and is Male; K85.00, K86.2;OTHER REASON TECHNIQUE: Multiplanar magnetic resonance images of the abdomen without intravenous contrast using MRCP protocol. COMPARISON: No relevant prior studies available. FINDINGS: BILE DUCTS: The common bile duct measures 0.5 cm. No choledocholithiasis. GALLBLADDER: Cholecystectomy. LIVER: Heterogeneous/geographic hepatic steatosis. PANCREAS: No pancreas divisum. No pancreatic ductal dilation. No significant peripancreatic edema. No associated fluid collection. No conspicuous pancreatic cyst or other lesion. SPLEEN: Unremarkable. No splenomegaly. ADRENALS: Unremarkable. No mass. KIDNEYS AND URETERS: Left kidney simple 1.9 cm cyst requires no follow-up. No hydronephrosis. STOMACH AND BOWEL: Unremarkable. No obstruction. IMPRESSION: 1. No acute findings. No evidence of significant peripancreatic edema. No choledocholithiasis. 2. Heterogeneous/geographic hepatic steatosis Electronically signed by: Nitin Murdock MD 11/04/2023 09:00 AM EST Technologist: SR Dictated By: [id number] -UNKNOWN, DOCTOR Signed By: [id number] -UNKNOWN, DOCTOR Signed Out: 11/04/23 09:00:30 Normal [facility] Erythrocyte sedimentation ra teOrdered By: Epifanio Pereira on 05-07-2023 ESR (Bld) [Velocity] 17 mm/h 0-[address] [facility] No Panel InformationOrdered By: Epifanio Pereira on 05-07-2023 Endomysial IgA Antibody Negative Negative [facility] Serum IgA measurement (units /volume)Ordered By: Epifanio Pereira on 05-07-2023 IgA Qn (S) 302 mg/dL 90-386 [facility] Comment on above: Performed at: [address] Director: Brannon Kline PhD, Phone: [phone] Serum or plasma C reactive p rotein measurement (mass/volume)Ordered By: Epifanio Pereira on 05-07-2023 CRP [Mass/Vol] mg/L 0.0-3.0 [facility] Comment on above: C-Reactive Protein ( CRP) provides useful information for thediagnosis, therapy and monitoring of inflammatory processesand associated diseases. For the evaluation of Relative Riskfor Cardiovascular Disease, a High Sensitivity CRP (HSCRP)should be ordered. Serum tissue transglutaminas e IgA antibody assay (units/volume)Ordered By: Epifanio Pereira on 05-07-2023 tTG IgA Qn (S) <2 U/mL 0-3 [facility] Comment on above: Negative 0 - 3 Weak Positive 4 - 10 Positive >10 Tissue Transglutaminase (tTG) has been identified as the endomysial antigen. Studies have demonstr- ated that endomysial IgA antibodies have over 99% specificity for gluten sensitive enteropathy. No Panel InformationOrdered By: Epifanio Pereira on 01-16-2023 Stool Pancreatic Elastase 137 >200 [facility] Comment on above: Result Units: ug Agnieszka st./g Severe Pancreatic Insufficiency: <100 Moderate Pancreatic Insufficiency: 100 - 200 Normal: >200Performed at: [email or web address] HospitalGwngutmohl[address] [place], [place] [id number] Director: Gabi Seharer MD, Phone: [phone] Erythrocyte sedimentation ra teOrdered By: Epifanio Pereira on 01-12-2023 ESR (Bld) [Velocity] 14 mm/h 0-[address] [facility] No Panel InformationOrdered By: Epifanio Pereira on 01-12-2023 Endomysial IgA Antibody Negative Negative [facility] Serum IgA measurement (units /volume)Ordered By: Epifanio Pereira on 01-12-2023 IgA Qn (S) 333 mg/dL 90-386 [facility] Comment on above: Performed at: [facility] [id number] [place], [place] [id number] Director: Brannon Kline PhD, Phone: [phone] Serum or plasma C reactive p rotein measurement (mass/volume)Ordered By: Epifanio Pereira on 01-12-2023 CRP [Mass/Vol] mg/L 0.0-3.0 [facility] Comment on above: C-Reactive Protein ( CRP) provides useful information for thediagnosis, therapy and monitoring of inflammatory processesand associated diseases. For the evaluation of Relative Riskfor Cardiovascular Disease, a High Sensitivity CRP (HSCRP)should be ordered. Serum tissue transglutaminas e IgA antibody assay (units/volume)Ordered By: Epifanio Pereira on 01-12-2023 tTG IgA Qn (S) 4 U/mL 0-3 [facility] Comment on above: Negative 0 - 3 Weak Positive 4 - 10 Positive >10 Tissue Transglutaminase (tTG) has been identified as the endomysial antigen. Studies have demonstr- ated that endomysial IgA antibodies have over 99% specificity for gluten sensitive enteropathy. No Panel Informationon 07-15 Stool Calprotectin 166 ug/g 0-120 [facility] Work Phone: Comment on above: Concentration Interp retation Follow-Up<16 - 50 ug/g Normal None>50 -120 ug/g Borderline Re-evaluate in 4-6 weeks >120 ug/g Abnormal Repeat as clinically indicatedPerformed at: [employer] [facility] [place], [place] [id number] Director: Brannon Kline PhD, Phone: [phone] at: [employer] [address] [id number] Director: Gabi Shearer MD, Phone: [phone] Stool Neutral Fats Normal . [facility] Work Phone: Comment on above: Normal (<60 Droplets /HPF) Stool Pancreatic Elastase 183 >200 [facility] Work Phone: Comment on above: Result Units: ug Agnieszka st./g Severe Pancreatic Insufficiency: <100 Moderate Pancreatic Insufficiency: 100 - 200 Normal: >200Performed at: [employer] [id number] Director: aGbi Shearer MD, Phone: [phone] Qualitative fecal fat or lip idson 07-15-2022 Fat Ql (Stl) Increased . [facility] Work Phone: Comment on above: Normal (<100 Droplet s/HPF) Atypical perinuclear antineu trophil cytoplasmic antibodies measurementon 07-14-2022 Neutrophil cytoplasmic Ab.perinuclear.atypical IF (S) [Titer] <1:20 titer Neg:<1:20 [facility] Work Phone: Comment on above: The atypical pANCA p attern has been observed in asignificant percentage of patients with ulcerative colitis,primary sclerosing cholangitis and autoimmune hepatitis. Basophil percentageon 2021 Amylase [Catalytic activity/Vol] 76 U/L 25-115 [facility] Work Phone: Basophil percentage < 0.2 AI 0.0-0.9 [facility] Work Phone: Bilirubin [Mass/Vol] 0.60 mg/dL 0.20-1.[address] [facility] Work Phone: Comment on above: For patients on eltr ombopag therapy, use of Dimension [place] TBIL is not recommended. Chloride [Moles/Vol] 108 mmol/L 98-[address] [facility] Work Phone: Glucose [Mass/Vol] 105 mg/dL 74-106 [facility] Work Phone: Comment on above: Fasting Glucose resu lt from 100 to 125 mg/dL suggests IMPAIRED HOMEOSTASIS per A.D.A. criteria. Potassium [Moles/Vol] 4.9 mmol/L 3.5-5.1 [facility] Work Phone: Protein [Mass/Vol] 8.0 g/dL 6.4-8.2 [facility] Work Phone: [phone] Sodium [Moles/Vol] 140 mmol/L 136-145 [facility] Work Phone: [phone] Erythrocyte sedimentation ra iman 07-14-2022 ESR (Bld) [Velocity] 7 mm/h 0-[address] [facility] Work Phone: Interpretation of serum or p lasma protein pattern by immunofixation (narrative resulton 07-14-2022 Protein Fractions Immunofixation Lance [Interp] See comment [facility] Work Phone: Comment on above: Result: Not Observed Laboratory - Chemistry and C hemistry - challengeon 07-14-2022 ALP [Catalytic activity/Vol] 106 U/L 45-117 [facility] Work Phone: ALT [Catalytic activity/Vol] 69 U/L 16-61 [facility] Work Phone: CO2 [Moles/Vol] 28.0 mmol/L 21.0-32.0 [facility] Work Phone: Globulin (S) [Mass/Vol] 4.1 g/dL 2.2-4.2 [facility] Work Phone: [phone] Lipase [Catalytic activity/Vol] 162 U/L 73-393 [facility] Work Phone: Urea nitrogen/Creatinine [Mass ratio] 13.6 mg/mg 10-20 [facility] Work Phone: [phone] No Panel Informationon 07-14 Addendum Document Comment . [facility] Work Phone: Comment on above: Protein electrophore sis scan will follow via computer,mail, or well puller head delivery. Centromere B Antibody <0.2 AI 0.0-0.9 [facility]: Endomysial IgA Antibody Positive Negative [facility] Work Phone: Estimated GFR (MDRD) Amer 95 mL/min >60 [facility] Work Phone: Comment on above: GFR Calc Estimated GFR (MDRD) Non-Af Amer 79 mL/min >60 [facility] Work Phone: Comment on above: Non- GFR Calc Immunoglobulin E 42 IU/mL 6-495 [facility] Work Phone: Comment on above: Performed at: [place] [id number] Director: Brannon Kline PhD, Phone: [phone] at: [email or web address] [address] [id number] Director: Gabi Shearer MD, Phone: [phone] [employer] Antibody <0.2 AI 0.0-0.9 [facility] Work Phone: Serum DNA double strand anti body assay (units/volume)on 07-14-2022 DNA double strand Ab Qn (S) [IU]/mL 0-9 [facility] Work Phone: Comment on above: Negative <5 Equivoca l 5 - 9 Positive >9 Serum IgA measurement (units /volume)on 07-14-2022 IgA Qn (S) 337 mg/dL 90-386 [facility] Work Phone: Comment on above: Performed at: [employer] [place], [place] [id number] Director: Brannon Kline PhD, Phone: [phone] Serum Bailee-1 antibody assay (u nits/volume)on 07-14-2022 Bailee-1 extractable nuclear Ab Qn (S) <0.2 AI 0.0-0.9 [facility] Work Phone: Serum Scl-70 extractable nuc lear antibody assay (units/volume)on 07-14-2022 SCL-70 extractable nuclear Ab Qn (S) <0.2 AI 0.0-0.9 [facility] Work Phone: Serum Patel extractable nucl ear antibody detectionon 07-14-2022 Patel extractable nuclear Ab Ql (S) <0.2 AI 0.0-0.9 [facility] Work Phone: Serum [id number] measu rement by electrophoresison 07-14-2022 Alpha 1 globulin Elph [Mass/Vol] 0.2 g/dL 0.0-0.4 [facility] Work Phone: Alpha 1 globulin Elph [Mass/Vol] 1.0 g/dL 0.4-1.0 [facility] Work Phone: Serum classic neutrophil cyt oplasmic antibody assay (units/volume)on 07-14-2022 Neutrophil cytoplasmic Ab.classic Qn (S) <1:20 titer Neg:<1:20 [facility] Work Phone: Serum globulin measurement ( mass/volume)on 07-14-2022 Globulin (S) [Mass/Vol] 3.4 g/dL 2.2-3.9 [facility] Work Phone: Serum or plasma C reactive p rotein measurement (mass/volume)on 07-14-2022 CRP [Mass/Vol] mg/L 0.0-3.0 [facility] Work Phone: Comment on above: C-Reactive Protein ( CRP) provides useful information for thediagnosis, therapy and monitoring of inflammatory processesand associated diseases. For the evaluation of Relative Riskfor Cardiovascular Disease, a High Sensitivity CRP (HSCRP)should be ordered. Serum or plasma IgA measurem ent (mass/volume)on 07-14-2022 IgA [Mass/Vol] 326 mg/dL 90-386 [facility] Work Phone: Serum or plasma IgG measurem ent (mass/volume)on 07-14-2022 IgG [Mass/Vol] 942 mg/dL [phone] [facility] Work Phone: Serum or plasma IgM measurem ent (mass/volume)on 07-14-2022 IgM [Mass/Vol] 44 mg/dL 20-172 [facility] Work Phone: Serum or plasma albumin ruth urement (mass/volume)on 07-14-2022 Albumin [Mass/Vol] 3.9 g/dL 2.9-4.4 [facility] Work Phone: Serum or plasma albumin/glob ulin mass ratioon 07-14-2022 Albumin/Globulin [Mass ratio] 1.0 {ratio} 0.9-2.4 [facility] Work Phone: Serum or plasma beta globuli n measurement by electrophoresis (mass/volume)on 07-14-2022 Beta globulin Elph [Mass/Vol] 1.2 g/dL 0.7-1.3 [facility] Work Phone: Serum or plasma calcium ruth urement (mass/volume)on 07-14-2022 Calcium [Mass/Vol] 9.3 mg/dL 8.5-10.1 [facility] Work Phone: Serum or plasma creatinine m easurement (mass/volume)on 07-14-2022 Creatinine [Mass/Vol] 1.03 mg/dL 0.70-1.30 [facility] Work Phone: Comment on above: The validity of the calculated GFR & GFRAA in patients over 70 years has not been determined. Clinical correlation is essential. Serum or plasma gamma globul in measurement by electrophoresis (mass/volume)on 07-14-2022 Gamma globulin Elph [Mass/Vol] 1.0 g/dL 0.4-1.8 [facility] Work Phone: Serum or plasma immunoelectr ophoresis interpretation (nominal result)on 07-14-2022 Interpretation IEP [Interp] Comment . [facility] Work Phone: Comment on above: No monoclonality det ected. Serum or plasma urea nitroge n measurement (mass/volume)on 07-14-2022 Urea nitrogen [Mass/Vol] 14 mg/dL 7-18 [facility] Work Phone: Serum perinuclear neutrophil cytoplasmic antibody titer by immunofluorescenceon 07-14-2022 Neutrophil cytoplasmic Ab.perinuclear IF (S) [Titer] <1:20 titer Neg:<1:20 [facility] Work Phone: Comment on above: The presence of posi tive fluorescence exhibiting P-ANCA orC-ANCA patterns alone is not specific for the diagnosis ofWegener's Granulomatosis (WG) or microscopic polyangiitis.Decisions about treatment should not be based solely onANCA IFA results. The [employer] ANCA [employer] Consensusrecommends follow up testing of positive sera with both MO-3 and MPO-ANCA enzyme immunoassays. As many as 5% serumsamples are positive only by EIA. Ref. AM J Clin Fgkznb1213;111:507-513. Serum tissue transglutaminas e IgA antibody assay (units/volume)on 07-14-2022 tTG IgA Qn (S) 39 U/mL 0-3 [facility] Work Phone: Comment on above: Negative 0 - 3 Weak Positive 4 - 10 Positive >10 Tissue Transglutaminase (tTG) has been identified as the endomysial antigen. Studies have demonstr- ated that endomysial IgA antibodies have over 99% specificity for gluten sensitive enteropathy. Thin prep Papanicolaou smear with manual screeningon 07-14-2022 Thin prep Papanicolaou smear with manual screening 32 U/L 15-37 [facility] Work Phone: Thin prep Papanicolaou smear with manual screening 4 5-15 [facility] Work Phone: Thin prep Papanicolaou smear with manual screening 247 U/L 87-241 [facility] Work Phone: Thin prep Papanicolaou smear with manual screening 1.2 0.7-1.7 [facility] Work Phone: Total protein bloodon 2021 Protein [Mass/Vol] 7.3 g/dL 6.0-8.5 [facility] Work Phone: No Panel Information Enteric Bacteriology [facility] Work Phone: Vital Signs Date Time Vital Sign Value Performing Clinician Elenita bradford 05-26-2025 12:57-0400 Body height 172.1 cm Israel Santiago MD Work Phone: [facility] 05-26-2025 12:57-0400 Body mass index (BMI) [Ratio] 26.81 kg/m2 Israel Santiago MD Work Phone: [facility] 05-26-2025 12:57-0400 Body weight 79.38 kg Israel Santiago MD Work Phone: [facility] 05-26-2025 12:57-0400 Diastolic blood pressure 80 mm[Hg] Israel Santiago MD Work Phone: [facility] 05-26-2025 12:57-0400 Heart rate 66 /min Israel Santiago MD Work Phone: [facility] 05-26-2025 12:57-0400 Respiratory rate 16 /min Israel Santiago MD Work Phone: [facility] 05-26-2025 12:57-0400 Systolic blood pressure 112 mm[Hg] Israel Santiago MD Work Phone: [facility] 11-23-2024 13:57-0500 Body mass index (BMI) [Ratio] 27.06 kg/m2 Israel Santiago MD Work Phone: [facility] 11-23-2024 13:57-0500 Body weight 80.74 kg Israel Santiago MD Work Phone: [facility] 11-23-2024 13:57-0500 Diastolic blood pressure 78 mm[Hg] Israel Santiago MD Work Phone: [facility] 11-23-2024 13:57-0500 Heart rate 72 /min Israel Santiago MD Work Phone: [facility] 11-23-2024 13:57-0500 Respiratory rate 16 /min Israel Santiago MD Work Phone: [facility] 11-23-2024 13:57-0500 Systolic blood pressure 120 mm[Hg] Israel Santiago MD Work Phone: [facility] 05-18-2024 15:04-0400 Body height 172.7 cm Israel Santiago MD Work Phone: [facility] 05-18-2024 15:04-0400 Body mass index (BMI) [Ratio] 25.85 kg/m2 Israel Santiago MD Work Phone: [facility] 05-18-2024 15:04-0400 Body weight 77.11 kg Israel Santiago MD Work Phone: [facility] 05-18-2024 15:04-0400 Diastolic blood pressure 82 mm[Hg] Israel Santiago MD Work Phone: [facility] 05-18-2024 15:04-0400 Heart rate 64 /min Israel Santiago MD Work Phone: [facility] 05-18-2024 15:04-0400 Respiratory rate 16 /min Israel Santiago MD Work Phone: [facility] 05-18-2024 15:04-0400 Systolic blood pressure 122 mm[Hg] Israel Santiago MD Work Phone: [facility] 11-18-2023 13:57-0500 Diastolic blood pressure 84 mm[Hg] Israel Santiago MD Work Phone: [facility] 11-18-2023 13:57-0500 Systolic blood pressure 120 mm[Hg] Israel Santiago MD Work Phone: [facility] 11-18-2023 13:46-0500 Body weight 78.47 kg Israel Santiago MD Work Phone: [facility] 11-18-2023 13:46-0500 Heart rate 60 /min Israel Santiago MD Work Phone: [facility] 11-18-2023 13:46-0500 Respiratory rate 16 /min Israel Santiago MD Work Phone: [facility] 07-20-2023 11:20-0400 Body temperature 97.4 [degF] Dr. Israel Santiago Work Phone: [facility] 07-20-2023 11:20-0400 Diastolic blood pressure 72 mm[Hg] Dr. Israel Santiago Work Phone: [facility] 07-20-2023 11:20-0400 Heart rate 67 /min Dr. Israel Santiago Work Phone: [facility] 07-20-2023 11:20-0400 Respiratory rate 15 /min Dr. Israel Santiago Work Phone: [phone] [place] [address] 07-20-2023 11:20-0400 SaO2% (BldA) [Mass fraction] 97 % Dr. Israel Santiago Work Phone: [phone] [place] [address] 07-20-2023 11:20-0400 Systolic blood pressure 110 mm[Hg] Dr. Israel Santiago Work Phone: [facility] 07-20-2023 10:01-0400 Body height 172.[address] Israel Santiago Work Phone: [phone] [place] [address] 07-20-2023 10:01-0400 Body mass index (BMI) [Ratio] 25.4 kg/m2 Dr. Israel Santiago Work Phone: [facility] 07-20-2023 10:01-0400 Body weight [address] Israel Santiago Work Phone: [facility] 05-14-2023 15:09-0400 Body height 174 cm Israel Santiago MD Work Phone: [facility] 05-14-2023 15:09-0400 Body weight 77.56 kg Israel Santiago MD Work Phone: [facility] 05-14-2023 15:09-0400 Diastolic blood pressure 80 mm[Hg] Israel Santiago MD Work Phone: [facility] 05-14-2023 15:09-0400 Heart rate 68 /min Israel Santiago MD Work Phone: [facility] 05-14-2023 15:09-0400 Respiratory rate 16 /min Israel Santiago MD Work Phone: [facility] 05-14-2023 15:09-0400 SaO2% (BldA) [Mass fraction] 98 % Israel Santiago MD Work Phone: [facility] 05-14-2023 15:09-0400 Systolic blood pressure 128 mm[Hg] Israel Santiago MD Work Phone: [facility] 10-15-2022 14:36-0500 Diastolic blood pressure 80 mm[Hg] Israel Santiago MD Work Phone: [facility] 10-15-2022 14:36-0500 Systolic blood pressure 130 mm[Hg] Israel Santiago MD Work Phone: [facility] 10-15-2022 14:01-0500 Body weight 78.93 kg Israel Santiago MD Work Phone: [facility] 10-15-2022 14:01-0500 Heart rate 60 /min Israel Santiago MD Work Phone: [facility] 10-15-2022 14:01-0500 Respiratory rate 16 /min Israel Santiago MD Work Phone: [facility] 04-14-2022 14:00-0400 Body height 173.4 cm Israel Santiago MD Work Phone: [facility] 04-14-2022 14:00-0400 Body weight 78.47 kg Israel Santiago MD Work Phone: [facility] 04-14-2022 14:00-0400 Diastolic blood pressure 86 mm[Hg] Israel Santiago MD Work Phone: [facility] 04-14-2022 14:00-0400 Heart rate 64 /min Israel Santiago MD Work Phone: [facility] 04-14-2022 14:00-0400 Respiratory rate 14 /min Israel Santiago MD Work Phone: [facility] 04-14-2022 14:00-0400 Systolic blood pressure 120 mm[Hg] Israel Santiago MD Work Phone: [facility] Encounters Encounter Date Encounter Type Care Provider Facility Start: 07-24-2025 ambulatory [facility] Facility :[facility] Start: 07-10-2025 End: 07-10-2025 ambulatory [facility] Facility:[facility] Start: 07-03-2025 End: 07-03-2025 ambulatory ISRAEL SANTIAGO Facility:[facility] Start: 05-26-2025 End: 05-26-2025 ambulatory ISRAEL SANTIAGO Facility:[facility] Start: 05-26-2025 Encounter for genera l adult medical examination without abnormal findings ISRAEL SANTIAGO [facility] Start: 05-26-2025 End: 05-26-2025 Patient encounter procedure Israel Santiago MD Work Phone: [facility] Comment on above: Well adult exam (Alejandra emily Dx); Mixed hyperlipidemia; Elevated hemoglobin A1c; Gastroesophageal reflux disease without esophagitis; Migraine without aura and without status migrainosus, not intractable; Idiopathic chronic pancreatitis (HCC); Celiac disease (HCC); Pancreatic cyst (HCC); Pancreatic insufficiency (HCC); Encounter for immunization; Encounter for screening examination for other mental health and behavioral disorders; Screening for depression Start: 05-26-2025 End: 05-26-2025 Patient encounter status Israel Santiago MD Work Phone: [facility] Work Phone: Start: 05-26-2025 End: 05-26-2025 ambulatory ISRAEL SANTIAGO Facility:[facility] Start: 03-20-2025 End: 03-20-2025 Refill Darby Wilkins PA-C Work Phone: [facility] Comment on above: Refill Request Start: 11-24-2024 End: 11-25-2024 Follow-up encounter Israel Santiago MD Work Phone: [facility] Start: 11-23-2024 End: 11-23-2024 ambulatory ISRAEL SANTIAGO Facility:[facility] Start: 11-23-2024 End: 11-23-2024 Patient encounter procedure Israel Santiago MD Work Phone: [facility] Comment on above: Mixed hyperlipidemia (Primary Dx); Need for vaccination; Elevated hemoglobin A1c; Gastroesophageal reflux disease without esophagitis; Migraine without aura and without status migrainosus, not intractable; Idiopathic chronic pancreatitis (HCC); Pancreatic insufficiency; Encounter for immunization; Prostate cancer screening; Medication management Start: 11-18-2024 End: 11-18-2024 ambulatory Epifanio Pereira Facility:[facility] Start: 10-19-2024 End: 10-19-2024 Refill Darby Wilkins PA-C Work Phone: [facility] Comment on above: Refill Request Start: 05-19-2024 End: 05-19-2024 Telephone encounter Israel Santiago MD Work Phone: [facility] Comment on above: Results Start: 05-18-2024 End: 05-18-2024 Patient encounter procedure Israel Santiago MD Work Phone: [facility] Comment on above: Well adult exam (Alejandra emily Dx); Elevated hemoglobin A1c; Mixed hyperlipidemia; Gastroesophageal reflux disease without esophagitis; Migraine without aura and without status migrainosus, not intractable; Pancreatic insufficiency; Pancreatic cyst; Celiac disease; Idiopathic chronic pancreatitis (HCC); Prostate cancer screening; Medication management Start: 05-18-2024 End: 05-18-2024 Patient encounter status Israel Santiago MD Work Phone: [facility] Work Phone: Start: 05-03-2024 Refill Batsheva zimmer APRN.CNP Work Phone: [facility] [place] Comment on above: Refill Request Start: 01-11-2024 Refill Israel mojica MD Work Phone: [facility] Comment on above: Refill Request Start: 11-24-2023 Chart abstracting Israel mccray MD Work Phone: [facility] Comment on above: Outside [id number] Ordered Start: 11-19-2023 Chart abstracting Israel mccray MD Work Phone: [facility] Comment on above: Outside [id number] Ordered Start: 11-19-2023 Telephone encounter Israel Santiago MD Work Phone: [facility] Comment on above: Medication Problem Results Start: 11-18-2023 End: 11-18-2023 Patient encounter procedure Israel Santiago MD Work Phone: [facility] Comment on above: Mixed hyperlipidemia (Primary Dx); Elevated fasting blood sugar; Migraine without aura and without status migrainosus, not intractable; Gastroesophageal reflux disease without esophagitis; Idiopathic chronic pancreatitis (HCC); Pancreatic cyst; Medication management; Prostate cancer screening; Need for vaccination; Celiac disease Start: 11-17-[address] Israel Santiago Work Phone: [facility] Spec[facility] Work Phone: Start: 11-17-2023 Chart abstracting Israel mccray MD Work Phone: [facility] Comment on above: Outside [id number] Ordered Start: 11-16-2023 End: 11-16-[address] Israel Santiago Work Phone: [facility] Work Phone: Start: 11-16-2023 End: 11-16-[address] Israel Santiago Work Phone: [facility] Work Phone: Start: 11-03-2023 End: 11-04-2023 ambulatory ISRAEL SANTIAGO Facility:[id number] Start: 10-23-2023 Refill Batsheva zimmer APRN.CNP Work Phone: [facility] Comment on above: Refill Request Start: 08-24-2023 End: 08-24-[address] Israel Santiago Work Phone: [facility] Work Phone: Start: 08-06-2023 End: 08-06-[address] Israel Santiago Work Phone: [facility] Work Phone: Start: 08-06-2023 End: 08-06-[address] Israel Santiago Work Phone: [facility]Cat Scan, [facility] Work Phone: Start: 07-23-2023 Refill Israel mojica MD Work Phone: [facility] Comment on above: Refill Request Start: 07-21-2023 Chart abstracting Israel mccray MD Work Phone: [facility] Comment on above: Outside Colonoscopy Start: 07-20-2023 Non-patient / Non-visit Dr. Shabbir Santiago Work Phone: [facility] Start: 07-20-2023 End: 07-20-2023 Admission to same day surgery center Dr. Israel Santiago Work Phone: [facility] Work Phone: Start: 07-20-2023 End: 07-20-[address] Israel Santiago Work Phone: [facility] Work Phone: Start: 05-22-2023 End: 05-22-[address] Israel Santiago Work Phone: [facility] Work Phone: Start: 05-14-2023 End: 05-14-2023 Patient encounter procedure Israel Santiago MD Work Phone: [facility] Comment on above: Well adult exam (Alejandra emily Dx); Elevated fasting blood sugar; Mixed hyperlipidemia; Gastroesophageal reflux disease without esophagitis; Migraine without aura and without status migrainosus, not intractable; Idiopathic chronic pancreatitis (HCC); Celiac disease; Pancreatic cyst Start: 05-14-2023 End: 05-14-2023 Patient encounter status Israel Santiago MD Work Phone: [facility] Work Phone: Start: 05-12-2023 Chart abstracting Israel mccray MD Work Phone: [facility] Comment on above: Outside [id number] Ordered Start: 05-07-2023 End: 05-07-2023 ambulatory [facility] Work Phone: Start: 05-07-2023 End: 05-07-2023 Patient encounter procedure [facility] Work Phone: Start: 04-27-2023 Refill Israel mojica MD Work Phone: [facility] Comment on above: Refill Request Start: 01-19-2023 Chart abstracting Israel mccray MD Work Phone: [facility] Comment on above: Results Start: 01-16-2023 End: 01-16-[address] Israel Santiago Work Phone: [facility] Work Phone: Start: 01-16-2023 End: 01-16-[address] Israel Santiago Work Phone: [facility] Spec[facility] Start: 01-14-2023 Refill Israel mojica MD Work Phone: [facility] Comment on above: Refill Request Start: 01-12-2023 End: 01-12-[address] Israel Santiago Work Phone: [facility] Work Phone: Start: 01-12-2023 End: 01-12-[address] Israel Santiago Work Phone: [facility] Start: 10-16-2022 Telephone encounter Israel Santiago MD Work Phone: [facility] Comment on above: Results Start: 10-15-2022 End: 10-15-2022 Patient encounter procedure Israel Santiago MD Work Phone: [facility] Comment on above: Mixed hyperlipidemia (Primary Dx); Elevated fasting blood sugar; Idiopathic chronic pancreatitis (HCC); Gastroesophageal reflux disease without esophagitis; Migraine without aura and without status migrainosus, not intractable; Celiac disease; Prostate cancer screening; Medication management Start: 10-10-2022 End: 10-10-[address] Israel Santiago Work Phone: [facility] Start: 07-23-2022 End: 07-23-2022 ambulatory No Primary Care Physician [facility] Work Phone: Start: 07-23-2022 End: 07-23-2022 Patient encounter procedure No Primary Care Physician [facility] Start: 07-22-2022 Refill Israel mojica MD Work Phone: [facility] Comment on above: Refill Request Start: 07-15-2022 End: 07-15-2022 Patient encounter procedure No Primary Care Physician [facility] Start: 07-14-2022 End: 07-14-2022 ambulatory No Primary Care Physician [facility] Work Phone: Start: 07-14-2022 End: 07-14-2022 Patient encounter procedure No Primary Care Physician [facility] Start: 07-14-2022 End: 07-14-2022 Patient encounter procedure No Primary Care Physician [facility] Start: 04-14-2022 End: 04-14-2022 Patient encounter procedure Israel Santiago MD Work Phone: [facility] Comment on above: Well adult exam (Alejandra emiyl Dx); Mixed hyperlipidemia; Elevated fasting blood sugar; Gastroesophageal reflux disease without esophagitis; Migraine without aura and without status migrainosus, not intractable; Idiopathic chronic pancreatitis (HCC); Sphincter of Oddi dysfunction; Allergic rhinitis, unspecified seasonality, unspecified trigger Start: 04-14-2022 End: 04-14-2022 Patient encounter status Israel Santiago MD Work Phone: [facility] [place] Start: 01-29-2022 Refill Israel mojica MD Work Phone: [facility] [place] Comment on above: Refill Request Start: 03-27-2021 Patient encounter status Vern Santiago MD Work Phone: [facility] Work Phone: Procedures Date Procedure Procedure Detail Performing Clinician Start: 05-26-2025 Adult depression scr eening assessment Israel Santiago MD Work Phone: Start: 11-23-2024 PFIZER-BIONTECH COVI D-19 VACCINE AGE 12+ YR (COMIRNATY) Israel Santiago MD Work Phone: Start: 11-23-2024 Lipid 1996 panel - S darrell or Plasma Israel Santiago MD Work Phone: Start: 05-18-2024 Lipid 1996 panel - S darrell or Plasma Israel Santiago MD Work Phone: Start: 11-18-2023 PFIZER-BIONTECH COVI D-19 VACCINE (2022- SEASON) AGE 12+ YR Israel Santiago MD Work Phone: Start: 11-18-2023 INFLUENZA VACCINE, A GE 6 MO - 64 YR, QUADRIVALENT (AFLURIA, FLULAVAL, FLUZONE) Israel Santiago MD Work Phone: Start: 11-18-2023 Lipid 1996 panel - S darrell or Plasma Israel Santiago MD Work Phone: Start: 08-24-[address] Israel Santiago Work Phone: Start: 08-06-2023 Computed tomography of abdomen and pelvis with contrast Dr. Israel Santiago Work Phone: Start: 07-20-2023 End: 07-20-[address] Israel Santiago Work Phone: Start: 05-07-2023 Lipid 1996 panel - S darrell or Plasma Israel Santiago MD Work Phone: Start: 07-23-2022 Computed tomography of abdomen and pelvis with contrast No Primary Care Physician Start: 04-14-2022 Adult depression scr eening assessment Israel Santiago MD Work Phone: Start: 12-25-2017 Colonoscopy Israel mccray MD Work Phone: Clostridium difficil e detection No Primary Care Physician Enteric Bacteriology No Prim j luis Care Physician Lactoferrin measurement No P [facility] Care Physician Plan of Treatment Date Care Activity Detail Author Start: 2038 RSV Vaccine (1 - 1-d ose 75+ series) RSV Vaccine (1 - 1-dose 75+ series) [facility] Start: 07-20-2033 Colonoscopy Colonoscopy [facility] Start: 07-20-2033 Colorectal Cancer Screening Colorectal Cancer Screening [facility] Start: 07-20-2033 Screening for malign ant neoplasm of colon [facility] Start: 11-23-2029 Lipid panel Lipid Screening [facility] Start: 05-18-2029 Lipid panel Lipid Screening [facility] Start: 05-18-2029 Prostate specific antigen measurement Prostate Cancer Screening Discussion [facility] Start: 11-18-2028 Lipid panel Lipid Screening [facility] Start: 05-07-2028 Lipid 1996 panel - S darrell or Plasma Lipid Screening [facility] Start: 05-07-2028 Lipid panel Lipid Screening [facility] Start: 05-07-2028 LIPID SCREEN LIPID SCREEN [facility] Start: 05-07-2028 PROSTATE CANCER SCREENING DISCUSSION PROSTATE CANCER SCREENING DISCUSSION [facility] Start: 05-07-2028 Prostate specific antigen measurement Prostate Cancer Screening Discussion [facility] Start: 11-23-2027 Diabetes Screening Diabetes Screenin g [facility] Start: 10-15-2027 LIPID SCREEN LIPID SCREEN [facility] Start: 05-18-2027 Diabetes Screening Diabetes Screenin g [facility] Start: 04-14-2027 LIPID SCREEN LIPID SCREEN [facility] Start: 04-14-2027 PROSTATE CANCER SCREENING DISCUSSION PROSTATE CANCER SCREENING DISCUSSION [facility] Start: 11-18-2026 Diabetes Screening Diabetes Screenin g [facility] Start: 10-12-2026 LIPID SCREEN LIPID SCREEN [facility] Start: 05-26-2026 Anxiety Screening Anxiety Screening [facility] Start: 05-26-2026 Depression Screening Depression Scre ening [facility] Start: 05-07-2026 DIABETES SCREEN DIABETES SCREEN [facility] Start: 05-07-2026 Diabetes Screening Diabetes Screenin g [facility] Start: 04-03-2026 PROSTATE CANCER SCREENING DISCUSSION PROSTATE CANCER SCREENING DISCUSSION [facility] Start: 11-29-2025 End: 11-29-2025 Patient encounter procedure 11/29/2025 1:00 PM EST Office Visit [facility] [place] [address] [facility] [place], [place] [phone] Darby Wilkins PA-C [address] [place] [place] [address] 6 mo f/u Family [facility] [place] Comment on above: 6 mo f/u Start: 11-10-2025 End: 02-09-2026 Hemoglobin A1c in Blood HEMOGLOBIN A1C Lab Routine Elevated hemoglobin A1c Expected: 11/10/2025, Expires: 02/09/2026 [facility] Work Phone: Comment on above: Expected: 11/10/2025 , Expires: 02/09/2026 Start: 11-10-2025 End: 02-09-2026 LIPID PANEL, NONFASTING LIPID PANEL, NONFASTING Lab Routine Mixed hyperlipidemia Expected: 11/10/2025, Expires: 02/09/2026 [facility] Comment on above: Expected: 11/10/2025 , Expires: 02/09/2026 Start: 10-15-2025 DIABETES SCREEN DIABETES SCREEN [facility] Start: 05-26-2025 End: 05-26-2025 Patient encounter procedure [facility] [place] Comment on above: Physical/prev 20 Start: 05-18-2025 Anxiety Screening Anxiety Screening [facility] Comment on above: Postponed from 08/07 (Declined at this time) Start: 05-12-2025 End: 08-11-2025 CBC W Auto Differential panel - Blood COMPLETE BLOOD COUNT AND DIFFERENTIAL Lab Routine Medication management Expected: 05/12/2025, Expires: 08/11/2025 [facility] Comment on above: Expected: 05/12/2025 , Expires: 08/11/2025 Start: 05-12-2025 End: 08-11-2025 Cobalamin (Vitamin B12) [Mass/volume] in Serum or Plasma VITAMIN B12 Lab Routine Gastroesophageal reflux disease without esophagitis Medication management Expected: 05/12/2025, Expires: 08/11/2025 [facility] Comment on above: Expected: 05/12/2025 , Expires: 08/11/2025 Start: 05-12-2025 End: 08-11-2025 Comprehensive metabolic 2000 panel - Serum or Plasma COMPREHENSIVE METABOLIC PANEL Lab Routine Mixed hyperlipidemia Elevated hemoglobin A1c Expected: 05/12/2025, Expires: 08/11/2025 [facility] Comment on above: Expected: 05/12/2025 , Expires: 08/11/2025 Start: 05-12-2025 End: 08-11-2025 Hemoglobin A1c in Blood HEMOGLOBIN A1C Lab Routine Elevated hemoglobin A1c Expected: 05/12/2025, Expires: 08/11/2025 [facility] Comment on above: Expected: 05/12/2025 , Expires: 08/11/2025 Start: 05-12-2025 End: 08-11-2025 LIPID PANEL, NONFASTING LIPID PANEL, NONFASTING Lab Routine Mixed hyperlipidemia Expected: 05/12/2025, Expires: 08/11/2025 [facility] Comment on above: Expected: 05/12/2025 , Expires: 08/11/2025 Start: 05-12-2025 End: 08-11-2025 Magnesium [Mass/volume] in Serum or Plasma MAGNESIUM Lab Routine Gastroesophageal reflux disease without esophagitis Medication management Expected: 05/12/2025, Expires: 08/11/2025 [facility] Comment on above: Expected: 05/12/2025 , Expires: 08/11/2025 Start: 05-12-2025 End: 08-11-2025 Prostate specific Ag [Mass/volume] in Serum or Plasma PROSTATE-SPECIFIC ANTIGEN DIAGNOSTIC Lab Routine Prostate cancer screening Expected: 05/12/2025, Expires: 08/11/2025 [facility] Comment on above: Expected: 05/12/2025 , Expires: 08/11/2025 Start: 05-12-2025 End: 08-11-2025 Urinalysis complete panel - Urine URINALYSIS, WITH MICROSCOPIC Lab Routine Mixed hyperlipidemia Expected: 05/12/2025, Expires: 08/11/2025 [facility] Comment on above: Expected: 05/12/2025 , Expires: 08/11/2025 Start: 04-14-2025 DIABETES SCREEN DIABETES SCREEN [facility] Start: 11-23-2024 End: 02-22-2025 Hemoglobin A1c in Blood [facility] Work Phone: Comment on above: Expected: 11/23/2024 , Expires: 02/22/2025 Start: 11-23-2024 End: 11-23-2024 Patient encounter procedure 11/23/2024 2:00 PM EST Office Visit [facility] [place] [address] [place], [place] [id number] Israel Santiago MD [address] [place] [phone] 6 month follow up [facility] [place] Comment on above: 6 month follow up Start: 11-18-2024 RSV Vaccine (1 - 1-d ose 60+ series) RSV Vaccine (1 - 1-dose 60+ series) [facility] Comment on above: Postponed from 08/07 (Insurance Coverage) Start: 10-12-2024 DIABETES SCREEN DIABETES SCREEN [facility] Start: 09-27-2024 Behavioral Health Screening Behavioral Health Screening [facility] Comment on above: Postponed from 09/28 (Declined at this time) Start: 09-27-2024 Depression Assessment Depression Ass essment [facility] Comment on above: Postponed from 09/28 (Declined at this time) Start: 05-29-2024 Covid-19 Vaccine ( season) Covid-19 Vaccine () [facility] Start: 05-18-2024 End: 05-18-2024 Patient encounter procedure 05/18/2024 3:00 PM EDT Office Visit Family [facility] [address] [place] [phone] Israel Santiago MD [address] [place] [phone] Physical [facility] [place] Comment on above: Physical Start: 05-18-2024 End: 08-17-2024 CBC W Auto Differential panel - Blood [facility] Comment on above: Expected: 05/18/2024 , Expires: 08/17/2024 Start: 05-18-2024 End: 08-17-2024 Cobalamin (Vitamin B12) [Mass/volume] in Serum or Plasma [facility] Work Phone: Comment on above: Expected: 05/18/2024 , Expires: 08/17/2024 Start: 05-18-2024 End: 08-17-2024 Comprehensive metabolic 2000 panel - Serum or Plasma [facility] Comment on above: Expected: 05/18/2024 , Expires: 08/17/2024 Start: 05-18-2024 Depression Screening Depression Scre ening [facility] Comment on above: Postponed from 08/07 (Declined at this time) Start: 05-18-2024 End: 08-17-2024 Hemoglobin A1c in Blood [facility] Comment on above: Expected: 05/18/2024 , Expires: 08/17/2024 Start: 05-18-2024 End: 08-17-2024 LIPID PANEL, NONFASTING [facility] Comment on above: Expected: 05/18/2024 , Expires: 08/17/2024 Start: 05-18-2024 End: 08-17-2024 Prostate specific Ag [Mass/volume] in Serum or Plasma [facility] Comment on above: Expected: 05/18/2024 , Expires: 08/17/2024 Start: 05-18-2024 End: 08-17-2024 Urinalysis complete panel - Urine [facility] Comment on above: Expected: 05/18/2024 , Expires: 08/17/2024 Start: 05-06-2024 End: 08-05-2024 CBC W Auto Differential panel - Blood CBC + DIFF Lab Routine Idiopathic chronic pancreatitis (HCC) Medication management Expected: 05/06/2024, Expires: 08/05/2024 [facility] Work Phone: Comment on above: Expected: 05/06/2024 , Expires: 08/05/2024 Start: 05-06-2024 End: 08-05-2024 Cobalamin (Vitamin B12) [Mass/volume] in Serum or Plasma VITAMIN B12 BLOOD Lab Routine Gastroesophageal reflux disease without esophagitis Medication management Expected: 05/06/2024, Expires: 08/05/2024 [facility] Work Phone: Comment on above: Expected: 05/06/2024 , Expires: 08/05/2024 Start: 05-06-2024 End: 08-05-2024 Comprehensive metabolic 2000 panel - Serum or Plasma COMP METABOLIC PANEL Lab Routine Mixed hyperlipidemia Expected: 05/06/2024, Expires: 08/05/2024 [facility] Work Phone: Comment on above: Expected: 05/06/2024 , Expires: 08/05/2024 Start: 05-06-2024 End: 08-05-2024 Hemoglobin A1c in Blood HGB A1C Lab Routine Elevated fasting blood sugar Expected: 05/06/2024, Expires: 08/05/2024 [facility] Work Phone: Comment on above: Expected: 05/06/2024 , Expires: 08/05/2024 Start: 05-06-2024 End: 08-05-2024 LIPID PANEL, NONFASTING LIPID PANEL, NONFASTING Lab Routine Mixed hyperlipidemia Expected: 05/06/2024, Expires: 08/05/2024 [facility] Work Phone: Comment on above: Expected: 05/06/2024 , Expires: 08/05/2024 Start: 05-06-2024 End: 08-05-2024 Magnesium [Mass/volume] in Serum or Plasma MAGNESIUM BLD Lab Routine Gastroesophageal reflux disease without esophagitis Medication management Expected: 05/06/2024, Expires: 08/05/2024 [facility] Work Phone: Comment on above: Expected: 05/06/2024 , Expires: 08/05/2024 Start: 05-06-2024 End: 08-05-2024 Prostate specific Ag [Mass/volume] in Serum or Plasma PSA/PROSTSPECAG DIAG Lab Routine Prostate cancer screening Expected: 05/06/2024, Expires: 08/05/2024 [facility] Work Phone: Comment on above: Expected: 05/06/2024 , Expires: 08/05/2024 Start: 05-06-2024 End: 08-05-2024 Urinalysis complete panel - Urine URINALYSIS, WITH MICROSCOPIC Lab Routine Mixed hyperlipidemia Expected: 05/06/2024, Expires: 08/05/2024 [facility] Work Phone: Comment on above: Expected: 05/06/2024 , Expires: 08/05/2024 Start: 11-17-2023 Elastase.pancreatic [Presence] in Stool [facility] Start: 10-30-2023 End: 12-30-2023 Comprehensive metabolic 2000 panel - Serum or Plasma COMP METABOLIC PANEL Lab Routine Mixed hyperlipidemia Expected: 10/30/2023, Expires: 12/30/2023 [facility] Work Phone: Comment on above: Expected: 10/30/2023 , Expires: 12/30/2023 Start: 10-30-2023 End: 12-30-2023 Hemoglobin A1c in Blood HGB A1C Lab Routine Elevated fasting blood sugar Expected: 10/30/2023, Expires: 12/30/2023 [facility] Work Phone: Comment on above: Expected: 10/30/2023 , Expires: 12/30/2023 Start: 10-30-2023 End: 12-30-2023 LIPID PANEL, NONFASTING LIPID PANEL, NONFASTING Lab Routine Mixed hyperlipidemia Expected: 10/30/2023, Expires: 12/30/2023 [facility] Work Phone: Comment on above: Expected: 10/30/2023 , Expires: 12/30/2023 Start: 10-15-2023 COVID-19 VACCINE (4 - Booster for Moderna series) COVID-19 VACCINE (4 - Booster for Moderna series) [facility] Comment on above: Postponed from 02/10 (Declined at this time) Start: 10-15-2023 COVID-19 VACCINE (4 - Moderna series) COVID-19 VACCINE (4 - Moderna series) [facility] Comment on above: Postponed from 02/10 (Declined at this time) Start: 09-28-2023 Depression Assessment Depression Ass essment [facility] Start: 2023 RSV Vaccine (1 - 1-d ose 60+ series) RSV Vaccine (1 - 1-dose 60+ series) [facility] Start: 07-20-2023 Colonoscopy flx dx w/collj spec when pfrmd DIAGNOSTIC COLONOSCOPY [facility] Start: 07-20-2023 Patient discharge [facility] Start: 05-29-2023 Covid-19 Vaccine () Covid-19 Vaccine () [facility] Start: 04-14-2023 Adult depression screening assessment DEPRESSION SCREENING [facility] Start: 04-03-2023 End: 06-03-2023 CBC W Auto Differential panel - Blood CBC + DIFF Lab Routine Idiopathic chronic pancreatitis (HCC) Medication management Expected: 04/03/2023, Expires: 06/03/2023 [facility] Work Phone: Comment on above: Expected: 04/03/2023 , Expires: 06/03/2023 Start: 04-03-2023 End: 06-03-2023 Cobalamin (Vitamin B12) [Mass/volume] in Serum or Plasma VITAMIN B12 BLOOD Lab Routine Gastroesophageal reflux disease without esophagitis Medication management Expected: 04/03/2023, Expires: 06/03/2023 [facility] Work Phone: Comment on above: Expected: 04/03/2023 , Expires: 06/03/2023 Start: 04-03-2023 End: 06-03-2023 Comprehensive metabolic 2000 panel - Serum or Plasma COMP METABOLIC PANEL Lab Routine Mixed hyperlipidemia Elevated fasting blood sugar Expected: 04/03/2023, Expires: 06/03/2023 [facility] Work Phone: Comment on above: Expected: 04/03/2023 , Expires: 06/03/2023 Start: 04-03-2023 End: 06-03-2023 Hemoglobin A1c in Blood HGB A1C Lab Routine Elevated fasting blood sugar Expected: 04/03/2023, Expires: 06/03/2023 [facility] Work Phone: Comment on above: Expected: 04/03/2023 , Expires: 06/03/2023 Start: 04-03-2023 End: 06-03-2023 LIPID PANEL, NONFASTING LIPID PANEL, NONFASTING Lab Routine Mixed hyperlipidemia Elevated fasting blood sugar Expected: 04/03/2023, Expires: 06/03/2023 [facility] Work Phone: Comment on above: Expected: 04/03/2023 , Expires: 06/03/2023 Start: 04-03-2023 End: 06-03-2023 Magnesium [Mass/volume] in Serum or Plasma MAGNESIUM BLD Lab Routine Gastroesophageal reflux disease without esophagitis Medication management Expected: 04/03/2023, Expires: 06/03/2023 [facility] Work Phone: Comment on above: Expected: 04/03/2023 , Expires: 06/03/2023 Start: 04-03-2023 End: 06-03-2023 Prostate specific Ag [Mass/volume] in Serum or Plasma PSA/PROSTSPECAG DIAG Lab Routine Prostate cancer screening Expected: 04/03/2023, Expires: 06/03/2023 [facility] Work Phone: Comment on above: Expected: 04/03/2023 , Expires: 06/03/2023 Start: 04-03-2023 End: 06-03-2023 Urinalysis complete panel - Urine URINALYSIS, WITH MICROSCOPIC Lab Routine Mixed hyperlipidemia Elevated fasting blood sugar Expected: 04/03/2023, Expires: 06/03/2023 [facility] Work Phone: Comment on above: Expected: 04/03/2023 , Expires: 06/03/2023 Start: 01-16-2023 Elastase, pancreatic (el-1), fecal; quantitative [facility] Start: 12-25-2022 Colonoscopy COLONOSCOPY [facility] Start: 12-25-2022 COLORECTAL CANCER SCREENING COLORECTAL CANCER SCREENING [facility] Start: 10-03-2022 End: 12-03-2022 Comprehensive metabolic 2000 panel - Serum or Plasma COMP METABOLIC PANEL Lab Routine Idiopathic chronic pancreatitis (HCC) Mixed hyperlipidemia Elevated fasting blood sugar Expected: 10/03/2022, Expires: 12/03/2022 [facility] Work Phone: Comment on above: Expected: 10/03/2022 , Expires: 12/03/2022 Start: 10-03-2022 End: 12-03-2022 Hemoglobin A1c in Blood HGB A1C Lab Routine Elevated fasting blood sugar Expected: 10/03/2022, Expires: 12/03/2022 [facility] Work Phone: Comment on above: Expected: 10/03/2022 , Expires: 12/03/2022 Start: 10-03-2022 End: 12-03-2022 LIPID PANEL, NONFASTING LIPID PANEL, NONFASTING Lab Routine Mixed hyperlipidemia Expected: 10/03/2022, Expires: 12/03/2022 [facility] Work Phone: Comment on above: Expected: 10/03/2022 , Expires: 12/03/2022 Start: 07-14-2022 IgE [Units/volume] i n Serum or Plasma [facility] Work Phone: Start: 07-14-2022 Serum immunofixation [facility] Work Phone: Start: 07-14-2022 [facility] Work Phone: Start: 04-17-2022 COVID-19 VACCINE (4 - Booster for Moderna series) COVID-19 VACCINE (4 - Booster for Moderna series) [facility] Start: 02-10-2022 COVID-19 VACCINE (4 - Booster for Moderna series) COVID-19 VACCINE (4 - Booster for Moderna series) [facility] Start: 09-28-2021 DEPRESSION ASSESSMENT DEPRESSION ASS ESSMENT [facility] Start: 06-12-2021 COVID-19 VACCINE (3 - Booster for Moderna series) COVID-19 VACCINE (3 - Booster for Moderna series) [facility] Start: 11-27-2017 FECAL OCCULT BLOOD FECAL OCCULT BLOO D [facility] Start: 11-27-2017 Screening for malign ant neoplasm of colon Fecal Occult Blood [facility] Start: 2013 Pneumococcal Vaccine : 50+ (1 of 1 - PCV) Pneumococcal Vaccine: 50+ (1 of 1 - PCV) [facility] Start: 2008 COLOGUARD (FIT-DNA) [facility] Start: [address] COLONOGRAPHY [facility] Start: 2008 Screening for malign ant neoplasm of colon [facility] Start: 2008 [facility] Start: 1981 Anxiety Screening Anxiety Screening [facility] Start: 1981 Depression Screening Depression Scre ening [facility] Start: 1965 HEPATITIS B (1 of 3 - 3-dose series) HEPATITIS B (1 of 3 - 3-dose series) [facility] Albumin [Moles/volum e] in Serum or Plasma [facility] Work Phone: Albumin/Globulin ratio [facility] Work Phone: CT Abdomen and Pelvi s W contrast IV [facility] Work Phone: Electrophoresis: [id number] [facility] Work Phone: Electrophoresis: jacques ma globulin [facility] Work Phone: Globulin measurement [facility] Work Phone: IgA [Mass/volume] in Serum or Plasma [facility] Work Phone: IgE [Units/volume] i n Serum or Plasma [facility] Work Phone: IgG [Mass/volume] in Serum or Plasma [facility] Work Phone: IgM [Mass/volume] in Serum or Plasma [facility] Work Phone: Neutrophil cytoplasm ic Ab.classic [Units/volume] in Serum [facility] Work Phone: P-ANCA measurement [facility] Work Phone: Patient referral [facility] Work Phone: Protein electrophore sis panel - Serum or Plasma [facility] Work Phone: Serum protein electrophoresis [facility] Work Phone: [facility] Immunizations Immunization Date Immunization Notes Care Provider Sakshi hernandez 05-26-2025 pneumococcal conjuga te (PCV20) vaccine, 20 valent (PREVNAR 20) Israel Santiago MD Work Phone: [facility] 05-26-2025 pneumococcal Conjuga te, unspecified formulation Israel Santiago MD Work Phone: [facility] 11-23-2024 COVID-19 vaccine, ag e 12+ yr (PFIZER-BIONTNewtopia COMIRNATY) Israel Santiago MD Work Phone: [facility] 11-23-2024 influenza, seasonal, injectable Israel Santiago MD Work Phone: [facility] 11-18-2023 COVID-19 vaccine, ag e 12+ yr, season (PFIZER-BIONTECH) Israel Santiago MD Work Phone: [facility] 11-18-2023 influenza, injectabl e, quadrivalent, contains preservative Israel Santiago MD Work Phone: [facility] 10-12-2021 influenza, injectabl e, quadrivalent, contains preservative Israel Santiago MD Work Phone: [facility] 01-10-2021 COVID-19 vaccine, fu ll dose (MODERNA) Israel Santiago MD Work Phone: [facility] 12-13-2020 COVID-19 vaccine, fu ll dose (MODERNA) Israel Santiago MD Work Phone: [facility] Work Phone: 11-13-2020 zoster vaccine recombinant Israel Santiago MD Work Phone: [facility] Work Phone: 09-12-2020 influenza, injectabl e, quadrivalent, contains preservative Israel Santiago MD Work Phone: [facility] 09-12-2020 zoster vaccine recombinant Israel Santiago MD Work Phone: [facility] Payers Date Payer Category Payer Self-pay 2023 [employer] BLUE CARD PPO OOS [id number] 2014 Unknown ANTHEM [id number] Unknown [id number] 2012 Unknown ANTHEM BLUE CARD PPO OOS [id number] 2012-Present [phone] [address] [place] [address] PPO [id number] 2012 Unknown [id number] 1963 Unknown [id number] Unknown [id number] Unknown [id number] Unknown [id number] Unknown [id number] Social History Date Type Detail Facility Start: 06-30-2014 End: 05-18-2024 Tobacco smoking status NHIS Ex-smoker [facility] History of tobacco use Cigarette Smoker [facility] Start: 10-12-2021 End: 11-23-2024 Alcohol intake Current non-drinker of alcohol (finding) [facility] Start: 1965 Sex Assigned At Not on file [facility] Start: 04-04-2022 End: 04-14-2022 Exposure to SARS-CoV-2 (event) Not sure [facility] Start: 07-14-2022 End: 11-16-2023 Tobacco smoking status NHIS Unknown if ever smoked [facility] Start: 07-24-2015 None [facility] Start: 07-24-2015 Spouse/ Signif icant Other [facility] Start: 07-24-2015 Non-smoker [facility] Start: 1965 Sex Assigned At Male [facility] History of tobacco use Current smoker [facility] Work Phone: Start: 06-30-2014 End: 05-14-2023 Cigarettes smoked current (pack per day) - Reported 1 [facility] Work Phone: Start: 06-30-2014 End: 05-18-2024 Tobacco use and exposure Smokeless tobacco non-user [facility] Work Phone: Start: 10-15-2022 Tobacco Comment quit [address] [place] [address] Start: 10-15-2022 End: 05-14-2023 Tobacco use panel [facility] Work Phone: Start: 08-29-2012 Adult Depression Screening Assessment 0 [facility] Work Phone: Start: 05-26-2025 Alcoholic beverage intake Lifetime non-drinker (finding) [facility] How often to you hav e a drink containing alcohol? Never [facility] Goals Date Patient Goal Desired Activity /State Functional Status Date Assessment Result Facility 05-26-2025 Total score [AUDIT-C] 0 05/26/20 25 12:53 PM Kalli Escobedo MA [facility] 11-20-2014 Are you deaf, or do you have serious difficulty hearing No 11/20/2014 8:55 AM Edgard Monroy [facility] 11-20-2014 Are you blind, or do you have serious difficulty seeing, even when wearing glasses No 11/20/2014 8:55 AM Edgard Monroy [facility] 11-20-2014 Do you have serious difficulty walking or climbing stairs No 11/20/2014 8:55 AM Edgard Monroy [facility] 11-20-2014 Do you have difficul ty dressing or bathing No 11/20/2014 8:55 AM Edgard Monroy [facility] 11-20-2014 Because of a physica l, mental, or emotional condition, do you have difficulty doing errands alone such as visiting a physician's office or shopping No 11/20/2014 8:55 AM Edgard Monroy [facility] Mental Status Date Assessment Result Facility 07-20-2023 Cognitive function Voice/Name [facility] Work Phone: 11-20-2014 Because of a physica l, mental, or emotional condition, do you have serious difficulty concentrating, remembering, or making decisions No 11/20/2014 8:55 AM Edgard Monroy [facility] Clinical Notes 01-29-2022 to 05-26-2025 Patient InstructionsIsrael Santiago MD - 05/26/2025 1:00 PM EDTTelephone Encounter - Israel Santiago MD - 03/20/2025 10:59 PM EDTTelephone Encounter - Indigo Hitchcock MA - 11/25/2024 9:04 AM EST Note Date & Type Note Facility 05-26-2025 Instructions Israel Santiago MD - 05/26/2025 1:35 PM EDT Please get labs done on or after 11/10/2025 prior to your next visit. We discussed your gastrointestinal symptoms: - Continue taking Bentyl (dicyclomine) as needed for abdominal pain or stress-related symptoms. You mentioned you typically use it once or twice a day when necessary. No refill is needed at this time, but if you require a refill, please contact Dr. Pereira's office directly. - Continue taking Creon as prescribed for pancreatic insufficiency. Based on your discussion with Dr. Pereira, it is unlikely you will discontinue this medication in the future. - Continue following a gluten-free and oil-free diet to manage your symptoms. Be cautious about cross-contamination when dining out, as discussed. - You may continue drinking milk if it does not exacerbate your symptoms, as it seems to provide some nutritional benefit for you. We discussed your occasional nausea: - Continue using your prescribed nausea medication as needed, as it has been effective in managing your symptoms. We discussed your occasional heartburn: - Continue taking omeprazole as prescribed. For breakthrough heartburn, you may use Tums as needed, which has been effective for you. We discussed your family history: - Your family history was updated to include details about your brother Shalom, who from complications related to esophageal varices and other health issues, as well as your other brothers and their health conditions. We discussed vaccinations: - You are due for a pneumonia vaccine, which is now recommended starting at age 50. This is a one-time vaccine. If you are okay with receiving it, please let us know, and we can administer it at your next visit. We discussed your next steps: - Blood work and urine tests were ordered and can be completed today before you leave. - Your prescriptions, including oxycodone, have been sent to your preferred pharmacies ([facility] for oxycodone and [facility] for others). - At your next visit, you may see one of our advanced practice providers ([facility] or [facility]) as part of our team-based care approach. If you have a preference, please let us know. Please continue monitoring your symptoms and let us know if anything worsens or changes. documented in this encounter [facility] 05-26-2025 History of Present illness Narrative Chief Complaint Patient presents with: Well Adult HPI Michael Alexandra is a 59 year old male who presents here today for a Physical and chronic health issues. Patient with Hx of chronic pancreatitis, Elevated fasting blood sugar, GERD, Hyperlipidemia, Migraines as well as those reviewed and addressed below in ROS. Labs ordered to be completed today, but not done. HM - Anxiety/Depression screening negative. Michael reports increased abdominal pain over the past few months, describing difficulty distinguishing between gastric and pancreatic pain. He uses Bentyl as needed, occasionally up to twice daily, for abdominal discomfort and stress, prescribed by Dr. Pereira, whom he continues to see. He denies the need for a Bentyl refill at this time. He also takes Creon for pancreatic insufficiency and has been advised by Dr. Pereira that discontinuation is unlikely due to his pancreatic condition. He experiences occasional nausea and emesis, managed with antiemetic medication. He also reports occasional heartburn, usually controlled with omeprazole, but recently had a severe episode relieved by Tums. He denies significant diarrhea, hematochezia, hematuria, or changes in urinary frequency. He follows a gluten-free and oil-free diet due to celiac disease and notes that dairy products, particularly milk, seem to provide nutritional benefits without exacerbating symptoms. He denies recent fevers, frequent headaches, changes in hearing or vision, nasal or throat issues, neck lumps or swelling, wheezing, hemoptysis, chest pain, palpitations, or lower extremity edema. He reports no unusual muscle or joint aches, skin lesions, rashes, or sores, except for a recent case of poison flash that resolved slowly. He denies easy bruising, bleeding, changes in heat or cold tolerance, increased thirst, syncope, seizures, or tremors. He has not undergone any surgeries in the past year and is unaware of any new health issues in his blood relatives. He has three living brothers and one brother, Shalom, who from esophageal varices and had a history of colitis. His mother of colon cancer, and his father had a stroke and colitis. Another brother also has colitis. He has no living grandparents. He lives with his daughter and her family, including a 4-month-old grandson, while they build a house nearby. He enjoys spending time with his grandson and observing his daughter's parenting. Past medical history, appointments, medications, allergies reviewed. Previous Medical History PAST MEDICAL HISTORY Diagnosis Date Allergic rhinitis 11/05/2005 Anal fissure 01/22/2012 Celiac disease (HCC) 10/15/[address] 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 10/30 liver US normal; 11/01 CT: poss. 4mm liver cyst; 09/29 hepatitis serology A,B,C negative Pancreatic cyst (HCC) 05/23/2019 With Hx of pancreatitis will get US every 3 yrs. Next due 2020. Pancreatic insufficiency (HCC) 05/18/[address] Pereira Proteinuria 11/28/2016 Recheck 12/2016 was neg. Sphincter of Oddi dysfunction 2015 Syncope and collapse 12/2005 referral to [facility] Isa[facility], neuro: diagnosed as [...] normal-family history- ESOPHAGOGASTRODUODENOSCOPY TRANSORAL DIAGNOSTIC 10/05/2007 EGD IMMUNOCHEMICAL FECAL OCCULT BLOOD TEST 11/28/2016 negative PAST SURGICAL HISTORY OF 1984 muscle biopsy--myositis?; symptoms resolved at intake visit 06/04 SEPTOPLASTY/SUBMUCOUS RESECJ W/WO CARTILAGE GRF 2003 Septoplasty SPHINCTEROTOMY ANAL DIVISION SPHINCTER SPX 02/03/12 Family History FAMILY HISTORY Problem Relation Age of Onset Colon Cancer Mother age 52, mets to liver Allergies Mother Stroke Father GI Father colitis, details unknown Allergies Sister other (esophageal varacies) Brother ruptured GI Brother colitis GI Brother colitis, details unknown; Diabetes Other none Coronary Artery Disease Other none Patient Allergies ALLERGIES Allergen Reactions Penicillins Swelling, Shortness of Breath Depakote [Divalproe* Other: See Comments pancreatitis Tetanus Vaccines An* Swelling Topamax [Topiramate] Other: See Comments Renal stones Current Medications Current Outpatient Medications on File Prior to Visit Medication Sig atorvastatin (LIPITOR) 10 mg tablet TAKE 1 TABLET DAILY AT BEDTIME FOR CHOLESTEROL omeprazole (PRILOSEC) 20 mg capsule Take 1 capsule by mouth once daily. propranolol ER (INDERAL LA) 80 mg 24 hr capsule Take 1 capsule by mouth once daily. yfjfiw-ltbxsfay-myjklda (CREON) 36,000-114,000- 180,000 unit delayed release capsule Take 3 capsules by mouth three times a day with meals. oxyCODONE IR (ROXICODONE) 5 mg immediate release tablet Take 1 tablet by mouth every 8 hours as needed for pain for up to 7 days. This is for recurrent pancreatitis outbreaks. dicyclomine (BENTYL) 10 mg capsule TAKE 1 CAPSULE BY MOUTH 2 TIMES A DAY NEEDED FOR ABDOMINAL PAIN. MAY TAKE AN ADDITIONAL CAPSULE NEEDED. promethazine (PHENERGAN) 12.5 mg tablet Take 1 tablet by mouth every 6 hours as needed. SUMAtriptan Succinate 6 mg/0.5 mL crtg Inject 6 mg subcutaneously. As needed for migraine. May repeat after 1 hour if needed. No more than 2 doses in 24 hours. No current facility-administered medications on file prior to visit. Social History SOCIAL HISTORY[1] Review of Symptoms REVIEW OF SYSTEMS GENERAL: [...] swelling, hypertension, CHF or palpitations GI: No diarrhea, No frequent heartburn or reflux symptoms, and no blood. Has nausea and sometimes vomiting with the pancreatic pain. : No history of dysuria, frequency or blood. MUSCULOSKELETAL: Negative for new or changes in his typical joint pain or swelling, back pain or muscle pain SKIN: Negative for lesions, rash, and itching PSYCH: Negative for sleep disturbance, mood disorder and recent psychosocial stressors HEMATOLOGY/LYMPHOLOGY: Negative for prolonged bleeding, bruising easily or swollen nodes ENDOCRINE: Negative for cold or heat intolerance, polyuria, polydipsia and goiter NEURO: No history of headaches, syncope, paralysis, seizures or tremors SEE HPI EXAM: BP 112/80 (BP Site: Left Arm, BP Position: Sitting, BP Cuff Size: Regular Adult) Pulse 66 Resp 16 Ht 172.1 cm (5' 7.75) Wt 79.4 kg (175 lb) BMI 26.81 kg/m Last 6 Encounter Wt Readings: Date: Wt: 05/26/2025 79.4 kg (175 lb) 11/23/2024 80.7 kg (178 lb) 05/18/2024 77.1 kg (170 lb) 11/18/2023 78.5 kg (173 lb) 05/14/2023 77.6 kg (171 lb) 10/15/2022 78.9 kg (174 lb) General Appearance: Well appearing, alert, in no acute distress, well-hydrated, well nourished.. Skin: Skin color, texture, turgor normal, no suspicious rashes or lesions. Head: Normocephalic, no masses, lesions, tenderness or abnormalities. Eyes: Anicteric sclera. Pupils are equally round and reactive to light. Extraocular movements are intact. . Ears: External ears, Tm's normal, canals clear. Nose/Sinuses: Nares normal, septum [...] or cyanosis. Good capillary refill. . Musculoskeletal: Spine range of motion normal. Muscular strength intact, No joint swelling, deformity, or tenderness. Peripheral Pulses: Normal. Neurologic: Gait normal. Reflexes normal and symmetric. Sensation grossly intact.. Genitalia: Normal. Rectal: Normal exam. Health Maintenance List Depression Screening Never done Anxiety Screening Never done Diabetes Screening due on 11/23/2027 Prostate Cancer Screening Discussion due on 05/18/2029 Lipid Screening due on 11/23/2029 Colorectal Cancer Screening due on 07/20/2033 RSV Vaccine(1 - 1-dose 75+ series) due on 2038 Shingrix Vaccine Completed Pneumococcal Vaccine: 50+ Completed DTaP,Tdap,Td Vaccine Discontinued Influenza Vaccine Discontinued Hepatitis C Screening Discontinued HIV Screening Discontinued Data reviewed Assessment and Plan 1. Well adult exam (Z00.00) Routine well adult exam performed; no acute concerns identified. - Recommended pneumococcal vaccine per updated guidelines for adults 50 and older; discussed rationale and most common side effect (localized erythema). Pt given Prev-20 - Patient consented to vaccination. - Discussed RSV vaccine, which will be recommended at age 65. - Follow-up in 6 months with [facility]. 2. Mixed hyperlipidemia (E78.2) Ongoing management. - Continue current management. - await labs to determin if adjustments needed. 3. Elevated hemoglobin A1c (R73.09) Ongoing management. - Continue current management. - await labs 4. Gastroesophageal reflux disease without esophagitis (K21.9) GERD generally well controlled with omeprazole; occasional breakthrough symptoms managed with Tums. - Continue omeprazole as prescribed. - Continue use of Tums as needed for breakthrough symptoms. - await labs. 5. Migraine without aura and without status migrainosus, not intractable (G43.009) No significant changes reported. - Continue current management. 6. Idiopathic chronic pancreatitis (HCC) (K86.1) 7. Pancreatic cyst (HCC) (K86.2) 8. Pancreatic insufficiency (HCC) (K86.89) Chronic pancreatitis with pancreatic insufficiency; ongoing Creon therapy. Occasional abdominal pain and nausea managed with Bentyl and antiemetics. - Continue Creon as prescribed. - Continue Bentyl as needed for abdominal pain. - Continue antiemetic as needed for nausea. - Continue gluten-free and oil-free diet. - cont prn Oxycodone. - cont f/u with gasto as well. 9. Celiac disease (HCC) (K90.0) Celiac disease managed with gluten-free diet. - Continue strict gluten-free diet. 10. Encounter for immunization (Z23) Pneumococcal vaccine administered, Prev.20 - No further action required at this time. 11. Encounter for screening examination for other mental health and behavioral disorders (Z13.39) - no active issues. 12. Screening for depression (Z13.31) - no active issues. Requested Prescriptions Signed Prescriptions Disp Refills omeprazole (PRILOSEC) 20 mg capsule 90 capsule 1 Sig: Take 1 capsule by mouth once daily. promethazine (PHENERGAN) 12.5 mg tablet 90 tablet 0 Sig: Take 1 tablet by mouth every 6 hours as needed. oxyCODONE IR (ROXICODONE) 5 mg immediate release tablet 21 tablet 0 Sig: Take 1 tablet by mouth every 8 hours as needed for pain for up to 7 days. This is for recurrent pancreatitis outbreaks. propranolol ER (INDERAL LA) 80 mg 24 hr capsule 90 capsule 1 Sig: Take 1 capsule by mouth once daily. PDMP website checked and validated. All prescriptions have been APPROPRIATELY filled. No suspicious activity was identified. 05/26/2025 by Israel Santiago MD F/u 6 months check Lipids and A1c prior. Israel Santiago MD I spent a total of 42 minutes on the date of the service which included preparing to see the patient, [id number] patient care, completing clinical documentation, performing a medically appropriate examination, counseling and educating the patient/family/caregiver and ordering medications, tests, or procedures. Recording using [employer] software for draft documentation of the visit was discussed with the patient/authorized new accounts banking representative; all questions welcomed and answered. Patient/authorized new accounts banking representative agreed to proceed SENSITIVE EXAMINATION CONSENT: The sensitive examination was discussed with the Patient or Patient's Authorized Hydraulic Assembler. As applicable, any other physician, advance practice provider, medical student, or other health professional student that will be observing or involved in the sensitive examination for educational or training purposes was discussed with the Patient or Authorized Hydraulic Assembler. The Patient or Authorized Hydraulic Assembler has agreed to proceed with the sensitive examination. [1] Social History Tobacco Use Smoking status: Former Current packs/day: 1.00 Average packs/day: 1 pack/day for 10.0 years (10.0 ttl pk-yrs) Types: Cigarettes Smokeless tobacco: Never Tobacco comments: quit 1993 Substance Use Topics Alcohol use: Never Drug use: No documented in this encounter [facility] 05-26-2025 Note HNO ID: [id number] Author: ISRAEL SANTIAGO MD Service: ? Author Type: Physician Type: Progress Notes Filed: 05/26/2025 13:54 Note Text: Chief Complaint Patient presents with: Well Adult HPI Michael Alexandra is a 59 year old male who presents here today for a Physical and chronic health issues. Patient with Hx of chronic pancreatitis, Elevated fasting blood sugar, GERD, Hyperlipidemia, Migraines as well as those reviewed and addressed below in ROS. Labs ordered to be completed today, but not done. HM - Anxiety/Depression screening negative. Micheal reports increased abdominal pain over the past few months, describing difficulty distinguishing between gastric and pancreatic pain. He uses Bentyl as needed, occasionally up to twice daily, for abdominal discomfort and stress, prescribed by Dr. Pereira, whom he continues to see. He denies the need for a Bentyl refill at this time. He also takes Creon for pancreatic insufficiency and has been advised by Dr. Pereira that discontinuation is unlikely due to his pancreatic condition. He experiences occasional nausea and emesis, managed with antiemetic medication. He also reports occasional heartburn, usually controlled with omeprazole, but recently had a severe episode relieved by Tums. He denies significant diarrhea, hematochezia, hematuria, or changes in urinary frequency. He follows a gluten-free and oil-free diet due to celiac disease and notes that dairy products, particularly milk, seem to provide nutritional benefits without exacerbating symptoms. He denies recent fevers, frequent headaches, changes in hearing or vision, nasal or throat issues, neck lumps or swelling, wheezing, hemoptysis, chest pain, palpitations, or lower extremity edema. He reports no unusual muscle or joint aches, skin lesions, rashes, or sores, except for a recent case of poison flash that resolved slowly. He denies easy bruising, bleeding, changes in heat or cold tolerance, increased thirst, syncope, seizures, or tremors. He has not undergone any surgeries in the past year and is unaware of any new health issues in his blood relatives. He has three living brothers and one brother, Shalom, who from esophageal varices and had a history of colitis. His mother of colon cancer, and his father had a stroke and colitis. Another brother also has colitis. He has no living grandparents. He lives with his daughter and her family, including a 4-month-old grandson, while they build a house nearby. He enjoys spending time with his grandson and observing his daughter's parenting. Past medical history, appointments, medications, allergies reviewed. Previous Medical History PAST MEDICAL HISTORY Diagnosis Date Allergic rhinitis 11/05/2005 Anal fissure 01/22/2012 Celiac disease (HCC) 10/15/[address] 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 10/30 liver US normal; 11/01 CT: poss. 4mm liver cyst; 09/29 hepatitis serology A,B,C negative Pancreatic cyst (HCC) 05/23/2019 With Hx of pancreatitis will get US every 3 yrs. Next due 2020. Pancreatic insufficiency (HCC) 05/18/[address] Pereira Proteinuria 11/28/2016 Recheck 12/2016 was neg. Sphincter of Oddi dysfunction 2015 Syncope and collapse 12/2005 referral to Kareem Isaacs, neuro: diagnosed as [...] WHEN PFRMD 12/25/2017 Colonoscopy - 5 year f (more content not included)... [facility] 03-20-2025 Telephone encounter Note The following approved medication requests have been transmitted electronically. Requested Prescriptions Signed Prescriptions Disp Refills atorvastatin (LIPITOR) 10 mg tablet 90 tablet 1 Sig: TAKE 1 TABLET DAILY AT BEDTIME FOR CHOLESTEROL Authorizing Provider: ISRAEL SANTIAGO MD [facility] 03-20-2025 Miscellaneous Notes The following approved medication requests have been transmitted electronically. Requested Prescriptions Signed Prescriptions Disp Refills atorvastatin (LIPITOR) 10 mg tablet 90 tablet 1 Sig: TAKE 1 TABLET DAILY AT BEDTIME FOR CHOLESTEROL Authorizing Provider: ISRAEL SANTIAGO MD Patient has been identified by name and date of : yes Patient phones for refill(s): Requested Prescriptions Pending Prescriptions Disp Refills atorvastatin (LIPITOR) 10 mg tablet 90 tablet 1 Sig: TAKE 1 TABLET DAILY AT BEDTIME FOR CHOLESTEROL Date of last office visit in primary care: 11/23/2024 Date of next office visit in primary care: 05/26/2025 Please advise. Thank you. Calli Small MA. documented in this encounter [facility] 03-20-2025 Telephone encounter Note Patient has been identified by name and date of : yes Patient phones for refill(s): Requested Prescriptions Pending Prescriptions Disp Refills atorvastatin (LIPITOR) 10 mg tablet 90 tablet 1 Sig: TAKE 1 TABLET DAILY AT BEDTIME FOR CHOLESTEROL Date of last office visit in primary care: 11/23/2024 Date of next office visit in primary care: 05/26/2025 Please advise. Thank you. Calli Small MA. [facility] 11-25-2024 Telephone encounter Note Patient notified of results and provider's instructions. Patient verbalizes understanding. Tatum Harris RN [facility] 11-25-2024 Miscellaneous Notes Patient notified of results and provider's instructions. Patient verbalizes understanding. Tatum Harris RN Left message for patient to contact office. Sent Diabetic booklet/info Indigo Hitchcock MA Let patient know his A1c is at 6.5% if it stays here or goes higher he will be considered diabetic. Work on reduced carbs, sugars, sweets and starches in diet. His lipid panel shows his trigs are only slightly elevated at 166 (goal<150 and were 317), HDL better at 38 (goal>40 and was 34) LDL good at 76. Cont work on diet. documented in this encounter [facility] 11-25-2024 Telephone encounter Note Left message for patient to contact office. Sent Diabetic booklet/info Indigo Hitchcock MA [facility] 11-24-2024 Telephone encounter Note Let patient know his A1c is at 6.5% if it stays here or goes higher he will be considered diabetic. Work on reduced carbs, sugars, sweets and starches in diet. His lipid panel shows his trigs are only slightly elevated at 166 (goal<150 and were 317), HDL better at 38 (goal>40 and was 34) LDL good at 76. Cont work on diet. [facility] 11-23-2024 Instructions Israel Santiago MD - 11/23/2024 2:31 PM EST Please get labs and urine test done on or after 05/12/2025 prior to your next visit. documented in this encounter [facility] 11-23-2024 History of Present illness Narrative Chief Complaint Patient presents with: F/U 6 months HPI Michael Alexandra is a 59 year old male who presents here today for 6 month follow up. Patient with Hx of Chronic pancreatitis, elevated fasting blood sugar, GERD, hyperlipidemia, Migraines as well as those reviewed and addresed below and in ROS. Patient sees Dr. Pereira. He is back on bentyl Patient has been doing ok. Has not been having the pancreatic flares as often. Past medical history, appointments, medications, allergies reviewed. Previous Medical History PAST MEDICAL HISTORY Diagnosis Date Allergic rhinitis 11/05/2005 Anal fissure 01/22/2012 Celiac disease 10/15/[address] 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 10/30 liver US normal; 11/01 CT: poss. 4mm liver cyst; 09/29 hepatitis serology A,B,C negative Pancreatic cyst 05/23/2019 With Hx of pancreatitis will get US every 3 yrs. Next due 2020. Pancreatic insufficiency 05/18/[address] Pereira Proteinuria 11/28/2016 Recheck 12/2016 was neg. Sphincter of Oddi dysfunction 2015 Syncope and collapse 12/2005 referral to Kareem Isaacs, neuro: diagnosed as [...] Medication Sig atorvastatin (LIPITOR) 10 mg tablet TAKE 1 TABLET DAILY AT BEDTIME FOR CHOLESTEROL uplzty-zlwghpwi-avzmnza (CREON) 36,000-114,000- 180,000 unit delayed release capsule Take 3 capsules by mouth three times a day with meals. oxyCODONE IR (ROXICODONE) 5 mg immediate release tablet Take 1 tablet by mouth every 8 hours as needed for pain for up to 7 days. This is for recurrent pancreatitis outbreaks. propranolol ER (INDERAL LA) 80 mg 24 hr capsule Take 1 capsule by mouth once daily. omeprazole (PRILOSEC) 20 mg capsule Take 1 capsule by mouth once daily. dicyclomine (BENTYL) 10 mg capsule TAKE 1 CAPSULE BY MOUTH 2 TIMES A DAY NEEDED FOR ABDOMINAL PAIN. MAY TAKE AN ADDITIONAL CAPSULE NEEDED. hyoscyamine (LEVSIN) 0.125 mg tablet Take 1 tablet by mouth twice daily. (Patient not taking: Reported on 11/18/2023) promethazine (PHENERGAN) 12.5 mg tablet Take 1 tablet by mouth every 6 hours as needed. SUMAtriptan Succinate 6 mg/0.5 mL crtg Inject 6 mg subcutaneously. As needed for migraine. May repeat after 1 hour if needed. No more than 2 doses in 24 hours. No current facility-administered medications on file prior to visit. Social History Social History Tobacco Use Smoking status: Former Current packs/day: 1.00 Average packs/day: 1 pack/day for 10.0 years (10.0 ttl pk-yrs) Types: Cigarettes Smokeless tobacco: Never Tobacco comments: [...] No nausea, vomiting, or diarrhea and No frequent heartburn or reflux symptoms ENDOCRINE: Negative for cold or heat intolerance, polyuria, polydipsia and goiter NEURO: No history of headaches, syncope, paralysis, seizures or tremors EXAM: BP 120/78 Pulse 72 Resp 16 Wt 80.7 kg (178 lb) BMI 27.06 kg/m Last 5 Encounter Wt Readings: Date: Wt: 11/23/2024 80.7 kg (178 lb) 05/18/2024 77.1 kg (170 lb) 11/18/2023 78.5 kg (173 lb) 05/14/2023 77.6 kg (171 lb) 10/15/2022 78.9 kg (174 lb) General Appearance: Well appearing, alert, in no acute distress, well-hydrated, well nourished.. Neck: Supple, no adenopathy; thyroid symmetric, normal size, no bruits. Lungs: Lungs clear to auscultation. No wheezing, rhonchi, rales.. Heart: RRR without murmur, gallop, or rubs. No ectopy. Abdomen: Normal abdominal exam, Abdomen soft, non-tender. Bowel sounds normal. No masses, organomegaly. Extremities: No deformities, edema, skin discoloration, good capillary refill. . Peripheral Pulses: Normal. Health Maintenance List Depression Screening Never done Pneumococcal Vaccine: 50+(1 of 1 - PCV) Never done Covid-19 Vaccine() due on 05/29/2024 Anxiety Screening due on 05/18/2025 Diabetes Screening due on 05/18/2027 Lipid Screening due on 05/18/2029 Prostate Cancer Screening Discussion due on 05/18/2029 Colorectal Cancer Screening due on 07/20/2033 RSV Vaccine(1 - 1-dose 75+ series) due on 2038 Shingrix Vaccine Completed DTaP,Tdap,Td Vaccine Discontinued Influenza Vaccine Discontinued Hepatitis C Screening Discontinued HIV Screening Discontinued Data reviewed A/P ASSESSMENT/PLAN: 1. Mixed hyperlipidemia - ICD9: 272.2, ICD10: E78.2 (primary diagnosis) - Control undetermined, due for labs - Continue current medications - Counseled on healthy diet and regular exercise - Discussed need for and benefit of weight loss. BMI 27.06 kg/(m^2) Check - LIPID PANEL, NONFASTING 2. Need for vaccination - ICD9: V05.9, ICD10: Z23 - INFLUENZA VACCINE, AGE 6MO-64YR, TRIVALENT (AFLURIA, FLULAVAL, FLUVIRIN, FLUZONE): given 3. Elevated hemoglobin A1c - ICD9: 790.29, ICD10: R73.09 Check - HEMOGLOBIN A1C 4. Gastroesophageal reflux disease without esophagitis - ICD9: 530.81, ICD10: K21.9 - Continue treatment with Prilosec 20 mg QD 5. Migraine without aura and without status migrainosus, not intractable - ICD9: 346.10, ICD10: G43.009 - stable no changes. 6. Idiopathic chronic pancreatitis (HCC) - ICD9: 577.1, ICD10: K86.1 Cont prn - OXYCODONE 5 MG TABLET - PDMP website checked and validated. All prescriptions have been APPROPRIATELY filled. No suspicious activity was identified. 11/23/2024 by Israel Santiago MD 7. Pancreatic insufficiency - ICD9: 577.8, ICD10: K86.89 - seeing Gastro. Cont Creon. 8. Encounter for immunization - ICD9: V03.89, ICD10: Z23 - PFIZER-BIONTECH COVID-19 VACCINE AGE 12+ YR (COMIRNATY): given Requested Prescriptions Signed Prescriptions Disp Refills omeprazole (PRILOSEC) 20 mg capsule 90 capsule 1 Sig: Take 1 capsule by mouth once daily. propranolol ER (INDERAL LA) 80 mg 24 hr capsule 90 capsule 1 Sig: Take 1 capsule by mouth once daily. utedyc-nduwesja-acqjfwm (CREON) 36,000-114,000- 180,000 unit delayed release capsule 810 capsule 3 Sig: Take 3 capsules by mouth three times a day with meals. oxyCODONE IR (ROXICODONE) 5 mg immediate release tablet 21 tablet 0 Sig: Take 1 tablet by mouth every 8 hours as needed for pain for up to 7 days. This is for recurrent pancreatitis outbreaks. F/u 6 months WAE check CMP, Lipid, UA, A1c, PSA, Mg, B12, CBC prior. Israel Santiago MD documented in this encounter [facility] 11-23-2024 Note HNO ID: [id number] Author: ISRAEL SANTIAGO MD Service: ? Author Type: Physician Type: Progress Notes Filed: 11/23/2024 20:24 Note Text: Chief Complaint Patient presents with: F/U 6 months HPI Michael Alexandra is a 59 year old male who presents here today for 6 month follow up. Patient with Hx of Chronic pancreatitis, elevated fasting blood sugar, GERD, hyperlipidemia, Migraines as well as those reviewed and addresed below and in ROS. Patient sees Dr. Pereira. He is back on bentyl Patient has been doing ok. Has not been having the pancreatic flares as often. Past medical history, appointments, medications, allergies reviewed. Previous Medical History PAST MEDICAL HISTORY Diagnosis Date Allergic rhinitis 11/05/2005 Anal fissure 01/22/2012 Celiac disease 10/15/[address] 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 10/30 liver US normal; 11/01 CT: poss. 4mm liver cyst; 09/29 hepatitis serology A,B,C negative Pancreatic cyst 05/23/2019 With Hx of pancreatitis will get US every 3 yrs. Next due 2020. Pancreatic insufficiency 05/18/[address] Pereira Proteinuria 11/28/2016 Recheck 12/2016 was neg. Sphincter of Oddi dysfunction 2015 Syncope and collapse 12/2005 referral to Kareem Isaacs, neuro: diagnosed as [...] Medication Sig atorvastatin (LIPITOR) 10 mg tablet TAKE 1 TABLET DAILY AT BEDTIME FOR CHOLESTEROL ngzbtb-owepfdam-nsptgng (CREON) 36,000-114,000- 180,000 unit delayed release capsule Take 3 capsules by mouth three times a day with meals. oxyCODONE IR (ROXICODONE) 5 mg immediate release tablet Take 1 tablet by mouth every 8 hours as needed for pain for up to 7 days. This is for recurrent pancreatitis outbreaks. propranolol ER (INDERAL LA) 80 mg 24 hr capsule Take 1 capsule by mouth once daily. omeprazole (PRILOSEC) 20 mg capsule Take 1 capsule by mouth once daily. dicyclomine (BENTYL) 10 mg capsule TAKE 1 CAPSULE BY MOUTH 2 TIMES A DAY NEEDED FOR ABDOMINAL PAIN. MAY TAKE AN ADDITIONAL CAPSULE NEEDED. hyoscyamine (LEVSIN) 0.125 mg tablet Take 1 tablet by mouth twice daily. (Patient not taking: Reported on 11/18/2023) promethazine (PHENERGAN) 12.5 mg tablet Take 1 tablet by mouth every 6 hours as needed. SUMAtriptan Succinate 6 mg/0.5 mL crtg Inject 6 mg subcutan (more content not included)... [facility] 10-19-2024 Telephone encounter Note Prescription Refill Information The patient has been identified by name and date of : Yes Caregiver verified no other encounters exist for this prescription request: Yes Caregiver confirmed with patient/requestor that no other refills are due, in the near future, with this provider at this time: Yes The last office visit in the department: 05/18/24 Does the patient have a future office visit with this provider/department: Yes Requested Prescriptions Pending Prescriptions Disp Refills atorvastatin (LIPITOR) 10 mg tablet 90 tablet 1 Sig: TAKE 1 TABLET DAILY AT BEDTIME FOR CHOLESTEROL Isaac Mora LPN October 19, 2024 8:02 AM [facility] 10-19-2024 Miscellaneous Notes Prescription Refill Information The patient has been identified by name and date of : Yes Caregiver verified no other encounters exist for this prescription request: Yes Caregiver confirmed with patient/requestor that no other refills are due, in the near future, with this provider at this time: Yes The last office visit in the department: 05/18/24 Does the patient have a future office visit with this provider/department: Yes Requested Prescriptions Pending Prescriptions Disp Refills atorvastatin (LIPITOR) 10 mg tablet 90 tablet 1 Sig: TAKE 1 TABLET DAILY AT BEDTIME FOR CHOLESTEROL Isaac Mora LPN October 19, 2024 8:02 AM documented in this encounter [facility] 05-19-2024 Telephone encounter Note Pt informed, verbalized understanding Dede Rosado MA [facility] 05-19-2024 Miscellaneous Notes Pt informed, verbalized understanding Dede Rosado MA Let patient know his A1c is 6.4% down from 6.5%. cont to work on reduced carbs, sweets, sugars and starches to avoid becoming diabetic. Lipid panel showed Trigs elevated at 317 (goal<150 and were 146), HDL is low at 34 (goal>40 and was 37), LDL is ok at 91. Working on reduced fat in diet and walking for exercise can help improve the Trigs and HDL. Electrolytes, kidney and liver functions, CBC, B12, prostate lab, CBC and UA were all ok. documented in this encounter [facility] 05-19-2024 Telephone encounter Note Let patient know his A1c is 6.4% down from 6.5%. cont to work on reduced carbs, sweets, sugars and starches to avoid becoming diabetic. Lipid panel showed Trigs elevated at 317 (goal<150 and were 146), HDL is low at 34 (goal>40 and was 37), LDL is ok at 91. Working on reduced fat in diet and walking for exercise can help improve the Trigs and HDL. Electrolytes, kidney and liver functions, CBC, B12, prostate lab, CBC and UA were all ok. [facility] 05-18-2024 Instructions Israel Santiago MD - 05/18/2024 3:53 PM EDT Check with insurance to see if RSV vaccine documented in this encounter [facility] 05-18-2024 History of Present illness Narrative Chief Complaint Patient presents with: Physical HPI Michael Alexandra is a 58 year old male who presents here today for Physical. Patient with Hx of Chronic pancreatitis, elevated fasting blood sugar, GERD, hyperlipidemia, Migraines as well as those reviewed and addresed below and in ROS. Patient sees Dr. Pereira last visit 10/2023. Was told he could retry the Levsin in place of the bentyl again. Patient has been doing ok. Has not been having the pancreatic flares as often. Past medical history, appointments, medications, allergies reviewed. Previous Medical History PAST MEDICAL HISTORY 11/05/2005: Allergic rhinitis 01/22/2012: Anal fissure 10/15/2022: Celiac disease Comment: Seeing Dr. Pereira 11/10/2016: Current use of proton pump inhibitor Comment: Mg check 10/201711/10/2016: Current use of proton pump inhibitor Comment: Mg check 10/2017 No date: Deviated nasal septum Comment: per CT: recurrent sinusitis 10/05/2007: Diaphragmatic hernia without mention of obstruction or gangrene 11/13/2017: Elevated fasting blood sugar 11/13/2017: Elevated hemoglobin A1c 03/27/2021: Ex-smoker Comment: Started 14 and quit 5 years later. Smoked 1 pack per week 11/08/2015: Gastroesophageal reflux disease without esophagitis Comment: Normal EGD 2006, while on PPI 05/12/2017: Idiopathic chronic pancreatitis (HCC) Comment: Causes was not determined (but may been the Depakote or Topamax he was on and is a side affect) 11/08/2015: Migraine without aura and without status migrainosus, not intractable Comment: has had benefits from Midrin, inderal, Imitrex, Ellavil. Topamax discontinued because of increased kidney stones No date: Mixed hyperlipidemia : Myopathy, unspecified Comment: myopathic illness characterized by proximal weakness, elevated CPK, normal NCS and EMG 09/29: Nonspecific abnormal results of liver function study Comment: 09/29 Liver enzymes noted elevated on routine labwork. 10/30 liver US normal; 11/01 CT: poss. 4mm liver cyst; 09/29 hepatitis serology A,B,C negative 05/23/2019: Pancreatic cyst Comment: With Hx of pancreatitis will get US every 3 yrs. Next due 2020. 11/28/2016: Proteinuria Comment: Recheck 12/2016 was neg. 2015: Sphincter of Oddi dysfunction 01/01: Syncope and collapse Comment: referral to Kareem Isaacs, neuro: diagnosed as vasovagal. EEG normal. Also 2D echo Normal; carotid duplex: 0-29% stenosis. CT WWO contrast brain: negative except left maxillary sinusitis; deviated septum, retention cyst No date: Urinary calculus, unspecified Comment: Renal stones, multiple CT confirmations: at least seven occurrences. Stones: calcium oxalate/ calcium phospate. 24 urine: calcium, creatinine, Na normal; citrate low, uric acid and oxalate high 11/08/2015: Vitiligo Previous Surgical History PAST SURGICAL HISTORY 07/04/14: CHOLECYSTECTOMY 02/02/12: COLONOSCOPY Comment: repeat 5 yrs 10/05/2007: COLONOSCOPY FLX DX W/COLLJ SPEC WHEN PFRMD Comment: Colonoscopy 12/25/2017: COLONOSCOPY FLX DX W/COLLJ SPEC WHEN PFRMD Comment: Colonoscopy - 5 year follow-up normal-family history- 10/05/2007: ESOPHAGOGASTRODUODENOSCOPY TRANSORAL DIAGNOSTIC Comment: EGD 11/28/2016: FECAL OCCULT BLOOD TEST Comment: negative 1985: PAST SURGICAL HISTORY OF Comment: muscle biopsy--myositis?; symptoms resolved at intake visit 06/04 2004: SEPTOPLASTY/SUBMUCOUS RESECJ W/WO CARTILAGE GRF Comment: Septoplasty 02/03/12: SPHINCTEROTOMY ANAL DIVISION SPHINCTER SPX Family History FAMILY HISTORY Problem Relation Age [...] Medication Sig atorvastatin (LIPITOR) 10 mg tablet TAKE 1 TABLET DAILY AT BEDTIME FOR CHOLESTEROL omeprazole (PRILOSEC) 20 mg capsule Take 1 capsule by mouth once daily. propranolol ER (INDERAL LA) 80 mg 24 hr capsule Take 1 capsule by mouth once daily. oxyCODONE IR (ROXICODONE) 5 mg immediate release tablet Take 1 tablet by mouth every 8 hours as needed for pain for up to 7 days. This is for recurrent pancreatitis outbreaks. dicyclomine (BENTYL) 10 mg capsule TAKE 1 CAPSULE BY MOUTH 2 TIMES A DAY NEEDED FOR ABDOMINAL PAIN. MAY TAKE AN ADDITIONAL CAPSULE NEEDED. gpcujb-bkkaamuf-tfpbhuc (CREON) 36,000-114,000- 180,000 unit delayed release capsule Take 3 capsules by mouth three times daily with meals. hyoscyamine (LEVSIN) 0.125 mg tablet Take 1 tablet by mouth twice daily. (Patient not taking: Reported on 11/18/2023) promethazine (PHENERGAN) 12.5 mg tablet Take 1 tablet by mouth every 6 hours as needed. SUMAtriptan Succinate 6 mg/0.5 mL crtg Inject 6 mg subcutaneously. As needed for migraine. May repeat after 1 hour if needed. No more than 2 doses in 24 hours. No current facility-administered medications on file prior to visit. Social History Social History Tobacco Use Smoking status: Former Current packs/day: 1.00 Average packs/day: 1 pack/day for 10.0 years (10.0 ttl pk-yrs) Types: Cigarettes Smokeless tobacco: Never Tobacco comments: [...] GI: No nausea, vomiting, or diarrhea, No frequent heartburn or reflux symptoms, and no blood. : No history of dysuria, frequency or blood MUSCULOSKELETAL: Negative for joint pain or [...] syncope, paralysis, seizures or tremors EXAM: BP 122/82 (BP Site: Right Arm, BP Position: Sitting, BP Cuff Size: Regular Adult) Pulse 64 Resp 16 Ht 172.7 cm (5' 8) Wt 77.1 kg (170 lb) BMI 25.85 kg/m Last 6 Encounter Wt Readings: Date: Wt: 05/18/2024 77.1 kg (170 lb) 11/18/2023 78.5 kg (173 lb) 05/14/2023 77.6 kg (171 lb) 10/15/2022 78.9 kg (174 lb) 04/14/2022 78.5 kg (173 lb) 10/12/2021 78.9 kg (174 lb) General Appearance: Well appearing, alert, in [...] masses, organomegaly. Extremities: No deformities, edema, skin discoloration. Good capillary refill. . Musculoskeletal: Muscular strength intact, No joint swelling, deformity, or tenderness. Peripheral Pulses: Normal. Neurologic: Gait normal. Reflexes normal and symmetric. Sensation grossly intact.. Genitalia: Normal, Penis normal. No urethral discharge. Scrotum normal to palpation. No hernia.. Rectal: Normal exam. Health Maintenance List Depression Screening Never done Anxiety Screening Never done RSV Vaccine(1 - 1-dose 60+ series) due on 11/18/2024 Diabetes Screening due on 11/18/2026 Prostate Cancer Screening Discussion due on 05/07/2028 Lipid Screening due on 11/18/2028 Colorectal Cancer Screening due on 07/20/2033 Shingrix Vaccine Completed Covid-19 Vaccine Completed DTaP,Tdap,Td Vaccine Discontinued Influenza Vaccine Discontinued Hepatitis C Screening Discontinued HIV Screening Discontinued Data reviewed A/P ASSESSMENT/PLAN: 1. Well adult exam - ICD9: V70.0, ICD10: Z00.00 (primary diagnosis) - Counseled on healthy diet and regular exercise - Follow up for annual exam in one year - discussed RSV vaccine. 2. Elevated hemoglobin A1c - ICD9: 790.29, ICD10: R73.09 Check - HEMOGLOBIN A1C 3. Mixed hyperlipidemia - ICD9: 272.2, ICD10: E78.2 Await labs - Continue current medications - Counseled on healthy diet and regular exercise Check - COMPREHENSIVE METABOLIC PANEL - URINALYSIS, WITH MICROSCOPIC - LIPID PANEL, NONFASTING 4. Gastroesophageal reflux disease without esophagitis - ICD9: 530.81, ICD10: K21.9 - Continue treatment with Prilosec 20 mg QD - VITAMIN B12 5. Migraine without aura and without status migrainosus, not intractable - ICD9: 346.10, ICD10: G43.009 - clinically stable 6. Pancreatic insufficiency - ICD9: 577.8, ICD10: K86.89 - on meds and managed by gasrto 7. Pancreatic cyst - ICD9: 577.2, ICD10: K86.2 - monitored by Gastro 8. Celiac disease - ICD9: 579.0, ICD10: K90.0 - managed per gastro - COMPLETE BLOOD COUNT AND DIFFERENTIAL 9. Idiopathic chronic pancreatitis (HCC) - ICD9: 577.1, ICD10: K86.1 Cont prn - OXYCODONE 5 MG TABLET 10. Prostate cancer screening - ICD9: V76.44, ICD10: Z12.5 Check - PROSTATE-SPECIFIC ANTIGEN DIAGNOSTIC 11. Medication management - ICD9: V58.69, ICD10: Z79.899 Check - VITAMIN B12 - COMPLETE BLOOD COUNT AND DIFFERENTIAL Requested Prescriptions Signed Prescriptions Disp Refills oazdaf-rnowihsy-mlmozav (CREON) 36,000-114,000- 180,000 unit delayed release capsule 810 capsule 3 Sig: Take 3 capsules by mouth three times a day with meals. oxyCODONE IR (ROXICODONE) 5 mg immediate release tablet 21 tablet 0 Sig: Take 1 tablet by mouth every 8 hours as needed for pain for up to 7 days. This is for recurrent pancreatitis outbreaks. propranolol ER (INDERAL LA) 80 mg 24 hr capsule 90 capsule 1 Sig: Take 1 capsule by mouth once daily. omeprazole (PRILOSEC) 20 mg capsule 90 capsule 1 Sig: Take 1 capsule by mouth once daily. F/u in 6 months routine Israel Santiago MD documented in this encounter [facility] 05-04-2024 Telephone encounter Note Prescription Refill Information The patient has been identified by name and date of : Yes Caregiver verified no other encounters exist for this prescription request: Yes Caregiver confirmed with patient/requestor that no other refills are due, in the near future, with this provider at this time: Yes The last office visit in the department: 10/2023 Does the patient have a future office visit with this provider/department: Yes 04/2024 Requested Prescriptions Pending Prescriptions Disp Refills atorvastatin (LIPITOR) 10 mg tablet 90 tablet 1 Indigo Hitchcock MA May 04, 2024 9:22 AM [facility] 05-04-2024 Miscellaneous Notes Prescription Refill Information The patient has been identified by name and date of : Yes Caregiver verified no other encounters exist for this prescription request: Yes Caregiver confirmed with patient/requestor that no other refills are due, in the near future, with this provider at this time: Yes The last office visit in the department: 10/2023 Does the patient have a future office visit with this provider/department: Yes 04/2024 Requested Prescriptions Pending Prescriptions Disp Refills atorvastatin (LIPITOR) 10 mg tablet 90 tablet 1 Indigo Hitchcock MA May 04, 2024 9:22 AM documented in this encounter [facility] 01-11-2024 Miscellaneous Notes The following approved medication requests have been transmitted electronically. Requested Prescriptions Signed Prescriptions Disp Refills omeprazole (PRILOSEC) 20 mg capsule 90 capsule 1 Sig: Take 1 capsule by mouth once daily. Authorizing Provider: ISRAEL SANTIAGO propranolol ER (INDERAL LA) 80 mg 24 hr capsule 90 capsule 1 Sig: Take 1 capsule by mouth once daily. Authorizing Provider: ISRAEL SANTIAGO MD Patient has been identified by name and date of : Yes Patient phones for refill(s): Requested Prescriptions Pending Prescriptions Disp Refills omeprazole (PRILOSEC) 20 mg capsule 90 capsule 1 Sig: Take 1 capsule by mouth once daily. propranolol ER (INDERAL LA) 80 mg 24 hr capsule 90 capsule 1 Sig: Take 1 capsule by mouth once daily. Date of last office visit in primary care: 11/18/2023 Date of next office visit in primary care: 05/18/2024 Please advise. Thank you. Gaurang Hernandez LPN. documented in this encounter [facility] 11-24-2023 History of Present illness Narrative Scan on 11/23/2023 8:34 PM by Provider, SCAR Martinez: Miscellaneous Lab documented in this encounter [facility] 11-19-2023 Miscellaneous Notes Pt returned call and given provider's message below with verbalized understanding. Left message for pt to contact office. Isaac Mora LPN Let patient know his A1c is 6.5% which could be technically be diagnosed as diabetic. I want to wait for his next A1c and if still 6.5% or higher then he will be considered diabetic which would be due to his pancrease issues. Advise working on less carbs, sweet's, sugars and starches in diet. His other labs were ok. documented in this encounter [facility] 11-19-2023 Miscellaneous Notes Rx faxed. Isaac Mora LPN Addended by: DARBY SOTOMAYOR on: 11/19/2023 12:01 PM Modules accepted: Orders Electronic sending failed. Will print to be faxed. The following approved medication requests have been transmitted electronically. Requested Prescriptions Signed Prescriptions Disp Refills oxyCODONE IR (ROXICODONE) 5 mg immediate release tablet 21 tablet 0 Sig: Take 1 tablet by mouth every 8 hours as needed for pain for up to 7 days. This is for recurrent pancreatitis outbreaks. Authorizing Provider: DARBY WILKINS PA-C Prescription Oxycodone for pt below failed and did not go thru to the pharmacy. I called to check and they did not receive it. If it does not go thru again they said to try and fax. Please send again. Estefani Estes LPN documented in this encounter [facility] 11-19-2023 History of Present illness Narrative Scan on 11/18/2023 4:36 PM by Provider, External, PA-C: Miscellaneous Lab documented in this encounter [facility] 11-18-2023 Instructions Israel Santiago MD - 11/18/2023 2:13 PM EST If you think you want to get the RSV vaccine check with your insurance to see if covered at your doctors office or pharmacy. Please get labs and urine test done on or after 05/06/2024 prior to your next visit. documented in this encounter [facility] 11-18-2023 History of Present illness Narrative Chief Complaint Patient presents with: F/U 6 months HPI Michael Alexandra is a 58 year old male who presents here today for 6 month follow up. Patient with Hx of Chronic pancreatitis, elevated fasting blood sugar, GERD, hyperlipidemia, Migraines as well as those reviewed and addresed below and in ROS. Any new concerns today? None Any recent Er/hospital visits? None Patient sees Dr. Pereira last visit 11/16/2023. Monitoring his cysts. Had a bad pancreatic attack in Sep and then just one mild one since. Continues to use the oxycodone as needed. Past medical history, appointments, medications, allergies reviewed. [...] Syncope and collapse 01/01 referral to [facility] neuro: diagnosed as vasovagal. EEG normal. Also [...] Medication Sig atorvastatin (LIPITOR) 10 mg tablet TAKE 1 TABLET DAILY AT BEDTIME FOR CHOLESTEROL oxyCODONE IR (ROXICODONE) 5 mg immediate release tablet Take 1 tablet by mouth every 8 hours as needed for pain for up to 7 days. This is for recurrent pancreatitis outbreaks. omeprazole (PRILOSEC) 20 mg capsule Take 1 capsule by mouth once daily. propranolol ER (INDERAL LA) 80 mg 24 hr capsule Take 1 capsule by mouth once daily. gjtheh-equpiunc-dkfnvdw (CREON) 36,000-114,000- 180,000 unit delayed release capsule Take 3 capsules by mouth three times daily with meals. hyoscyamine (LEVSIN) 0.125 mg tablet Take 1 tablet by mouth twice daily. promethazine (PHENERGAN) 12.5 mg tablet Take 1 tablet by mouth every 6 hours as needed. SUMAtriptan Succinate 6 mg/0.5 mL crtg Inject [...] palpitations GI: No nausea, vomiting, or diarrhea ENDOCRINE: Negative for polyuria, polydipsia and goiter NEURO: No history of headaches, syncope, paralysis, seizures or tremors EXAM: BP 128/90 (BP Site: Right Arm, BP Position: Sitting, BP Cuff Size: Regular Adult) Pulse 60 Resp 16 Wt 78.5 kg (173 lb) BMI 25.92 kg/m BP 120/84 Pulse 60 Resp 16 Wt 78.5 kg (173 lb) BMI 25.92 kg/m Last 4 Encounter Wt Readings: Date: Wt: 11/18/2023 78.5 kg (173 lb) 05/14/2023 77.6 kg (171 lb) 10/15/2022 78.9 kg (174 lb) 04/14/2022 78.5 kg (173 lb) General Appearance: Well appearing, alert, in [...] . Peripheral Pulses: Normal. Health Maintenance List Covid-19 Vaccine(2022- season) due on 05/29/2023 RSV Vaccine(1 - 1-dose 60+ series) Never done Depression Assessment due on 09/28/2023 Diabetes Screening due on 05/07/2026 Lipid Screening due on 05/07/2028 Prostate Cancer Screening Discussion due on 05/07/2028 Colorectal Cancer Screening due on 07/20/2033 Shingrix Vaccine Completed DTaP,Tdap,Td Vaccine Discontinued Influenza Vaccine Discontinued Hepatitis C Screening Discontinued HIV Screening Discontinued Data reviewed A/P ASSESSMENT/PLAN: 1. Mixed hyperlipidemia - ICD9: 272.2, ICD10: E78.2 (primary diagnosis) - Controlled - Continue current medications - Counseled on healthy diet and regular exercise - await labs. 2. Elevated fasting blood sugar - ICD9: 790.21, ICD10: R73.01 - await A1c. 3. Migraine without aura and without status migrainosus, not intractable - ICD9: 346.10, ICD10: G43.009 - stale no changes. 4. Gastroesophageal reflux disease without esophagitis - ICD9: 530.81, ICD10: K21.9 - Continue treatment with Prilosec 20 mg QD 5. Idiopathic chronic pancreatitis (HCC) - ICD9: 577.1, ICD10: K86.1 - management per Gastro - cont prn oxycodone with attacks. 6. Pancreatic cyst - ICD9: 577.2, ICD10: K86.2 - as per 5 7. Need for vaccination - ICD9: V05.9, ICD10: Z23 - INFLUENZA VACCINE, AGE 6 MO - 64 YR, QUADRIVALENT (AFLURIA, FLULAVAL, FLUZONE): given - Phase Holographic Imaging COVID-19 VACCINE (2022- SEASON) AGE 12+ YR: given 10. Celiac disease - ICD9: 579.0, ICD10: K90.0 - management per gastro. The following approved medication requests have been transmitted electronically. Requested Prescriptions Signed Prescriptions Disp Refills oxyCODONE IR (ROXICODONE) 5 mg immediate release tablet 21 tablet 0 Sig: Take 1 tablet by mouth every 8 hours as needed for pain for up to 7 days. This is for recurrent pancreatitis outbreaks. PDMP website checked and validated. All prescriptions have been APPROPRIATELY filled. No suspicious activity was identified. 11/18/2023 by MD Israel Osorio MD F/u 6 months WAE check CMP, Lipid, UA, A1c, CBC, B12, Mg and PSA prior Israel Santiago MD documented in this encounter [facility] 11-17-2023 History of Present illness Narrative Scan on 11/16/2023 3:29 PM by Provider, SCAR Martinez: Chemistry documented in this encounter [facility] 10-25-2023 Miscellaneous Notes The following approved medication requests have been transmitted electronically. Requested Prescriptions Signed Prescriptions Disp Refills atorvastatin (LIPITOR) 10 mg tablet 90 tablet 1 Sig: TAKE 1 TABLET DAILY AT BEDTIME FOR CHOLESTEROL Authorizing Provider: ISRAEL SANTIAGO MD Patient has been identified by name and date of : Yes, Provider Israel Santiago MD Date October 24, 2023 Time [...] Ellen Villanueva Ma. documented in this encounter [facility] 07-23-2023 Miscellaneous Notes The following approved medication requests have been transmitted electronically. Requested Prescriptions Signed Prescriptions Disp Refills omeprazole (PRILOSEC) 20 mg capsule 90 capsule 1 Sig: Take 1 capsule by mouth once daily. Authorizing Provider: ISRAEL SANTIAGO propranolol ER (INDERAL LA) 80 mg 24 hr capsule 90 capsule 1 Sig: Take 1 capsule by mouth once daily. Authorizing Provider: ISRAEL SANTIAGO MD Last refill 01/14/23 Qty: 90 with 1 refill SOURAV 05/14/23 NOV 11/18/23 Isaac Mora LPN Pharmacy verified in [facility] Patient has been identified by name and [...] (174 lb) Not applicable Please advise. Mya Davila Pss documented in this encounter [facility] 07-21-2023 History of Present illness Narrative Scan on 07/20/2023 11:13 AM by Provider, SCAR Martinez: Colonoscopy Scan on 07/20/2023 11:10 AM by Provider, SCAR Martinez: Colonoscopy documented in this encounter [facility] 07-20-2023 Procedure note [facility] 07-20-2023 Procedure note [facility] 05-14-2023 History of Present illness Narrative Chief Complaint Patient presents with: Physical HPI Michael Alexandra is a 57 year old male [...] Syncope and collapse 01/01 referral to [facility] neuro: diagnosed as vasovagal. EEG normal. Also [...] Take 1 capsule by mouth once daily. tttsyb-tzlurnxq-uboekil (CREON) 36,000-114,000- 180,000 unit delayed release capsule [...] 68 Resp 16 Ht 174 cm (5' 8.5) Wt 77.6 kg (171 lb) SpO2 98% [...] Abs Lymph 1.00 - 4.00 k/uL 1.92 [place]% % 8.9 Abs [place] <0.87 k/uL 0.64 Eosin% % 6.0 Abs [...] Negative Ketones, Urine Trace, Negative Negative Specific [place], Ur 1.005 - 1.030 1.014 Hemoglobin/Blood,Ur Negative, [...] gastro. Requested Prescriptions Signed Prescriptions Disp Refills xtcmvf-lgwkkqac-bqiycid (CREON) 36,000-114,000- 180,000 unit delayed release capsule [...] months routine check CMP, Lipid and A1c Israel Santiago MD documented in this encounter [facility] 05-12-2023 History of Present illness Narrative Scan on 05/11/2023 2:35 PM by Provider, SCAR Martinez: Miscellaneous Lab documented in this encounter [facility] 04-27-2023 Miscellaneous Notes Patient has been identified [...] you. Estefani DANIELLE documented in this encounter [facility] 01-19-2023 History of Present illness Narrative Scan on 01/12/2023 4:37 PM by External Provider: Hematology Scan on 01/12/2023 5:05 PM by External Provider: Hematology Scan on 01/14/2023 3:36 PM by External Provider: Miscellaneous Lab Indigo Hitchcock MA documented in this encounter [facility] 01-14-2023 Miscellaneous Notes The following approved medication requests have been transmitted electronically. Requested Prescriptions Signed Prescriptions Disp Refills omeprazole (PRILOSEC) 20 mg capsule 90 capsule 1 Sig: Take 1 capsule by mouth once daily. Authorizing Provider: ISRAEL SANTIAGO propranolol ER (INDERAL LA) 80 mg 24 hr capsule 90 capsule 1 Sig: Take 1 capsule by mouth once daily. Authorizing Provider: ISRAEL SANTIAGO MD Patient has been identified by [...] patient. Beth Walters documented in this encounter [facility] 10-17-2022 Miscellaneous Notes Patient notified and voiced [...] reduce the Trigs. documented in this encounter [facility] 10-15-2022 Instructions Israel Santiago MD - 10/15/2022 2:51 PM EST Please get labs and urine test done on or after 04/03/2023 prior to your next visit. documented in this encounter [facility] 10-15-2022 History of Present illness Narrative Chief Complaint Patient presents with: F/U 6 months HPI Michael Alexandra is a 57 year old male [...] by mouth daily at bedtime. For cholesterol. yhmysx-skfvpkvl-sahfxcp (CREON) 36,000-114,000- 180,000 unit delayed release capsule [...] Abs Lymph 1.00 - 4.00 k/uL 2.44 [place]% % 8.6 Abs [place] <0.87 k/uL 0.72 Eosin% % 4.3 Abs [...] Negative Negative Ketones, Urine Negative Negative Specific [place], Ur 1.005 - 1.030 1.008 Hemoglobin/Blood,Ur Negative [...] ICD9: 579.0, ICD10: K90.0 - seeing Gastro: Dr. Pereira Requested Prescriptions Signed Prescriptions Disp Refills atorvastatin (LIPITOR) 10 mg tablet 90 tablet 1 Sig: Take 1 tablet by mouth daily at bedtime. For cholesterol. bpemlr-qoarhkak-kntypfp (CREON) 36,000-114,000- 180,000 unit delayed release capsule [...] lipid, UA, A1c, B12, Mg, PSA prior. Israel Santiago MD documented in this encounter [facility] 07-22-2022 Miscellaneous Notes Last refills 01/29/22 Qty: [...] Marisabel Estes Pss documented in this encounter [facility] 04-14-2022 Instructions Israel Santiago MD - 04/14/2022 2:36 PM EDT Please get labs and urine test done on or after 10/03/2022 prior to your next visit. documented in this encounter [facility] 04-14-2022 History of Present illness Narrative Chief Complaint Patient presents with: Physical HPI Michael Alexandra is a 56 year old male [...] by mouth daily at bedtime. For cholesterol. ejgneg-ufshyknm-uwquvug (CREON) 36,000-114,000- 180,000 unit delayed release capsule [...] 64 Resp 14 Ht 173.4 cm (5' 8.25) Wt 78.5 kg (173 lb) BMI 26.11 [...] No suspicious activity was identified. 04/14/2022 by Israel Santiago MD 7. Sphincter of Oddi dysfunction - ICD9: 576.5, ICD10: K83.4 - As per #6 8. Allergic rhinitis, unspecified seasonality, unspecified trigger - ICD9: 477.9, ICD10: J30.9 - Stable. F/u 6 months routine check LIPID, CMP and A1c prior Israel Santiago MD documented in this encounter [facility] 01-29-2022 Miscellaneous Notes Patient has been identified [...] Adrienne Campuzano RN documented in this encounter [facility] Evaluation note Diagnosis Well adult exam- Primary Routine general medical examination at a health care facility Mixed hyperlipidemia Elevated fasting blood sugar Impaired fasting glucose Gastroesophageal reflux disease without esophagitis Esophageal reflux Migraine without aura and without status migrainosus, not intractable Migraine without aura, without mention of intractable migraine without mention of status migrainosus Idiopathic chronic pancreatitis (HCC) Sphincter of Oddi dysfunction Spasm of sphincter of Oddi Allergic rhinitis, unspecified seasonality, unspecified trigger [facility] Diagnosis Onset Date Resolution Status Abnormal LFTs acute Chronic pancreatitis chronic Sphincter of Oddi dysfunction chronic [facility] Work Phone: Evaluation note* Diagnosis Mixed hyperlipidemia- Primary Elevated fasting [...] of other medications [facility] Diagnosis Onset Date Resolution Status Celiac disease acute Idiopathic pancreatitis acut e [facility] Work Phone: Evaluation noteNo assessment information available [facility] Work Phone: Evaluation note* Diagnosis Well adult exam- Primary Routine [...] pseudocyst of pancreas [facility] Diagnosis Onset Date Resolution Status Celiac disease chronic Idiopathic pancreatitis contract admin carlos Sphincter of Oddi dysfunction chronic [facility] Work Phone: Evaluation note* Diagnosis Mixed hyperlipidemia- Primary Elevated fasting blood sugar Impaired fasting glucose Migraine without aura and without status migrainosus, not intractable Migraine without aura, without mention of intractable migraine without mention of status migrainosus Gastroesophageal reflux disease without esophagitis Esophageal reflux Idiopathic chronic pancreatitis (HCC) Pancreatic cyst Cyst and pseudocyst of pancreas Medication management Encounter for long-term (current) use of other medications Prostate cancer screening Special screening for malignant neoplasm of prostate Need for vaccination Need for prophylactic vaccination and inoculation against unspecified single disease Celiac disease [facility] Diagnosis Idiopathic chronic pancreatitis (HCC) [facility] Diagnosis Well adult exam- Primary Routine general medical examination at a health care facility Elevated hemoglobin A1c Other abnormal blood chemistry Mixed hyperlipidemia Gastroesophageal reflux disease without esophagitis Esophageal reflux Migraine without aura and without status migrainosus, not intractable Migraine without aura, without mention of intractable migraine without mention of status migrainosus Pancreatic insufficiency Other specified disease of pancreas Pancreatic cyst Cyst and pseudocyst of pancreas Celiac disease Idiopathic chronic pancreatitis (HCC) Prostate cancer screening Special screening for malignant neoplasm of prostate Medication management Encounter for long-term (current) use of other medications [facility] Diagnosis Mixed hyperlipidemia- Primary Need for vaccination Need for prophylactic vaccination and inoculation against unspecified single disease Elevated hemoglobin A1c Other abnormal blood chemistry Gastroesophageal reflux disease without esophagitis Esophageal reflux Migraine without aura and without status migrainosus, not intractable Migraine without aura, without mention of intractable migraine without mention of status migrainosus Idiopathic chronic pancreatitis (HCC) Pancreatic insufficiency Other specified disease of pancreas Encounter for immunization Need for other specified prophylactic vaccination against single bacterial disease Prostate cancer screening Special screening for malignant neoplasm of prostate Medication management Encounter for long-term (current) use of other medications [facility] Diagnosis Well adult exam- Primary Routine general medical examination at a health care facility Mixed hyperlipidemia Elevated hemoglobin A1c Other abnormal blood chemistry Gastroesophageal reflux disease without esophagitis Esophageal reflux Migraine without aura and without status migrainosus, not intractable Migraine without aura, without mention of intractable migraine without mention of status migrainosus Idiopathic chronic pancreatitis (HCC) Celiac disease (HCC) Celiac disease Pancreatic cyst (HCC) Cyst and pseudocyst of pancreas Pancreatic insufficiency (HCC) Other specified disease of pancreas Encounter for immunization Need for other specified prophylactic vaccination against single bacterial disease Encounter for screening examination for other mental health and behavioral disorders Screening for depression [facility] Author Epifanio Pereira [facility] July 20, 2023 9:54am Note Date/Time July 20, 2023 9 :54am [facility] Medical Records Department [address] [place] [address] History & Physical Exam 07/20/23 0954 MR#: [id number] Acct: [id number] Name: MICHAEL ALEXANDRA Rep #:[id number] : 1965 57 From: Epifanio Pereira DO PCP: Dr. Israel Santiago MD Status:[facility] Location: [place] [address] History and Physical Date of Admission: 07/20/23 57 M who presents to the office today for FH colon cancer with mets to liver mother with age 52; father colitis; brother colitis with r/t esophageal vessel rupture. Prior workup: MRI abd 9.14.18 OSH with degradation of exam r/t motion. Distal pancreatic cyst 3mm. Hepatic subcentimeter cysts noted with right lobe, steatosis. *BGI established .17.22 with history of idiopathic chronic pancreatitis and previously diagnosed sphincter Oddi dysfunction by Dr. Pitts [facility]. Utilizes Creon 36k 2 tabs with meals to manage pancreatitis; increased approximately a year prior and aided in reducing frequency. Feels he is doing overall well but has issues several times a month with LUQ abdominal pain radiating into back, increased flatulence; symptoms previously lasted approximately a day but have since been lasting longer. Previous doctor prescribed PRN oxycodone for the painwhich was helpful and will follow a clear liquid diet. GERD and issue which is managed with Prilosec 20mg QD. ? Biochemical CRP, ANCA, amylase, CMP (ALT H69), lipase, ESR, GAME,ALBINA without pertinent abnormality. LDH H247, Celiac +, tiss transglutaminase H39 Stool testing C.Difficile (cancelled), enteric pathogen, lactoferrin WNL. Ova/parasites and giardia not run. Calprotectin H166, Elastase L183, total fats increased Contact 07.18.22 to discuss results. ? CT abd/pel 07.23.22 with findings suggestive of jejunal enteritisand moderate colonic gas and stool burden. OV 10.10.22 suspect celiac disease-causing EPI resulting in pancreatitis, though there is possibility of chronic pancreatitis not related to celiac disease. Perform blood/stool testing after 3 months of gluten free. OV 01.12.23 Feels he is doing well since going gluten free; will continue to haveintermittent bloating and pain that he can trace to foods. 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 ? Biochemical ESR, CRP WNL. ? Celiac +, tiss transglutaminase 4 ? Stool elastase L 137 Contact 01.15.23 with bloodwork results, start gluten free diet. Contact 01.22.23 to increase Creon to 3 with meals and two with snacks; call in 1-2 months with an update. ? Biochemical 05.07.23 ESR, CRP, celiac WNL. OV 05.22.23 Is doing over all well since last visit. Has been trying hard to continue gluten free diet. Still has intermittent abdominal pain. Unsure if related to gluten intake or not. BM normal/ ROS Const Constitutional: No fatigue ENT ENT: No difficulty swallowing Gastro GI: Positive for excessive flatus and nausea/dyspepsia; No abdominal pain, belching, bloating, change in bowel habits, change in stool character, coffee ground emesis, constipation, cramping, diarrhea, heartburn, difficulty swallowing, feeling full early, incontinent of stools, Vomiting blood/hematemesis, Blood in stool, loose stools, Black,tarry stools, pain with swallowing, vomiting or other Musc Musculoskeletal: No joint pain Skin Skin: No yellowing of the eye or itchy eyes Psych Psychiatric: No anxiety and No depression Endo Endocrine: No fatigue Aller/Imm Allergy/Immunologic: No itchy eyes Ag/Lymp Hematologic/Lymphatic: No easy bleeding or easy bruising Exam Const General: cooperative and comfortable Nutritional Appearance: average body habitus and well nourished HENMT Head: normal to inspection Ears: hearing grossly normal bilaterally Nose: external nose normal Face and sinus: normal facial exam Mouth: oral mucosae normal Throat: posterior oropharynx normal Eyes General: appearance normal, both eyes and all related structures Neck Neck: normal visual inspection Chest Chest palpation & inspection: normal inspection of the chest and normal palpation of entire chest wall Resp Effort & Inspection: normal respiratory effort Auscultation: Bilateral: Clear to Auscultation Cardio Palpation: normal PMI Rate: regular rate Rhythm: regular rhythm GI Inspection: normal to inspection Auscultation: normal bowel sounds Percussion: normal to percussion Palpation: no hepatosplenomegaly Skin General: no rashes or lesions noted Neuro General: patient alert Extrem General: normal to inspection Psych Affect: normal affect Quality Reporting Tobacco Screening ([facility] 138) Smoking Status: Former smoker Assessment and Plan Assessment and Plan (1) Celiac disease: Status: Chronic Plan: From his imaging showing jejunitis, stool studies that show elevated fecal calprotectin and low fecal elastase, a high antiendomysial antibody and a very high tissue transglutaminase antibody I suspect that he has celiac disease that is indirectly causing exocrine pancreatic insufficiency therefore resulting in pancreatitis. (2) Idiopathic pancreatitis: Status: Chronic Qualifiers: Chronicity: acute Acute pancreatitis complication: unspecified Qualified Code(s): K85.00 - Idiopathic acute pancreatitis without necrosis or infection Plan: It is possible that he has elements of chronic pancreatitis because he says thatanytime he has any alcohol he gets abdominal pain that is include sugar alcoholsand alcohols such as alcohol and mouthwash. Otherwise he does not take in any alcohol because of the pain associated with it. I told him that we would have to see what his tissue transglutaminase does, ESR, CRP, fecal calprotectin and fecal elastase is after 3 months of being on a gluten-free diet. 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 There are no clinicalchanges since date of exam. 07/20/23 [id number] <Electronically signed by Epifanio Friend DO> Cosigner Signature (if applicable): CC: Dr. 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 Advance Directive(s) 12/25/2017 9:54 AM Advance Directive(s) 12/21/2017 8:46 AM Advance Directive Response Recorded Date/ Time Advance Directives No July 23, 2015 4:18pm Living Will No July 23 4:18pm Power of Shell Plater No July 23, 2015 4:18pm Advance Directive Response Recorded Date/ Time Advance Directives No July 23, 2015 4:18pm Living Will No July 14 12:28pm Power of Shell Plater No July 14, 2023 12:28pm Advance Directive Response Recorded Date/ Time Advance Directives No July 23, 2015 3:18pm Living Will No July 14 11:28am Power of Shell Plater No July 14, 2023 11:28am Reason for Referral Specialty Diagnoses / Procedures Referred By Contfelecia t Referred To Contact Gastroenterology Diagnoses Idiopathic chronic pancreatitis (HCC) Sphincter of Oddi dysfunction Procedures CONSULT TO GASTROENTEROLOGY OFFICE/OUTPATIENT [facility] 60-74 MINUTES Israel Santiago MD [address] [place] [address] Referral ID Status Reason Start Date Expiration Date Visits Requested Visits Authorized [id number] Authorized PCP Requested Referral 04/14/2022 04/14/2023 1 1 Chief Complaint and Reason for Visit Chief Complaint Consult E ORDERS INT LABSPEC Reason for Visit Abnormal LFTs Chronic pancreatitis Sphincter of Oddi dysfunction Chief Complaint Consult E ORDERS INT LABSPEC ABD PAIN Reason for Visit Abnormal LFTs Chronic pancreatitis Sphincter of Oddi dysfunction Chief Complaint 3 MO FU 3 M FU E ORDER Reason for Visit Celiac disease Idiopathic pancreatitis Chief Complaint E ORDER Chief Complaint 4 MO FU Reason for Visit Celiac disease Idiopathic pancreatitis Sphincter of Oddi dysfunction Chief Complaint 4 MO FU ABD PAIN, CELIAC DISEASE Reason for Visit Celiac disease Idiopathic pancreatitis Sphincter of Oddi dysfunction Chief Complaint ABD PAIN, CELIAC DIS EASE IDIOPATHIC ACUTE PANCREATITIS 2 WK FU EORDER Reason for Visit Celiac disease Idiopathic pancreatitis Sphincter of Oddi dysfunction Family History No Family History Records Found Relationship Condition Age at Onset Recorded Date/T kobe mother Malignant neoplasm of colon Unknown father Transient ischemic attack Unknown Colitis Unknown brother Colitis Unknown Rupture of esophagus Unknown Summary Purpose Additional Source Comments Source Comments (unrecognize d section and content) In the event this informatio n is protected by the Federal Confidentiality of Alcohol and Drug Abuse Patient Records regulations: The Federal rules restrict any use of the information to criminally investigate or prosecute any alcohol or drug abuse patient.[facility] the event this information is protected by the Federal Confidentiality of Alcohol and Drug Abuse Patient Records regulations: The Federal rules restrict any use of the information to criminally investigate or prosecute any alcohol or drug abuse patient.[facility] HospitalIn the event this information is protected by the Federal Confidentiality of Alcohol and Drug Abuse Patient Records regulations: The Federal rules restrict any use of the information to criminally investigate or prosecute any alcohol or drug abuse patient.[facility]In the event this information is protected by the Federal Confidentiality of Alcohol and Drug Abuse Patient Records regulations: The Federal rules restrict any use of the information to criminally investigate or prosecute any alcohol or drug abuse patient.[facility] HospitalIn the event this information is protected by the Federal Confidentiality of Alcohol and Drug Abuse Patient Records regulations: The Federal rules restrict any use of the information to criminally investigate or prosecute any alcohol or drug abuse patient.[facility] HospitalIn the event this information is protected by the Federal Confidentiality of Alcohol and Drug Abuse Patient Records regulations: The Federal rules restrict any use of the information to criminally investigate or prosecute any alcohol or drug abuse patient.[facility] HospitalIn the event this information is protected by the Federal Confidentiality of Alcohol and Drug Abuse Patient Records regulations: The Federal rules restrict any use of the information to criminally investigate or prosecute any alcohol or drug abuse patient.[facility] HospitalIn the event this information is protected by the Federal Confidentiality of Alcohol and Drug Abuse Patient Records regulations: The Federal rules restrict any use of the information to criminally investigate or prosecute any alcohol or drug abuse patient.[facility] HospitalIn the event this information is protected by the Federal Confidentiality of Alcohol and Drug Abuse Patient Records regulations: The Federal rules restrict any use of the information to criminally investigate or prosecute any alcohol or drug abuse patient.[facility]In the event this information is protected by the Federal Confidentiality of Alcohol and Drug Abuse Patient Records regulations: The Federal rules restrict any use of the information to criminally investigate or prosecute any alcohol or drug abuse patient.[facility] HospitalIn the event this information is protected by the Federal Confidentiality of Alcohol and Drug Abuse Patient Records regulations: The Federal rules restrict any use of the information to criminally investigate or prosecute any alcohol or drug abuse patient.[facility] HospitalIn the event this information is protected by the Federal Confidentiality of Alcohol and Drug Abuse Patient Records regulations: The Federal rules restrict any use of the information to criminally investigate or prosecute any alcohol or drug abuse patient.[facility] HospitalIn the event this information is protected by the Federal Confidentiality of Alcohol and Drug Abuse Patient Records regulations: The Federal rules restrict any use of the information to criminally investigate or prosecute any alcohol or drug abuse patient.[facility] HospitalIn the event this information is protected by the Federal Confidentiality of Alcohol and Drug Abuse Patient Records regulations: The Federal rules restrict any use of the information to criminally investigate or prosecute any alcohol or drug abuse patient.[facility] HospitalIn the event this information is protected by the Federal Confidentiality of Alcohol and Drug Abuse Patient Records regulations: The Federal rules restrict any use of the information to criminally investigate or prosecute any alcohol or drug abuse patient.[facility] HospitalIn the event this information is protected by the Federal Confidentiality of Alcohol and Drug Abuse Patient Records regulations: The Federal rules restrict any use of the information to criminally investigate or prosecute any alcohol or drug abuse patient.[facility] HospitalIn the event this information is protected by the Federal Confidentiality of Alcohol and Drug Abuse Patient Records regulations: The Federal rules restrict any use of the information to criminally investigate or prosecute any alcohol or drug abuse patient.[facility] HospitalIn the event this information is protected by the Federal Confidentiality of Alcohol and Drug Abuse Patient Records regulations: The Federal rules restrict any use of the information to criminally investigate or prosecute any alcohol or drug abuse patient.[facility] HospitalIn the event this information is protected by the Federal Confidentiality of Alcohol and Drug Abuse Patient Records regulations: The Federal rules restrict any use of the information to criminally investigate or prosecute any alcohol or drug abuse patient.[facility] HospitalIn the event this information is protected by the Federal Confidentiality of Alcohol and Drug Abuse Patient Records regulations: The Federal rules restrict any use of the information to criminally investigate or prosecute any alcohol or drug abuse patient.[facility] HospitalIn the event this information is protected by the Federal Confidentiality of Alcohol and Drug Abuse Patient Records regulations: The Federal rules restrict any use of the information to criminally investigate or prosecute any alcohol or drug abuse patient.[facility] HospitalIn the event this information is protected by the Federal Confidentiality of Alcohol and Drug Abuse Patient Records regulations: The Federal rules restrict any use of the information to criminally investigate or prosecute any alcohol or drug abuse patient.[facility] HospitalIn the event this information is protected by the Federal Confidentiality of Alcohol and Drug Abuse Patient Records regulations: The Federal rules restrict any use of the information to criminally investigate or prosecute any alcohol or drug abuse patient.[facility] HospitalIn the event this information is protected by the Federal Confidentiality of Alcohol and Drug Abuse Patient Records regulations: The Federal rules restrict any use of the information to criminally investigate or prosecute any alcohol or drug abuse patient.[facility] HospitalIn the event this information is protected by the Federal Confidentiality of Alcohol and Drug Abuse Patient Records regulations: The Federal rules restrict any use of the information to criminally investigate or prosecute any alcohol or drug abuse patient.[facility] HospitalIn the event this information is protected by the Federal Confidentiality of Alcohol and Drug Abuse Patient Records regulations: The Federal rules restrict any use of the information to criminally investigate or prosecute any alcohol or drug abuse patient.[facility] HospitalIn the event this information is protected by the Federal Confidentiality of Alcohol and Drug Abuse Patient Records regulations: The Federal rules restrict any use of the information to criminally investigate or prosecute any alcohol or drug abuse patient.[facility] HospitalIn the event this information is protected by the Federal Confidentiality of Alcohol and Drug Abuse Patient Records regulations: The Federal rules restrict any use of the information to criminally investigate or prosecute any alcohol or drug abuse patient.[facility] Reason for Visit (unrecogniz ed section and content) Reason Onset Date Comments Refill Request 01/29/2022 Reason Comments Physical Reason Comments Refill Request Reason Comments F/U 6 months Reason Comments Results Reason Onset Date Comments Refill Request 01/14/2023 Reason Onset Date Comments Refill Request 04/27/2023 Reason Comments Outside [id number] Ordered Reason Comments Physical Reason Comments Outside Colonoscopy Reason Onset Date Comments Refill Request 07/23/2023 Reason Comments Medication Problem Reason Onset Date Comments Refill Request 01/11/2024 Reason Onset Date Comments Refill Request 05/03/2024 Reason Onset Date Comments Refill Request 10/19/2024 Reason Onset Date Comments Results 11/24/2024 Reason Onset Date Comments Refill Request 03/20/2025 Reason Comments [facility] Teams (unrecognized sec tion and content) Solar Installation Supervisor Relationship Specialty Start Date End Date Israel Santiago MD [address] [place] [address] PCP - General Family Practice 08/07/15 Solar Installation Supervisor Relationship Specialty Start Date End Date Israel Santiago MD [address] [place], [place] [id number] PCP - General Family Practice 08/07/15 Solar Installation Supervisor Relationship Specialty Start Date End Date Israel Santiago MD [address] [place] [address] PCP - General Family Medicine 08/07/15 Solar Installation Supervisor Relationship Specialty Start Date End Date Israel Santiago MD [address] [place] [address] PCP - General Family Medicine 08/07/15 Solar Installation Supervisor Relationship Specialty Start Date End Date Israel Santiago MD [address] [place] [address] PCP - General Family Medicine 08/07/15 Solar Installation Supervisor Relationship Specialty Start Date End Date Israel Santiago MD [address] [place] [address] PCP - General Family Medicine 08/07/15 Team Status: Active Member Role Status Dates No Primary Care Physician Family Provider Active Dr. Israel Santiago MD Primary Care Provider Active Team Status: Inactive Member Role Status Dates Dr. Israel Santiago MD Primary Care Provider, Referri ng Provider Active Dr. Epifanio Pereira DO Attending Provider Active Team Status: Inactive Member Role Status Dates Dr. Israel Santiago MD Primary Care Provider Active Dr. Epifanio Pereira DO Attending Provider, Referring Provider Active Team Status: Active Member Role Status Dates Dr. Israel Santiago MD Primary Care Provider Active Dr. Epifanio Pereira DO Attending Provider, Referring Provider Active Solar Installation Supervisor Relationship Specialty Start Date End Date Israel Santiago MD [address] [place] [address] PCP - General Family Medicine 08/07/15 Solar Installation Supervisor Relationship Specialty Start Date End Date Israel Santiago MD [address] [place] [address] PCP - General Family Medicine 08/07/15 Solar Installation Supervisor Relationship Specialty Start Date End Date Israel Santiago MD [address] [facility] [place] [address] PCP - General Family Medicine 08/07/15 Team Status: Active Member Role Status Dates Dr. Israel Santiago MD Primary Care Provider, Referri Provider Active Dr. Godfrey Friend , DO Attending Provider, Other Prov ider Active Solar Installation Supervisor Relationship Specialty Start Date End Date Israel Santiago MD [address] [facility] [place] [address] PCP - General Family Medicine 08/07/15 Solar Installation Supervisor Relationship Specialty Start Date End Date Israel Santiago MD [address] [facility] [place] [address] PCP - General Family Medicine 08/07/15 Solar Installation Supervisor Relationship Specialty Start Date End Date Israel Santiago MD [address] [facility] [place] [address] PCP - General Family Medicine 08/07/15 Solar Installation Supervisor Relationship Specialty Start Date End Date Israel Santiago MD [address] [facility] [place] [address] PCP - General Family Medicine 08/07/15 Solar Installation Supervisor Relationship Specialty Start Date End Date Israel Santiago MD [address] [facility] [place] [address] PCP - General Family Medicine 08/07/15 Solar Installation Supervisor Relationship Specialty Start Date End Date Israel Santiago MD [address] [facility] [place] [address] PCP - General Family Medicine 08/07/15 Solar Installation Supervisor Relationship Specialty Start Date End Date Israel Santiago MD [address] [place] [address] PCP - General Family Medicine 08/07/15 Solar Installation Supervisor Relationship Specialty Start Date End Date Israel Santiago MD [address] [place] [address] PCP - General Family Medicine 08/07/15 Solar Installation Supervisor Relationship Specialty Start Date End Date Israel Santiago MD [address] [place] [address] PCP - General Family Medicine 08/07/15 Batsheva Cowart, TOBACCO SPRAYER.WIRE BRUSH OPERATOR [address] [place] [address] Telecommunications Consultant Family Medicine 09/03/24 Darby Wilkins PA-C [address] [place] [address] Telecommunications Consultant Family Medicine 09/03/24 Solar Installation Supervisor Relationship Specialty Start Date End Date Israel Santiago MD [address] [place] [address] PCP - General Family Medicine 08/07/15 Batsheva Cowart, TOBACCO SPRAYER.WIRE BRUSH OPERATOR [address] [place] [address] Telecommunications Consultant Family Medicine 09/03/24 Darby Wilkins PA-C [address] [place] [address] Telecommunications Consultant Family Medicine 09/03/24 Solar Installation Supervisor Relationship Specialty Start Date End Date Israel Santaigo MD [address] [place] [address] PCP - General Family Medicine 08/07/15 Batsheva Cowart APRN.WIRE BRUSH OPERATOR [address] [place] [address] Telecommunications Consultant Family Medicine 09/03/24 Darby Wilkins PA-C [address] [place] [address] Telecommunications Consultant Family Medicine 09/03/24 Solar Installation Supervisor Relationship Specialty Start Date End Date Israel Santiago MD [address] [place] [address] PCP - General Family Medicine 01/02/25 Batsheva Cowart APRN.WIRE BRUSH OPERATOR [address] [place] [address] Telecommunications Consultant Family Medicine 02/27/25 Darby iWlkins PA-C [address] [place] [address] Telecommunications Consultant Family Medicine 02/27/25 Solar Installation Supervisor Relationship Specialty Start Date End Date Israel Santiago MD [address] [place] [address] PCP - General Family Medicine 01/02/25 Batsheva Cowart APRN.WIRE BRUSH OPERATOR [address] [place] [address] Telecommunications Consultant Family Medicine 02/27/25 Darby Wilkins PA-C [address] [place] [address] Telecommunications Consultant Family Medicine 02/27/25 Goals (unrecognized section and content) Goals may be documented in a n alternate sectionGoals may be documented in an alternate sectionGoals may be documented in an alternate sectionGoals may be documented in an alternate sectionGoals may be documented in an alternate sectionGoals may be documented in an alternate section (unrecognized sect ion and content) No Status Records FoundNo Status Records FoundNo Status Records FoundNo Status Records Found INFORMATION SOURCE (unrecogn ized section and content) DATE CREATED AUTHOR 11/04/2023 [facility] DATE CREATED AUTHOR AUTHOR'S ORGANIZ ATION 05/21/2024 [facility] DATE CREATED AUTHOR AUTHOR'S ORGANIZ ATION 07/06/2025 [facility] DATE CREATED AUTHOR AUTHOR'S ORGANIZ ATION 07/16/2025 [facility] FOR RECORDS PERTAINING TO PATIENTS WHO ARE [...] BE BASED ON THE PRIMARY CLINICAL RECORDS. [employer] [facility]. provides no warranty or guarantee of the accuracy or completeness of information in this document.
== END | disposition home or self-care (01) ==
PROVIDERS: PCP Family Medicine; Referring Provider Internal Medicine Gastroenterology; Visit Provider Internal Medicine Gastroenterology
DX: R10.84 Generalized abdominal pain (principal)
CPT/HCPCS: 78264; A9541